=== PATIENT | female | born 1940 | race Caucasian/White ===

== ENCOUNTER 2024-01-16 15:54 | Inpatient (IN) | payer MEDICARE, SELFPAY ==
[2024-01-16] VITALS (38 sets, daily range): BP systolic 74–127; BP diastolic 27–105; BMI 25.1
--- NOTE | 2024-01-16 11:30 | ED.GENMED ---
Addendum entered and electronically signed by Jaime Hill DO 01/16/24 13:12:
Nursing tells me PICC line was placed yesterday at [facility] she was discharged from [facility] on the fourth of this month apparently old records have been requested
Original Note:
History of Present Illness
General
Chief Complaint: Swelling
Source: patient
Exam Limitations: none
Time Seen by Provider: 01/16/24 10:44
Nursing documentation reviewed up to this point in time: agreed with
Travel History
Have you had any contact with someone who has COVID-19?: No
Do you have any symptoms of coronavirus? Fever > 100 degrees, chills, cough, shortness of breath, sore throat, loss of taste or smell, muscle aches, or headache?: No
History of Present Illness
History of Present Illness:
group home patient presents with swelling and low blood pressure apparently has A-fib congestive heart failure and infiltrated PICC line on the right upper extremity wound on her right heel, and buttocks
Other history is limited patient is confused hypotensive
Prior visits to [facility]
Past History
Past History
ED Past Medical History: Arrthythmia, CHF, HTN, Renal failure and Psychiatric
Social History
Tobacco: Other
Alcohol: Other
Drug: Other
Personal: Other
Living: group home
Employment: Not employed
Family History
Family History: Unable to obtain
Review of Systems
Review of Systems
Other source history: transfer record
All Other Systems: Not applicable
Phy Exam
Physical Exam
Physical Exam:
Physical Exam
General: Ill-appearing for
Neck: Jaundice
Heart: Regular
Lungs: Bibasilar crackles
Abdomen: Mild diffuse tenderness
Neuro: Confused, follows simple commands
Skin: no rash
Psychiatric: Disheveled
Extremities: Swelling of the right upper extremity site of a PICC line lower extremity swelling is present Steri-Strip wound on the right posterior calf pressure ulcer in the right posterior heel
Scores
Heart Failure Risk
Heart Failure Risk Score: Not Applicable
Course
Orders/Labs/Results
Orders:
Orders
01/16/24 10:49
Electrocardiogram (*1) Urgent
Reason for Study: Chest Pain
Cardiac Monitoring- Treatment ONCE
EKG- Treatment ONCE
IV Insert/Care/Rem.- Treatment PRN
01/16/24 11:11
Straight cath- Treatment ONCE
CR Chest Portable - 1 View Urgent
Comment:
Reason For Exam: low bp
Reason Study Needs to be Portable: Patient Unstable
01/16/24 11:19
Foot, Right 2 View [CR Foot - Right 2 Views] Urgent
Comment:
Reason For Exam: swelling
Tib/Fib, Right 2 View [CR Leg Tibia/fibula Right 2 Vw] Urgent
Comment:
Reason For Exam: swelling
01/16/24 11:25
Add On- LAB Urgent
Tests Added?: esr/crp/procalcitonin
Rectal Temp- Treatment ONCE
01/16/24 11:31
C-Reactive Protein Urgent
Comment: ADD ON
Complete Blood Count/With Diff Urgent
Comprehensive Metabolic Panel Urgent
Erythrocyte Sed Rate Urgent
Comment: ADD ON
Lactic Acid Urgent
NT-proBNP Urgent
Procalcitonin Urgent
Comment: ADD ON
TSH Urgent
Troponin I Urgent
01/16/24 11:35
0.9% Sodium Chloride 1000 ml [Nss] 1,000 ml IV BOLUS
01/16/24 11:42
0.9% Sodium Chloride 500 ml [Nss] 500 ml IV BOLUS
01/16/24 11:45
Blood Culture Q30M
CAROL Source: Blood/Venous
Specimen Description:
01/16/24 12:03
Urinalysis Reflex To Culture Urgent
Date Specimen was Collected: 01/16/24
Time Specimen was Collected: 12:00
Urine Microscopic Reflex Cult Urgent
Urine Culture Urgent
CAROL Source: U
Specimen Description:
Obtained by: Random
Date Specimen was Collected: 01/16/24
Time Specimen was Collected: 12:00
01/16/24 12:06
CT Abd/pel Without Iv Or Oral Urgent
Comment:
Reason For Exam: arf sepsis
01/16/24 12:24
Blood Culture Q30M
CAROL Source: Blood/Venous
Specimen Description:
01/16/24 12:36
Aztreonam [Azactam] 1,000 mg IV NOW STA
01/16/24 12:40
0.9% Sodium Chloride 1000 ml [Nss] 1,000 ml IV BOLUS
01/16/24 12:48
Vancomycin [Vancocin] 1,500 mg 0.9% Sodium Chloride [Nss] 20 ml 0.9% Sodium Chloride 250 ml [Nss] 250 ml IV NOW
Abnormal Lab Results
01/16/24 01/16/24
11:31 12:03
WBC 19.2 H 10^3/uL
(4.8-10.8)
RBC 3.15 L 10^6/uL
(4.20-5.40)
Hgb 9.3 L g/dL
(12.0-16.0)
Hct 28.6 L %
(37.0-47.0)
MCHC 32.5 L g/dL
(33.0-37.0)
RDW 15.2 H %
(11.5-14.5)
Abs Immat Gran (auto) 0.8 H 10^3/uL
(0-0.05)
Absolute Neuts (auto) 16.0 H 10^3/uL
(1.4-6.5)
Absolute Monos (auto) 1.1 H 10^3/uL
(0.1-0.6)
Immature Gran % 4.1 H %
(0-0.5)
Neutrophils % 83.6 H %
(42.2-75.2)
Lymphocytes % 6.1 L %
(20.5-51.1)
ESR 45 H mm/hour
(0-20)
Sodium 122 L mmol/L
(135-145)
Chloride 90 L mmol/L
(98-107)
BUN 103 H* mg/dl
(7-17)
Creatinine 3.0 H mg/dL
(0.6-1.0)
Glucose 140 H mg/dl
(70-99)
Calcium 7.9 L mg/dl
(8.4-10.2)
AST 146 H U/L
(14-36)
ALT 59 H U/L
(0-35)
C-Reactive Protein 71.30 H mg/L
(0.0-10.00)
Total Protein 5.2 L g/dl
(6.3-8.2)
Albumin 2.4 L g/dl
(3.5-5.0)
Procalcitonin 1.05 H ng/ml
(0.0-0.25)
TSH 5.91 H uIU/ml
(0.47-4.68)
Ur Occult Blood Reflex 4+ A
(Negative)
Urine Bilirubin 1+ A
(Negative)
Leukocyte Esterase Rfl 2+ A
(Negative)
Urine RBC 3-6 A /HPF
(0-2)
Urine Bacteria (Reflex) Many A
(Negative)
Urine Albumin (Reflex) 1+ A
(Neg - Trace)
01/16/24 11:31
01/16/24 11:31
Vital Signs
Initial and Last Documented VS:
Initial Vital Signs
Resp
15
01/16/24 10:48
Last Documented Vital Signs
Temp Pulse Resp BP Pulse Ox
98 F 50 12 81/35 100
01/16/24 11:44 01/16/24 12:45 01/16/24 12:45 01/16/24 12:45 01/16/24 12:00
MDM/Problems Addressed
Differential Diagnosis Includes:
sepsis af osteo anemia cardiac event heart failure electrolyte abnormality
MDM/Problems Addressed:
low bp, edema, wound
Chronic conditions affecting care: HTN, Arrhythmia, Neurological disorder and Kidney disease
Acute Exacerbation and/or Progression of Chronic Illness: HTN, Arrhythmia, Neurological disorder and Kidney disease
*Radiology
Radiology exam reviewed: preliminary read by ED provider
*Pulse Oximetry
Patient hypoxic: no
*EKG
Interpreted by ED Provider?: Yes
Interpretation: abnormal
Comparison EKG: no comparison EKG present
Heart Rate: 78
Rate: normal
Rhythm: sinus
Ischemia: non-specific ST changes
*Critical Care Note
Total Time (30-74mins, 75-104mins- exclusive of procedures): 32
Patient Management
Social determinants of health affecting care: Living situation and Poor social support
Update Note
Update Note:
Update, fluctuating blood pressures white count up creatinine up unclear what her baseline has been treated with avoid resuscitation broad-spectrum antibiotics allergies noted chest x-ray noted urine noted will check CT of the abdomen to rule out
any obstruction or other intra-abdominal process,
ED Attending Note
-
Portions of this chart may have been created with voice recognition software.� Occasional wrong word or��sound alike� substitutions may have occurred due to the inherent limitations of voice recognition software.
Discharge Plan
Departure
Patient Disposition: Admit
Date of Disposition: 01/16/24
Time of Disposition: 13:07
Admit to: ICU
Presentation/result/management discussed w/ accepting MD/DO: Hospitalist
Patient with high blood pressure during this ER visit?: No
Condition: Serious
Discharge Problem:
Sepsis
Prescriptions:
No Action
sennosides [senna] 8.6 mg Tablet
8.6 mg PO [id number] PRN (Reason: constipation)
acetaminophen [Tylenol] 325 mg Tablet
650 mg PO Q4H PRN (Reason: mild pain)
miconazole nitrate [Micatin] 2 % Cream
1 applic TOPICAL BID
amiodarone 200 mg Tablet
200 mg PO DAILY
guaifenesin [Robitussin Mucus-Chest Congest] 100 mg/5 mL Liquid
200 mg PO Q6HPRN PRN (Reason: cough)
spironolactone 25 mg Tablet
12.5 mg PO QPM
meclizine 25 mg Tablet
25 mg PO Q4HPRN PRN (Reason: dizziness)
bisacodyl 10 mg Suppository
10 mg NV DAILY PRN (Reason: if no results for MOM)
furosemide 20 mg Tablet
20 mg PO DAILY
metoprolol succinate 25 mg Tablet Extended Release 24 Hr
25 mg PO DAILY
nystatin 100,000 unit/gram Powder
1 applic TOPICAL BID
oxycodone 5 mg Tablet
5 mg PO Q8H PRN (Reason: severe pain)
Dakin's Solution 0.25 % Solution
1 applic TOPICAL DAILY
cholecalciferol (vitamin D3) 1,250 mcg (50,000 unit) Capsule
1,250 mcg PO Q30D
Patient Comments:
01/16/2024, start date: 01/01/2024; end date: 02/26/2024.
cholecalciferol (vitamin D3) 125 mcg (5,000 unit) Tablet
125 mcg PO Q30D
Patient Comments:
01/16/2024, start date: 01/01/2024; end date: 02/26/2024.
Eliquis 2.5 mg Tablet
2.5 mg PO BID
Dextrose 5%/Electrolyte #48
1 dose IV .EVERY SHIFT
Rx Instructions:
01/16/2024, use 80ml/hr intravenously every shift for hydration; run at 80ml per hr [id number].
povidone-iodine [Betadine] 10 % Solution
1 applic TOPICAL Q48H
Zinc Oxide Paste
1 applic topical TID
Patient Comments:
01/16/2024, [facility] does not have a strength.
Referrals:
Tim Beaver MD [Family Provider] -
Interventions
Interventions:
*Risk Screen - Suicide Last Done: 01/16/24 10:50
*General Assessment Last Done: 01/16/24 10:50
*Neglect/Abuse Screening Last Done: 01/16/24 10:50
ED- Fall Risk Assessment Last Done: 01/16/24 10:50
*ED COVID-19 Vaccine History Last Done: 01/16/24 10:50
ZA-Xmknkw-Hwlnqykkfb Assessment Last Done: 01/16/24 11:44
ED- Cardiac Assessment Last Done: 01/16/24 11:44
ED-Female Genitourinary Assessment Last Done: 01/16/24 11:44
ED- Pulmonary Assessment Last Done: 01/16/24 11:44
ED-Skin Assessment Last Done: 01/16/24 11:44
Discharge Date and Time
Print Language: URUGUAYAN
[2024-01-16] MEDS: NSS 1000 IV ×5 (11:43→23:12)
[2024-01-16 11:46] LABS: % Basophils 0.3 % (0-2); % Eosinophils 0.4 % (0-6); % Immature Granulocytes 4.1 % (0-0.5); % Lymphocytes 6.1 % (20.5-51.1); % Monocytes 5.5 % (1.7-9.3); % Neutrophils 83.6 % (42.2-75.2); Absolute Basophils 0.1 10^3/uL (0-0.2); Absolute Eosinophils 0.1 10^3/uL (0-0.7); Absolute Immature Granulocytes 0.8 10^3/uL (0-0.05); Absolute Lymphocytes 1.2 10^3/uL (1.2-3.4); Absolute Monocytes 1.1 10^3/uL (0.1-0.6); Hematocrit 28.6 % (37.0-47.0); Hemoglobin 9.3 g/dL (12.0-16.0); Mean Corp Hgb Conc. 32.5 g/dL (33.0-37.0); Mean Corpuscular Hgb 29.5 pg (27.0-31.0); Mean Corpuscular Volume 90.8 fL (81.0-99.0); Mean Platelet Volume 9.7 fL (7.4-10.4); Nucleated Red Blood Cells % 0.4 %; Platelet Count 334 10^3/uL (130-400); Red Blood Cell Count 3.15 10^6/uL (4.20-5.40); Red Cell Dist. Width 15.2 % (11.5-14.5); White Blood Cell Count 19.2 10^3/uL (4.8-10.8)
--- NOTE | 2024-01-16 11:55 | VATNOTE ---
Called to attempt IV start on pt. RUE PICC line noted. Advised that a chest x-ray be ordered to confirm tip placement. Report from radiologist confirms tip placement in the distal SVC. PCN notified that PICC is OK to use at this time. Pt is grossly
edematous on her right arm and leg at initial assessment.
[2024-01-16 11:59] LABS: Lactic Acid 1.7 mmol/L (0.7-2.0)
[2024-01-16 12:03] LABS: ALT (SGPT) 59 U/L (0-35); AST (SGOT) 146 U/L (14-36); Albumin 2.4 g/dl (3.5-5.0); Alkaline Phosphatase 121 U/L (38-126); Blood Urea Nitrogen 103 mg/dl (7-17); Calcium 7.9 mg/dl (8.4-10.2); Carbon Dioxide 26 mmol/L (22-30); Chloride 90 mmol/L (98-107); Glucose 140 mg/dl (70-99); Potassium 4.4 mmol/L (3.5-5.1); Sodium 122 mmol/L (135-145); Total Bilirubin 1.1 mg/dl (0.2-1.3); Total Protein 5.2 g/dl (6.3-8.2); eGFR 14.86
[2024-01-16 12:11] LABS: NT-proBNP 2690 pg/ml
[2024-01-16 12:18] LABS: Urine Albumin 1+ (Neg - Trace); Urine Bilirubin 1+ (Negative); Urine Character Very Cloudy (Clear); Urine Color Yellow; Urine Glucose Negative (Negative); Urine Ketone Negative (Negative); Urine Leukocyte 2+ (Negative); Urine Nitrite Negative (Negative); Urine Occult Blood 4+ (Negative); Urine Specific Gravity 1.015 (<1.030); Urine Urobilinogen Negative (Neg - 1+)
[2024-01-16 12:30] LABS: Procalcitonin 1.05 ng/ml (0.0-0.25)
[2024-01-16 12:40] LABS: Erythrocyte Sed Rate 45 mm/hour (0-20)
--- NOTE | 2024-01-16 12:46 | EDRN ---
Pharmacy called to dose and send Vancomycin as per order.
--- NOTE | 2024-01-16 12:47 | EDRN ---
At 11:15 IV VAT RN Jolene was down to attempt IV access and unable to get IV access. Sara RN unable to find a vein as was I unable to find a vein. ED PCT Trae unable to get blood cultures so phlebotomy was called and 2 sets of blood cultures drawn
and sent at pako 12:30. Pt has a PICC line in R ac. Arm is very edematous. CXR portable done at 1120 and okayed. IV attempts stopped and blood drawn from PICC line though unable to draw blood cultures.
[2024-01-16 12:53] LABS: Urine Bacteria Many (Negative); Urine Squamous Cell 0-2 /LPF (Few)
--- NOTE | 2024-01-16 12:53 | EDRN ---
Phlebotomy only yessica 1 set of blood cultures. Will have to call phlebotomy back to draw set #2.
[2024-01-16 13:02] LABS: TSH 5.91 uIU/ml (0.47-4.68)
--- NOTE | 2024-01-16 13:10 | EDRN ---
Manjula Jones states pt was admitted to their facility from [facility] and that PICC line was placed yesterday at 16:00 at their facility. Unknown if it is a power port for CT scan.
[2024-01-16] MEDS: AZACTAM 1000 MG IV (13:45)
[2024-01-16] MEDS: STERILE WATER FOR INJECTION 10 ML IV ×2 (13:46→23:13)
[2024-01-16] MEDS: VANCOCIN 300 ML IV (13:52)
[2024-01-16] MEDS: VANCOCIN 300 MG IV (13:52)
--- NOTE | 2024-01-16 13:59 | EDRN ---
Dr. Forman in to see pt (resident working w/ Dr. Mckeon)
--- NOTE | 2024-01-16 14:23 | WOUNDNOTE ---
WOUND/SKIN CARE NOTE: PT identified by name and .
R heel
R lower posterior leg
R lower posterior leg
R lateral lower leg just distal to knee.
R anterior knee
L anterior knee
L lower leg anterior portion
L lower leg about ankle.
L buttocks.
coccyx and R buttocks
Bilateral buttocks w/ coccyx seen
Bilateral buttocks
R buttock
R lower posterior leg
L lower posterior leg.
L heel
L antecubital area
L lower arm bruising
L wrist palmar surface
L wrist deformity noted
R arm PICC line
R arm edema
--- NOTE | 2024-01-16 14:40 | EDRN ---
Report called to Martha CURRAN at this time.
--- NOTE | 2024-01-16 14:57 | EDRN ---
Dr. Avelar in room w/pt at this time.
--- NOTE | 2024-01-16 14:58 | WOUNDNOTE ---
WOUND/SKIN care note. Pt identified by name and .
R buttocks
Coccyx area
R heel
--- NOTE | 2024-01-16 15:32 | EDRN ---
IV VAT BINA Fernández is changing the PICC dressing at this time.
--- NOTE | 2024-01-16 15:34 | EDRN ---
This RN TT'd Dr. Christianson about adding on the urine tests.
--- NOTE | 2024-01-16 16:12 | EDRN ---
SBP at 16:00 74 w/ MAP 48. This RN texted both DR. Langford and Dr. Avelar at this time. IV bolus #3 completed at 15:50 pako,.
--- NOTE | 2024-01-16 16:35 | EDRN ---
This RN received the fax of information from [facility] at 16:35.
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
--- NOTE | 2024-01-16 17:06 | EDRN ---
This RN at 16:[address] Christianson and [address] Avelar about SBP 84. Pt was brought to floor prior to orders for response of increasing IVF NSS going at 100 mL per hour to 150 mL per hour. Order was discussed in TT but not written.
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
[2024-01-16 17:37] LABS: Magnesium 1.6 mg/dl (1.6-2.3)
[2024-01-16 17:45] LABS: Urine Sodium 33 mmol/L (30-90)
--- NOTE | 2024-01-16 17:48 | PTCARENOTE ---
17:30 Arrived from ED via stretcher. Patient confused and disoriented. BP via left upper arm 101/50 MAP 67; SB 55 RR 15; 99% 2L via nasal canula. patient poor historian, unable to provide answer on admission questions. Arrived with RT upper
extremities Single lumen PICC line. Per medical records PICC line was inserted in a care home for hydration.
patient disoriented of place and time; SB 54-55; Abdomen round; Unknow LBM. INcontinent of urine. Purwick placed. Chronic lymphedema. RT LE and RT upper arm +4 lymphedema. left LE +1 ; Pedal pulses checked by doppler. Skin pale. Sacrum wound; Heels
wound; RT left large hemotoma Wound care nurse consult. Son iWll called. he was made aware that pt in room 81927; Will stated that pt was at [facility] recently after she was discharge after H.
[2024-01-16 18:13] LABS: Osmolality Urine 414 mOsm/kg (300-900)
[2024-01-16] MEDS: ProAmatine 10 MG PO (18:51)
[2024-01-16 19:30] LABS: INR 2.57; INR 2.76; Lactic Acid 0.9 mmol/L (0.7-2.0); PT 27.5 Sec (11.4-14.6); PT 29.1 Sec (11.4-14.6)
[2024-01-16 19:31] LABS: APTT 43.6 Sec (23.4-35.0)
[2024-01-16 19:45] LABS: Body Fluid for Eosinophils No Eosinophils seen
[2024-01-16] MEDS: DESENEX/MITRAZOL/ZEASORB 1 APPLIC TOPICAL (19:54)
[2024-01-16] MEDS: COLACE 100 MG PO (19:55)
[2024-01-16] MEDS: DESITIN MAXIMUM STRENGTH PASTE 1 APPLIC TOPICAL ×2 (19:55→22:05)
--- NOTE | 2024-01-16 20:00 | PTCARENOTE ---
Received patient at 1900. Pt. currently in bed, son Will at bedside. Pt. oriented to self, confused to place and time. Denies pain/discomfort. Crdiac rhythm Sinus Kike. Blood pressure hypotensive in ED. Given 3L IVF, now on maintenance IVF
150ml/hr. Blood pressure has improved. Currently on 2L nasal cannula. Lungs sound clear. Currently NPO. Purewick drainage device in place, urine draining without issue. Skin as documented. Discussed plan of care with patient and her son. Vital signs
stable at this time.
--- NOTE | 2024-01-16 20:22 | PTCARENOTE ---
Wound on admission:
Sacrum: DTI in entire sacrum : purple to blue color. DTI wound bed 2x2x0.5 cm open area stage III; covered with foam dressing
Heels DTI no open areas
RT rush 1x1 bloody blister
--- NOTE | 2024-01-16 20:46 | PHA.VAN.IN ---
Assessment
- Assessment
Renal Function: Appears elevated from baseline (~1.7 per [facility] records)
Concomitant Antimicrobials: cefepime, metronidazole
Plan
- Plan
Initial / Loading Dose: vanc 1500mg administered in ER @ 1352
Maintenance Regimen: dosing by level
Monitoring: random level 01/16 0600
Pharmacokinetics Vancomycin I
- -
Patient Age: 83
Patient Sex: Female
Vancomycin Day #: 1
Indication: Skin And Soft Tissue
Requesting Provider: Dr. Evans
Pertinent Antimicrobial Allergies:
cefuroxime - swollen legs and itching
cephalexin - unknown
ciprofloxacin - unknown
nitrofurantoin - unknown
penicillins - unknown
sulfa - unknown
Admission at [facility] 12/16-12/23 pt received cefepime and vancomycin per [facility] records
Height / Weight:
Height 5 ft 2 in
Actual Weight 62.2 kg
- Vital Signs / Lab Results
Temp Pulse Resp BP Pulse Ox
97.9 F 53 17 96/47 98
01/16/24 20:00 01/16/24 20:00 01/16/24 20:00 01/16/24 20:00 01/16/24 20:00
Lab Results - Hematology
01/16/24
11:31
WBC 19.2 H
Lab Results - Chemistry
01/16/24
11:31
BUN 103 H*
Creatinine 3.0 H
Albumin 2.4 L
01/16/24 01/16/24
11:31 19:10
Lactic Acid 1.7 0.9
Lab Results - Urine
01/16/24
12:03
Urine Nitrite (Reflex) Negative
Leukocyte Esterase Rfl 2+ A
Urine WBC (Reflex) 6-10
Ur Squamous Epith Cells 0-2
Urine Bacteria (Reflex) Many A
[2024-01-16] MEDS: DULCOLAX 5 MG PO (20:49)
[2024-01-16] MEDS: SENOKOT-S 1 TABLET PO (20:49)
[2024-01-16] MEDS: FLEXBUMIN 100 IV ×2 (20:49→23:13)
[2024-01-16 20:51] LABS: Urine Protein 172 mg/dl (0-12)
[2024-01-16] MEDS: FLAGYL 500 MG 100 IV (20:51)
[2024-01-16] MEDS: ANTIFUNGAL CLEAR 1 APPLIC TOPICAL (21:19)
[2024-01-16] MEDS: DILAUDID 0.25 MG IV (21:20)
[2024-01-16] MEDS: MAXIPIME 1000 MG IV (23:13)
[2024-01-17] VITALS (35 sets, daily range): BP systolic 91–119; BP diastolic 37–98; O2SAT 86; BMI 25.8
--- NOTE | 2024-01-17 00:15 | PTCARENOTE ---
Pt. assessment unchanged. Blood pressure has remained stable. 2nd dose of IV Albumin infusing. Pt. appears comfortable. No signs of pain/discomfort. Vital signs stable at this time.
[2024-01-17] MEDS: FLAGYL 500 MG 100 IV ×3 (03:25→19:40)
[2024-01-17 03:57] LABS: % Basophils 0.1 % (0-2); % Eosinophils 0.1 % (0-6); % Immature Granulocytes 2.7 % (0-0.5); % Lymphocytes 4.5 % (20.5-51.1); % Monocytes 4.5 % (1.7-9.3); % Neutrophils 88.1 % (42.2-75.2); Absolute Immature Granulocytes 0.4 10^3/uL (0-0.05); Absolute Lymphocytes 0.6 10^3/uL (1.2-3.4); Absolute Monocytes 0.6 10^3/uL (0.1-0.6); Absolute Neutrophils 11.8 10^3/uL (1.4-6.5); Mean Corp Hgb Conc. 31.9 g/dL (33.0-37.0); Mean Corpuscular Hgb 30.3 pg (27.0-31.0); Mean Platelet Volume 9.7 fL (7.4-10.4); Nucleated Red Blood Cells % 0.2 %; Platelet Count 193 10^3/uL (130-400); Red Blood Cell Count 2.18 10^6/uL (4.20-5.40); Red Cell Dist. Width 15.3 % (11.5-14.5); White Blood Cell Count 13.4 10^3/uL (4.8-10.8)
[2024-01-17 04:02] LABS: INR 2.85; PT 29.9 Sec (11.4-14.6)
[2024-01-17 04:03] LABS: APTT 46.5 Sec (23.4-35.0)
[2024-01-17 04:08] LABS: ALT (SGPT) 41 U/L (0-35); AST (SGOT) 104 U/L (14-36); Albumin 2.6 g/dl (3.5-5.0); Alkaline Phosphatase 83 U/L (38-126); Blood Urea Nitrogen 79 mg/dl (7-17); Calcium 7.6 mg/dl (8.4-10.2); Carbon Dioxide 20 mmol/L (22-30); Chloride 105 mmol/L (98-107); Estimated Creatinine Clearance 17 ml/min; Glucose 98 mg/dl (70-99); Hematocrit 20.7 % (37.0-47.0); Hemoglobin 6.6 g/dL (12.0-16.0); Magnesium 1.5 mg/dl (1.6-2.3); Phosphorus 3.7 mg/dl (2.5-4.5); Potassium 3.8 mmol/L (3.5-5.1); Sodium 132 mmol/L (135-145); Total Bilirubin 1.3 mg/dl (0.2-1.3); Total Protein 4.8 g/dl (6.3-8.2); eGFR 24.18
[2024-01-17 04:24] LABS: Free T4 2.58 ng/dl (0.78-2.19)
--- NOTE | 2024-01-17 04:30 | PTCARENOTE ---
Pt. assessment remains unchanged. Blood pressure normotensive. AM labs drawn. Hemoglobin went from 9.3 to 6.6. Patient shows no signs or symptoms of bleeding. RAJ Quintana notified. Repeat H+H drawn and sent to lab. Vital signs stable at this
time.
[2024-01-17 04:46] LABS: Hematocrit 20.3 % (37.0-47.0); Hemoglobin 6.5 g/dL (12.0-16.0)
[2024-01-17] MEDS: MAGNESIUM SULFATE 50 IV (05:27)
--- NOTE | 2024-01-17 05:27 | W.PN.UPDATE ---
Update Note
Progress Note Update
US Periph Venous UPPER Ext RT results: Small nonocclusive thrombus formation in the basilic vein.�
INR currently 2.85= will start heparin if INR below 2.�
PICC line remains in, it is well positioned, flushing ok and has good blood return.�
--- NOTE | 2024-01-17 06:29 | CONS.URO ---
Consultation
-
Date/Time Consultation Performed: 01/16 610
Performing Provider: Binta
Medical History
History of Present Illness
Pt admitted to [facility]'s[facility] with evolving sepsis of uncertain etiology. Recently admitted to [facility] -- details unclear, patient cannot provide reliable information
Past Medical History
Past Medical History: Arrhythmia and Other (extensive comorbidities - see H&P)
Social History
Unable to obtain full social history at this time due to: Dementia (live in [place])
Family History
Family History: Unable to Obtain
Allergies/Home Medications
Allergies
Allergy/AdvReac Type Severity Reaction Status Date / Time
cefuroxime Allergy Swollen Verified 01/16/24 20:09
legs and
itching
cephalexin Allergy Unknown Verified 01/16/24 20:09
cetirizine Allergy Unknown Verified 01/16/24 11:07
ciprofloxacin [From Cipro] Allergy Unknown Verified 01/16/24 11:07
methenamine Allergy Unknown Verified 01/16/24 11:07
mirabegron Allergy Unknown Verified 01/16/24 11:07
nitrofurantoin Allergy Unknown Verified 01/16/24 11:07
Penicillins Allergy Unknown Verified 01/16/24 20:09
Sulfa (Sulfonamide Allergy Unknown Verified 01/16/24 11:07
Antibiotics)
Home Medications
�Medication �Instructions �Recorded �Confirmed �Type
Dextrose 5%/Electrolyte #48 1 dose IV .EVERY SHIFT 01/16/24 01/16/24 History
Zinc Oxide Paste 1 applic topical TID left buttock 01/16/24 01/16/24 History
acetaminophen 325 mg tablet 650 mg PO Q4H PRN mild pain 01/16/24 01/16/24 History
(Tylenol)
amiodarone 200 mg tablet 200 mg PO DAILY Arrhythmia 01/16/24 01/16/24 History
apixaban 2.5 mg tablet (Eliquis) 2.5 mg PO BID Blood Clot 01/16/24 01/16/24 History
Prevention/Tx
bisacodyl 10 mg rectal suppository 10 mg [place] DAILY PRN if no results 01/16/24 01/16/24 History
for MOM
cholecalciferol (vitamin D3) 1,250 1,250 mcg PO Q30D Supplement 01/16/24 01/16/24 History
mcg (50,000 unit) capsule
cholecalciferol (vitamin D3) 125 125 mcg PO Q30D Supplement 01/16/24 01/16/24 History
mcg (5,000 unit) tablet
furosemide 20 mg tablet 20 mg PO DAILY Fluid 01/16/24 01/16/24 History
Retention/Swelling
guaifenesin 100 mg/5 mL oral liquid 200 mg PO Q6HPRN PRN cough 01/16/24 01/16/24 History
meclizine 25 mg tablet 25 mg PO Q4HPRN PRN dizziness 01/16/24 01/16/24 History
metoprolol succinate 25 mg 25 mg PO DAILY Blood Pressure 01/16/24 01/16/24 History
tablet,extended release 24 hr
miconazole nitrate 2 % topical 1 applic topical BID B/L breast 01/16/24 01/16/24 History
cream (Micatin)
nystatin 100,000 unit/gram topical 1 applic topical BID abd fold 01/16/24 01/16/24 History
powder
oxycodone 5 mg tablet 5 mg PO Q8H PRN severe pain 01/16/24 01/16/24 History
povidone-iodine 10 % topical 1 applic topical Q48H left calf 01/16/24 01/16/24 History
solution (Betadine)
sennosides 8.6 mg tablet (senna) 8.6 mg PO [id number] PRN constipation 01/16/24 01/16/24 History
sodium hypochlorite 0.25 % 1 applic topical DAILY right heel 01/16/24 01/16/24 History
solution (Dakin's Solution)
spironolactone 25 mg tablet 12.5 mg PO QPM Blood Pressure 01/16/24 01/16/24 History
Physical Exam
Vital Signs
Vital Signs
Temp Pulse Resp BP Pulse Ox
97.9 F 57 13 99/41 100
01/17/24 04:00 01/17/24 06:00 01/17/24 06:00 01/17/24 06:00 01/17/24 06:00
Lab / Testing Results
Laboratory Results
01/17/24 04:25
01/17/24 03:21
Physical Exam
'don't touch me'
elderly female
awake
no oriented
conversant but confused
appears chronically ill -- edematous bruised extremities
Assessment / Plan
-
Sepsis of uncertain etiology
Left renal stone material -- not significantly obstructing
possible UTI: 'dirty UA', culture pending
As she has improved significantly overnight with current measures and no obstruction appears to be caused by left renal calculous material, would urologically observe at this point.
Data Reviewed
-
CT Scan: Image personally visualized and interpreted (left renal calculous debris within collecting system and renal pelvis -- no definitive hydro)
Ultrasound: Image personally visualized and interpreted (no hydro)
Lab Data: Labs Reviewed
Old Records: Requested
--- NOTE | 2024-01-17 08:01 | W.PN.INTV ---
Today's Communication / Plan
Recommendations
Abx
Trend Cr and sNa
Exchange PICC to opposit arm when able to
Trend INR
TRX 1 unit PRBC and 1 U FFP this AM
Aspiration precautions
GOC discussion
Assessment
-
Assessment: 83-year-old female with a past medical history of A-fib on Eliquis, history of CHF, macular degeneration, hypertension, hyperlipidemia, valvular heart disease, personal history of COVID-19, dementia, chronic lymphedema, and anemia who
presents from [facility] for bilateral lower extremity swelling as well as right upper extremity swelling. Patient has a RUE PICC line and there was concern for possible infiltration. Vitals initially in the ER showed she was afebrile to 98
�F, pulse rate: 61, respiratory rate: 20, and SpO2 100% on room air. Initial labs showed leukocytosis to 19.2, anemia 9.3, hyponatremia to 122, creatinine of 3, BUN of 103, CRP 71, procalcitonin 1.05, TSH of 5.91, and positive urinalysis suggestive
of UTI - urine cultures/blood cultures were collected. CXR showed low lung volumes with right hemidiaphragm elevation with mild bilateral subsegmental atelectasis/scarring. Patient also had a right tibia/fibula & foot x-ray showing marked diffuse
soft tissue swelling about the right foot and right ankle with diffuse osteopenia. CT abdomen/pelvis also obtained showing gallstones with enlarged gallbladder and sludge. Also left nonobstructing renal calculi as well as calculi at the left UPJ
with suggested mild obstructive uropathy. There also was large volume stool filling the rectum with sigmoid diverticulosis. Patient given antibiotics with aztreonam, vancomycin as well as IV fluids with total of 3L NS 0.9%. Considering patient
remains hypotensive with SBP in the 80s�90s range despite IV fluids, patient was admitted to the ICU for further care. Critical care services now consulted for additional management/recommendations.
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
osteoarthritis, CKD, history of CHF, hypertension, hyperlipidemia, valvular heart disease
Impression:
#Hypotension -likely due to sepsis with sources including UTI vs skin vs gallbladder vs bowel; also pt is hypoalbuminemic
#UTI - UCx growing GNR
#Sacral decubitus ulcer + right heel ulcer
#Hematoma seen on lateral RLE (?trauma)
#Hypochloremic, hyponatremia � likely due to reduced PO intake
#Severe STEFFANIE with uremia (BUN: 103)
#Left sided renal stones with suspected obstructive uropathy
#Transaminitis
#Acute anemia likely dilutional
#Coagulopathy with increased PT/INR & aPTT
#Constipation
#Increased TSH
#RUE PICC-line associated thrombus
Plan:
- Continue midodrine 5mg TID
- Low threshold to start vasopressors (levophed)
- Administer supplemental albumin 25g 25% to reach level >3g/dL
- No need for 3% NS as serum Na is >120
- Goal MAP>65
- Continue broad spectrum Abx (started 01/15) with cefepime, vanc and flagyl (she had received cefepime at [facility] in recent past and did not have any significant adverse reactions, as per pharmacy here)
- Follow up blood Cx, urine Cx and MRSA screen
- Wound care to sacral and R-heel ulcer
- Bowel regimen with senna/colace
- Hold amiodarone given she continues to be bradycardic
- Trend sNa levels - avoid overcorrection (<8-10mmol/L in 24 hrs, and <16-18mmol/L in 48 hrs)
- Nephrology consulted - recs appreciated
- Urology consulted given her severe STEFFANIE with suspected obstructive uropathy from stone in left UPJ --> no surgical intervention required at this time given no hydro seen on CT - urology recs appreciated
- Trend LFTs
- Maintain SpO2 >90-94%
- prn nebulized bronchodilators
- Replete electrolytes with K>4, Mg>2
- Maintain euglycemia with goal BG 140-180
- Given her RUE thrombus associated with PICC, she should remain anticoagulated with goal INR>2. I will however give FFP given her acute drop in Hb, but just will give 1 unit. Trend INR. When feasible, will change PICC line to opposite arm. No
need to remove PICC at this time given it still flushes and there is blood return.
- Incentive spirometer encouraged
- DVT ppx - SCDs only for now given coagulopathy; hold home Eliquis given her INR is >2; will Tx with FFP given her acute anemia with elevated INR
I discussed the above with the son, Will, in layman's terms to his satisfaction, and answered all of his questions. We discussed code status and goals of care and he believes that she would not want to be put on a ventilator if her breathing
worsened or undergo CPR if her heart were to stop. He needs to speak to the patient's POA which is the patient's sister before any official decision can be made. I asked him to please touch base with us after he has his conversations that I can
update her code status.
Critical care statement: A total of 43 minutes of critical care time was provided for this patient today. This includes management of unstable vital signs, evaluation of the patient at bedside, reviewing the patient's pertinent medical records
including radiographs, microbiology, laboratory evaluations, and discussion with primary team, consultants, pharmacy, nutrition, physical therapy, case management, charge nurse, critical care nursing, and respiratory therapy.
Data:
CT Abd/Pelvis without contrast 01-16-2024:
MARKEDLY LIMITED STUDY as a result of several factors.
Gallstones seen within a relative prominent size gallbladder also containing some high attenuation density which could represent sludge.
Markedly limited evaluation of the kidneys, as detailed above with some small nonobstructing left renal calculi as well as calculus and/or calculi at the left ureteropelvic junction with findings suggesting the possibility of accompanying mild
obstructive uropathy. Evaluation for renal space-occupying lesion markedly limited.
No intestinal obstruction. Large volume stool filling the rectum, markedly limited by beam hardening artifact from bilateral hip arthroplasties. Cannot exclude some accompanying perirectal stranding.
Sigmoid diverticulosis.
Right Tibia/Fibula XR/Foot XR 01-16-2024:
Marked diffuse soft tissue swelling about the right foot and right ankle.
Degenerative changes and diffuse osteopenia.
CXR 01-16-2024:
Pulmonary vascularity within the limits of normal.
Right PICC line with tip in distal SVC.
Markedly low lung volumes and elevation of right hemidiaphragm. Some mild bilateral subsegmental atelectasis and/or scarring.
Renal/Bladder US 01-16-2024:
Simple left renal cyst.
Nonobstructing left renal stone.
Incidental moderate gallbladder sludge.
Right Upper Extremity US 01-16-2024: Small nonocclusive thrombus formation in the basilic vein.
Subjective Dataa
Subjective Data
Date of Service:
Date of Service: January 17, 2024
Chief Complaint: Facilities Maintenance Engineer Follow Up
Subjective:
Patient seen this morning. Laying in bed in no acute distress. Son also came to bedside and I answered all of his questions. Anemic this morning per labs with Hb of 6.6 � 1 unit PRBC being transfused this morning. BP 103/42.
Review of Systems
General: Other (Unable to obtain due to patient's acute clinical status)
Objective Data
Data Reviewed
Vital Signs / I&O / Oxygen:
Vital Signs
Temp Pulse Resp BP Pulse Ox
97.4 F 53 22 103/52 97
01/17/24 07:51 01/17/24 08:59 01/17/24 07:51 01/17/24 08:59 01/17/24 06:30
Intake and Output
01/16/24 01/17/24 01/18/24
06:59 06:59 06:59
Intake Total 1400 / 1400 0 / 0
Output Total 600 / 600
Balance 800 / 800 0 / 0
SaO2 97
Nasal Cannula flow liters per 2
minute
Physical Exam
General: Comfortable
HEENT: Normocephalic and Anicteric
Cardiovascular: Irregular Rhythm, Peripheral Edema (RLE +2 edema, +1 LLE edema) and Other (Bradycardic)
Respiratory: Wheeze (Negative), Rhonchi (Negative), Non-Labored Respirations and Other (Coarse breath sounds heard bilaterally)
GI: Soft, Non Distended and Non Tender
Neurology: Awake and Alert
Skin: Warm, Dry and Other (Hemorrhagic bubble seen on lateral RLE; skin breakdown on right heel)
Labs/Micro/Reports
Lab Data
01/17/24 04:25
01/17/24 03:21
Laboratory Results
01/16/24 01/16/24 01/16/24
19:10 19:10 19:10
PT 29.1 H 27.5 H
INR 2.76 2.57
APTT 43.6 H
01/17/24
03:21
PT 29.9 H
INR 2.85
APTT 46.5 H
Microbiology
01/16/24 12:03 Urine Urine Culture - Preliminary
Gram negative bacilli
--- NOTE | 2024-01-17 08:35 | W.CON.NEPH ---
Consultation
-
Date/Time Consultation Requested: January 17, 2024 8:30 AM
Date/Time Consultation Performed: January 17, 2024 8:30 AM
Requesting Provider: Dr. Evans
Performing Provider: Dr. Marx
Reason for Consultation: Acute kidney injury
Medical History
-
Chief Complaint: Acute kidney injury
History of Present Illness:
This is a 83-year-old female who has never been to the [facility] system previously. She has typically received care at outside hospitals including [facility]. There is reports of chronic kidney disease though no obvious baseline, presumably close
to 1.7. She does have atrial fibrillation on chronic anticoagulation with Eliquis and rate control with amiodarone therapy. She appears to have significant anxiety at baseline. She was in the hospital in October and as well again on in November at
[facility]. Her hospitalization in November appeared to be for generalized weakness. At that time her creatinine had increased up to 2.1 but had improved after receiving IV fluids. She has noted to have significant lymphedema in the lower
extremities. She has previously been in palliative care through [facility]. After her last November admission she was sent to [facility]. She was therefore few weeks. She was then sent to the emergency room from [place] [facility] for right upper arm edema. On admission at [facility] she was noted to be significantly anemic with drop in hemoglobin now down to 6.5. Her blood pressures were marginal and her creatinine was elevated at 3 with significant azotemia with
BUN over 100. We are asked to assist with her renal issues. She is currently critically ill in the ICU.
Past Medical History
Atrial fibrillation, lymphedema, hypertension, hyperlipidemia, , bilateral hip replacement, right knee replacement, decubitus ulcer, subdural hematoma, right hemiparesis, left foot ankle surgery, macular degeneration
Social History
Tobacco: Non-Smoker
Alcohol: None
Family History
Family History: Unable to Obtain (Patient is a poor historian)
Allergies / Home Medications
Allergy/AdvReac Type Severity Reaction Status Date / Time
cefuroxime Allergy Swollen Verified 01/16/24 20:09
legs and
itching
cephalexin Allergy Unknown Verified 01/16/24 20:09
cetirizine Allergy Unknown Verified 01/16/24 11:07
ciprofloxacin [From Cipro] Allergy Unknown Verified 01/16/24 11:07
methenamine Allergy Unknown Verified 01/16/24 11:07
mirabegron Allergy Unknown Verified 01/16/24 11:07
nitrofurantoin Allergy Unknown Verified 01/16/24 11:07
Penicillins Allergy Unknown Verified 01/16/24 20:09
Sulfa (Sulfonamide Allergy Unknown Verified 01/16/24 11:07
Antibiotics)
�Medication �Instructions �Recorded �Confirmed �Type
Dextrose 5%/Electrolyte #48 1 dose IV .EVERY SHIFT 01/16/24 01/16/24 History
Zinc Oxide Paste 1 applic topical TID left buttock 01/16/24 01/16/24 History
acetaminophen 325 mg tablet 650 mg PO Q4H PRN mild pain 01/16/24 01/16/24 History
(Tylenol)
amiodarone 200 mg tablet 200 mg PO DAILY Arrhythmia 01/16/24 01/16/24 History
apixaban 2.5 mg tablet (Eliquis) 2.5 mg PO BID Blood Clot 01/16/24 01/16/24 History
Prevention/Tx
bisacodyl 10 mg rectal suppository 10 mg VT DAILY PRN if no results 01/16/24 01/16/24 History
for MOM
cholecalciferol (vitamin D3) 1,250 1,250 mcg PO Q30D Supplement 01/16/24 01/16/24 History
mcg (50,000 unit) capsule
cholecalciferol (vitamin D3) 125 125 mcg PO Q30D Supplement 01/16/24 01/16/24 History
mcg (5,000 unit) tablet
furosemide 20 mg tablet 20 mg PO DAILY Fluid 01/16/24 01/16/24 History
Retention/Swelling
guaifenesin 100 mg/5 mL oral liquid 200 mg PO Q6HPRN PRN cough 01/16/24 01/16/24 History
meclizine 25 mg tablet 25 mg PO Q4HPRN PRN dizziness 01/16/24 01/16/24 History
metoprolol succinate 25 mg 25 mg PO DAILY Blood Pressure 01/16/24 01/16/24 History
tablet,extended release 24 hr
miconazole nitrate 2 % topical 1 applic topical BID B/L breast 01/16/24 01/16/24 History
cream (Micatin)
nystatin 100,000 unit/gram topical 1 applic topical BID abd fold 01/16/24 01/16/24 History
powder
oxycodone 5 mg tablet 5 mg PO Q8H PRN severe pain 01/16/24 01/16/24 History
povidone-iodine 10 % topical 1 applic topical Q48H left calf 01/16/24 01/16/24 History
solution (Betadine)
sennosides 8.6 mg tablet (senna) 8.6 mg PO [id number] PRN constipation 01/16/24 01/16/24 History
sodium hypochlorite 0.25 % 1 applic topical DAILY right heel 01/16/24 01/16/24 History
solution (Dakin's Solution)
spironolactone 25 mg tablet 12.5 mg PO QPM Blood Pressure 01/16/24 01/16/24 History
Review of Systems
-
Significant pain in both legs right greater than left. She is unable to lift her legs. She denies chest pain or shortness of breath. No abdominal pain. No issues with bowel or bladder. No fever. The remainder of the complete review of systems
was negative
Physical Exam
Vital Signs
Vital Signs
Temp Pulse Resp BP Pulse Ox
97.7 F 54 22 93/60 97
01/17/24 07:39 01/17/24 07:39 01/17/24 07:39 01/17/24 07:39 01/17/24 06:30
Lab Results
WBC 13.4 10^3/uL (4.8-10.8) H 01/17/24 03:21
RBC 2.18 10^6/uL (4.20-5.40) L 01/17/24 03:21
Hgb 6.5 g/dL (12.0-16.0) L* 01/17/24 04:25
Hct 20.3 % (37.0-47.0) L* 01/17/24 04:25
Plt Count 193 10^3/uL (130-400) D 01/17/24 03:21
Sodium 132 mmol/L (135-145) L D 01/17/24 03:21
Potassium 3.8 mmol/L (3.5-5.1) 01/17/24 03:21
Chloride 105 mmol/L (98-107) 01/17/24 03:21
Carbon Dioxide 20 mmol/L (22-30) L 01/17/24 03:21
BUN 79 mg/dl (7-17) H 01/17/24 03:21
Creatinine 2.0 mg/dL (0.6-1.0) H 01/17/24 03:21
eGFR 24.18 01/17/24 03:21
Glucose 98 mg/dl (70-99) 01/17/24 03:21
Calcium 7.6 mg/dl (8.4-10.2) L 01/17/24 03:21
Phosphorus 3.7 mg/dl (2.5-4.5) 01/17/24 03:21
Geh-B-Sblzkryjgds Pept 2690 pg/ml 01/16/24 11:31
Albumin 2.6 g/dl (3.5-5.0) L 01/17/24 03:21
Physical Exam
Patient is awake alert poorly oriented and in no distress. Mood and affect were pleasant, insight and judgment were poor. Pupils are equal round and reactive to light, extraocular movements are intact, sclera were anicteric. Hearing was normal,
ears and nose are intact. Neck was supple with trachea midline and no thyromegaly. Oropharynx is clear. Heart was regular rate and rhythm without rubs. Lower extremities with 3+ bilateral edema. Right arm with 3+ edema. Lungs were coarse to
auscultation bilaterally and with normal excursion. Abdomen was soft, nontender, with normal active bowel sounds, and no hepatosplenomegaly. Skin was without rash and with decreased turgor. Scattered ecchymoses in the legs and arms.
Data Reviewed
-
Radiology: Image Personally Visualized and interpreted (Chest x-ray on January 16, 2024 shows elevated right hemidiaphragm decreased lung volumes)
CT Scan: Report Reviewed by me (CT of the abdomen pelvis without contrast on January 16, 2024 shows nonobstructive gallstones, left kidney stone nonobstructive, diverticulosis)
Ultrasound: Report Reviewed by me (Renal ultrasound on January 16, 2024 shows left 1.2 cm kidney stone nonobstructive, bilateral renal cysts, right kidney 8.4 cm, left kidney 8.9 cm; right upper extremity ultrasound on January 16, 2024 shows
nonocclusive thrombus basilic vein)
Labs: Labs Reviewed by me (Creatinine 2.0, BUN 79, potassium 3.8, bicarbonate 20, magnesium 1.5, calcium 7.6, hemoglobin 6.5, INR 2.85, AST 104, ALT 41, albumin 2.6, urinalysis 1+ albumin, 4+ blood, urine eosinophils negative, urine sodium 33, urine
creatinine 53)
Old Records: Reviewed (On December 18, 2023 creatinine 1.71, BUN 40, hemoglobin 9.5, potassium 4.9 albumin 3.8)
Assessment/Plan
-
Assessment:
Hypotension
Acute kidney injury
Hypomagnesemia
Metabolic acidosis
Azotemia
Hyponatremia
Acute anemia
Lymphedema
Elevated LFTs
nonobstructive left nephrolithiasis
Plan:
Transfusion packed red blood cells
Serial hemoglobin levels
Follow-up basic metabolic profile
Acute kidney injury likely mediated by anemia and hypotension
Replete magnesium
She had CT of the head as well as CT angiogram of the head at the end of November 2023 which showed no acute issues.
Update echocardiogram
No diuretics currently as she is not in overt failure. Is also unlikely that we will control her lymphedema with diuretics
PT OT, she is at high risk for worsening decubitus ulcers
Critical care time spent 40 minutes
[2024-01-17] MEDS: TYLENOL 650 MG PO (08:58)
[2024-01-17] MEDS: ProAmatine 5 MG PO ×3 (08:59→17:22)
[2024-01-17] MEDS: SENOKOT-S 1 TABLET PO ×2 (08:59→19:39)
[2024-01-17] MEDS: DAKIN'S SOLUTION 0.25% 1/2 STRENGTH 473 ML TOPICAL (09:00)
[2024-01-17] MEDS: DESITIN MAXIMUM STRENGTH PASTE 1 APPLIC TOPICAL ×3 (09:00→22:11)
[2024-01-17] MEDS: COLACE 100 MG PO ×2 (09:00→19:39)
[2024-01-17] MEDS: ANTIFUNGAL CLEAR 1 APPLIC TOPICAL ×2 (09:01→19:40)
[2024-01-17] MEDS: DESENEX/MITRAZOL/ZEASORB 1 APPLIC TOPICAL ×2 (09:01→16:49)
[2024-01-17 09:54] LABS: Iron 57 ug/dl (37-170)
[2024-01-17 09:56] LABS: Percent Saturation 43 % (20-50); Total Iron Binding Capacity 132 ug/dl (265-497)
[2024-01-17] MEDS: PROTONIX IV 40 MG IV ×2 (10:20→19:39)
[2024-01-17] MEDS: NSS (PRESERVATIVE FREE) 10 ML IV ×2 (10:20→19:39)
--- NOTE | 2024-01-17 10:37 | PHA.VAN.FU ---
Vancomycin Assessment / Plan
- Assessment
Renal Function: SCR Decreasing
In the past 24 hrs, patient has been: Afebrile
Concomitant Antimicrobials: Cefepime
- Assessment - Therapeutic Drug Monitoring
Random Level: R = 14 ~ 13.5hrs post Vanc 1500mg IV
- Dosing Plan
Continue: Dosing by level
Dosing by Level: Re-dose today (Vanc 750mg IV)
- Monitoring Plan
Random Level: 01/17 AM
- Follow Up
Pharmacy will continue to follow.
Vancomycin Follow UP
- -
Patient Age: 83
Patient Sex: Female
Vancomycin Day #: 2
Indication: Skin And Soft Tissue
Requesting Provider: Dr. Evans
Pertinent Antimicrobial Allergies:
cefuroxime - swollen legs and itching
cephalexin - unknown
ciprofloxacin - unknown
nitrofurantoin - unknown
penicillins - unknown
sulfa - unknown
Admission at [facility] 12/16-12/23 pt received cefepime and vancomycin per [facility] records
Height / Weight:
Height 5 ft 2 in
Actual Weight 63.9 kg
- Vital Signs / Lab Results
Temp Pulse Resp BP Pulse Ox
97.7 F 52 20 114/89 98
01/17/24 10:15 01/17/24 10:15 01/17/24 10:15 01/17/24 10:15 01/17/24 10:15
Lab Results - Hematology
01/16/24 01/17/24
11:31 03:21
WBC 19.2 H 13.4 H
Lab Results - Chemistry
01/16/24 01/17/24
11:31 03:21
BUN 103 H* 79 H
Creatinine 3.0 H 2.0 H
Estimated Creat Clear 17
Albumin 2.4 L 2.6 L
01/16/24 01/16/24
11:31 19:10
Lactic Acid 1.7 0.9
Lab Results - Urine
01/16/24
12:03
Urine Nitrite (Reflex) Negative
Leukocyte Esterase Rfl 2+ A
Ur Squamous Epith Cells 0-2
Microbiology Results
01/16/24 12:03 Urine Culture - Preliminary
Urine Gram negative bacilli
Therapeutic Drug Monitoring
Random Vancomycin 14.0 ug/ml 01/17/24 03:21
[2024-01-17] MEDS: STERILE WATER FOR INJECTION 10 ML IV ×2 (11:10→23:42)
[2024-01-17] MEDS: MAXIPIME 1000 MG IV ×2 (11:11→23:42)
--- NOTE | 2024-01-17 12:05 | PTCARENOTE ---
Hospitalist at bedside with patient. Updated plan of cares. Son and yarn hauler at bedside discussing goals of care. Family to update with POA. Continue follow up assessment, labs, blood product replacement, antibiotics as ordered and schedule plan
with pharmacy/levels. Continue skin cares and turning protocols. Supportive cares ongoing with emotional support. Social service in and out at bedside.
--- NOTE | 2024-01-17 12:19 | W.PN.HOSP.TC ---
Today's Communication/Plan
-
Reviewed monitor vital signs see plan
Continue with antibiotics
Follow cultures
Transfuse blood and monitor
Repeat hemoglobin later today
Monitor sodium
Monitor renal function
Replete magnesium
Assessment / Plan
Assessment / Plan
General: Appears Chronically Ill
HEENT: NormoCephalic
Respiratory: Clear
Cardiac: S1/S2 and Regular Rhythm
GI: Soft, Non Tender and Distended
Musculoskeletal: Edema, Right Upper Extremity, Edema, Left Lower Extremity, Edema, Right Lower Extremity and Other (ulcer on right posterior heel, ulcer on sacrum)
Skin: Dry and IV/Catheter Site (PICC line right upper extremity)
Neuro: Awake, Alert and Oriented
Psych: Calm
Severe Sepsis
suspect skin or urine source
urine cx with gram neg
on vanc, cefepime and Flagyl
Follow-up blood culture
midodrine
pressors if needed
-US right upper extremity ordered due to swelling where PICC line location; Small nonocclusive thrombus formation in the basilic vein
-Lactic acid normal
-CT Abd/pelvis showed Large volume stool filling the rectum, Sigmoid diverticulosis.
laxatives
elevated procal
speech eval
CT with left renal calculus debris within the collecting system and renal pelvis, no definite hydro. No intervention from urology other than monitoring
Request records from [facility]
STEFFANIE suspect 2/2 hypotension and anemia
monitor with blood transfusion
Monitor urine output
Acute anemia
Check iron panel, B12, folate
Add PPI
Does not appear to be bleeding
Transfuse and monitor
hold elqiuis
#STEFFANIE/?UTI
-Creatinine: 3, BUN 103
-U/A showed leukocyte esterase and many urine bacteria, urine cultures sent
-Urine studies ordered (urine urea, creatinine, osmolality, sodium, protein/creatinine, eosinophils)
-Renal ultrasound, bladder ultrasound (with straight cath >400) ordered
-Initiated IV fluids at 150 mls/hr
systolic murmur; not sure if new
echo
#Hyponatremia
-Sodium now 132
monitor
#Bilateral LL edema/Ulcer on right posterior heel
-Podiatry consulted
-Tibia/fibula xray showed Marked diffuse soft tissue swelling about the right foot and right ankle, Degenerative changes and diffuse osteopenia.
Transaminitis
Likely secondary to sepsis
Monitor
stage 3 sacral dequb
monitor
wound care
Bilateral lower extremity lymphedema
monitor
#CHF
unknown EF; does not appear to be in exacerbation
-Hold current hypertensive medications (spironolactone, furosemide)
-proBNP is 2690
-Monitor I&Os, monitor daily weights
-Monitor telemetry
#Paroxysmal atrial fibrillation
-Continue amiodarone
-Hold metoprolol succinate and Eliquis
-Monitor telemetry
Elevated TSH and free t4
check levels again after infection is resolved
Full code
DVT: SCD's; hold chemical 2/2 anemia
Code: Full
I spent a total of 56 minutes with the patient or on the floor. More than 50% of this time involved counseling and coordination of care.
Anticipated Discharge: > 48 hours
Subjective/Interval History
-
Date of Service: January 17, 2024
pain at times
Objective Data
-
Labs:
Laboratory Results
01/17/24 01/17/24
03:21 04:25
WBC 13.4 H
Hgb 6.6 L* D 6.5 L*
Hct 20.7 L* 20.3 L*
Plt Count 193 D
PT 29.9 H
INR 2.85
APTT 46.5 H
Sodium 132 L D
Potassium 3.8
Chloride 105
Carbon Dioxide 20 L
BUN 79 H
Creatinine 2.0 H
Glucose 98
Calcium 7.6 L
Total Bilirubin 1.3
AST 104 H
ALT 41 H
Alkaline Phosphatase 83
Vital Signs:
Vital Signs
Temp Pulse Resp BP Pulse Ox
98.2 F 43 17 107/43 98
01/17/24 12:00 01/17/24 12:00 01/17/24 12:00 01/17/24 12:00 01/17/24 12:00
I&O
01/16/24 01/17/24 01/18/24
06:59 06:59 06:59
Intake Total 1400 / 1500 1045 / 1045
Output Total 600 / 600
Balance 800 / 900 1045 / 1045
[2024-01-17] MEDS: VANCOCIN 150 IV (12:25)
[2024-01-17 13:18] LABS: Folate 8.1 ng/ml (2.76-20); Vitamin B12 489 pg/ml (239-931)
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
[2024-01-17 14:36] LABS: Hematocrit 25.7 % (37.0-47.0)
[2024-01-17 14:52] LABS: PT 28.6 Sec (11.4-14.6)
[2024-01-17 14:56] LABS: Hemoglobin 8.5 g/dL (12.0-16.0)
--- NOTE | 2024-01-17 16:06 | PTCARENOTE ---
Update assessment with Plant Quality Manager. Lab review, holding second FFP at this time. Following history, updates with son at length at bedside. Continue supportive cares, teaching and emotional support. Will continue with wound cares, skin cares as per
protocol.
[2024-01-17] MEDS: DILAUDID 0.5 MG IV ×2 (16:49→22:39)
--- NOTE | 2024-01-17 17:06 | PTCARENOTE ---
Wound cares and skin cares as per orders. Follow up with MD at bedside, pillows wedges and pads as per pressure relief. Continue turning protocol. Offer oral care and denture care patient refused. Skin cares cg bath wipes completed with linen
change. Pain medications with follow up via Emar, alternate pain relief measures diversional measures in use. Call ponce instruct and demo in reach at this assessment. Ongoing hourly rounds and patient safety checks.
--- NOTE | 2024-01-17 18:20 | W.CS.POD ---
Consult Summary - Podiatry
-
This patient is an 83 year old female, with H/O Afib on Eliquis, CHF, CKD and chronic lymphedema, admitted yesterday from the ER for Sepsis after being sent from [facility] with concern of severe RUE edema and bilateral LE edema. A chronic
wound of the posterior right heel was noted and podiatry was consulted to determine if this could be a source of infection. She has apparently been back and forth between [facility], [facility], [facility] and back to the [place], over
the last few weeks.
The patient reports both LE's have been very painful for a long while. She denies any fever, chills or sweats, nor any calf pain.
Patient is awake and alert, poorly oriented, in NAD.
DP pulses 2+ bilaterally, PT pulsed non palpable due to edema.
Moderate non-pitting edema of both lower extremities.
Decreased skin temperature, increased turgor, and chronic bruising of the LE's from knees to the feet.
There is a laceration 3-4cm along the lateral lower right leg from a recent injury, with steri strips-stable.
The plantar right heel is calluses with subepidermal ecchymosis. The posterior heel exhibits a similar appearance with the addition of a 1cm round superficial ulceration noted. This has a dry, granular base. No necrosis, malodor, discharge,
bleeding. No erythema, edema or cellulitis. No local signs of infection noted.
The left LE has no pressure or open lesions.
No interdigital maceration, break in skin.
Moderate hypersensitivity to the legs and feet, however how much of this is due to her dementia is unclear.
No overt deformities noted.
-Assessment:
Chronic lymphedema of both LE's with a stable and minor, dry, chronic posterior right heel ulceration.
Atrial fibrillation on Eliquis
HTN/CHF
CKD
Hyperlipidemia
Dimentia
-Plan:
The patient's posterior right heel wound is highly unlikely to be a source of systemic infection or her LE pain.
Wound care will determine dressings moving forward.
Recommended suspending the right heel off the bed surface with a pillow under the leg.
Please reconsult as necessary.
--- NOTE | 2024-01-17 19:45 | PTCARENOTE ---
Received patient at 1900. Pt. currently in bed. Awake and alert, but confused to place and situation. Denies any pain/discomfort currently. Heart rhythm Sinus Kike. Blood pressure normotensive. Currently on 2L nasal cannula. Lungs sound diminished.
Abdomen round, benign. Patient receiving bowel regimen. Purewick external catheter in place, draining without issue. Skin as documented. Discussed plan of care. Vital signs stable at this time.
--- NOTE | 2024-01-17 23:55 | PTCARENOTE ---
Pt. assessment unchanged. Pt. turned and given bath. C/o leg pain. Pt. given PRN diluadid for leg pain, see MAR. Heart rhythm remains Sinus Kike. BP normotensive. Vital signs stable at this time.
[2024-01-18] VITALS (27 sets, daily range): BP systolic 83–119; BP diastolic 39–105; BMI 25.8
[2024-01-18] MEDS: FLAGYL 500 MG 100 IV ×3 (03:23→19:51)
[2024-01-18] MEDS: DILAUDID 0.5 MG IV ×3 (05:28→17:44)
--- NOTE | 2024-01-18 05:30 | PTCARENOTE ---
Pt. urine via [employer] has prakash red appearance in cannister. LEATHER STAKER notified. AM labs drawn. Awaiting results. Pt. given PRN pain medication, see MAR. Vital signs stable at this time.
[2024-01-18 06:08] LABS: % Basophils 0.3 % (0-2); % Eosinophils 0.2 % (0-6); % Immature Granulocytes 2.9 % (0-0.5); % Lymphocytes 4.5 % (20.5-51.1); % Monocytes 3.3 % (1.7-9.3); % Neutrophils 88.8 % (42.2-75.2); Absolute Basophils 0.1 10^3/uL (0-0.2); Absolute Immature Granulocytes 0.5 10^3/uL (0-0.05); Absolute Lymphocytes 0.8 10^3/uL (1.2-3.4); Absolute Monocytes 0.6 10^3/uL (0.1-0.6); Absolute Neutrophils 16.5 10^3/uL (1.4-6.5); Hematocrit 26.1 % (37.0-47.0); Hemoglobin 8.7 g/dL (12.0-16.0); Mean Corp Hgb Conc. 33.3 g/dL (33.0-37.0); Mean Platelet Volume 9.5 fL (7.4-10.4); Nucleated Red Blood Cells % 0 %; Platelet Count 208 10^3/uL (130-400); Red Cell Dist. Width 16.9 % (11.5-14.5); White Blood Cell Count 18.5 10^3/uL (4.8-10.8)
[2024-01-18 06:20] LABS: INR 2.45; PT 26.5 Sec (11.4-14.6)
[2024-01-18 06:29] LABS: ALT (SGPT) 56 U/L (0-35); AST (SGOT) 109 U/L (14-36); Albumin 2.4 g/dl (3.5-5.0); Alkaline Phosphatase 104 U/L (38-126); Blood Urea Nitrogen 66 mg/dl (7-17); Calcium 7.9 mg/dl (8.4-10.2); Carbon Dioxide 22 mmol/L (22-30); Chloride 109 mmol/L (98-107); Estimated Creatinine Clearance 21 ml/min; Glucose 77 mg/dl (70-99); Potassium 3.7 mmol/L (3.5-5.1); Sodium 136 mmol/L (135-145); Total Bilirubin 1.8 mg/dl (0.2-1.3); Total Protein 4.7 g/dl (6.3-8.2); eGFR 31.61
[2024-01-18 06:34] LABS: Vancomycin Random 16.1 ug/ml
--- NOTE | 2024-01-18 07:20 | W.PN.URO.CBU ---
Today's Communication / Plan
-
will remain available should family/POA decide to pursue surgical intervention
Assessment / Plan
-
Overall clinically improved
with E. coli in urine and presumably chronically infected material in left kidney's collecting system, possible causing partial obstruction, ureteroscopy to clear debris and to place stent to alleviate obstruction MIGHT be beneficial; her staunch
opposition to intervention currently precludes consideration
Diagnosis
-
Date of Service: January 18, 2024
-
Patient Diagnosis:
Sepsis
E coli UTI
Left renal pelvis and collecting system: calcareous material
Subjective
-
'don't touch me, don't do anything to me:
Objective
-
Vital Signs
Temp Pulse Resp BP Pulse Ox
97.6 F 50 17 117/54 100
01/17/24 23:04 01/18/24 06:00 01/18/24 06:00 01/18/24 06:00 01/18/24 06:00
Intake and Output
01/17/24 01/18/24 01/19/24
06:59 06:59 06:59
Intake Total 1400 / 1500 1756 / 1756
Output Total 600 / 600 275 / 275
Balance 800 / 900 1481 / 1481
Intake:
Oral fluids 260 / 260
IV fluids (Total) 1100 / 1100
Nss 1,000 ml @ 100 mls/hr IV . 1100 / 1100
Q10H SARAVANAN Rx#:[id number]
IV piggybacks 300 / 400 550 / 550
Blood Products 475 / 475
Fresh frozen plasma 225 / 225
Packed red blood cells 250 / 250
Blood Product Amount Infused ( 471 / 471
mL)
Ffp24 Divided Unit Part 1 Unit 221 / 221
[id number]
Packed Rbc Leukoreduced Unit 250 / 250
[id number]
Output:
Urine, Voided 600 / 600 275 / 275
Other:
Transfused during hemodialysis?
Ffp24 Divided Unit Part 1 Unit Yes
[id number]
Number of approximated LARGE 1
amounts of urine
How many times incontinent 1
SMALL amount urine
How many times incontinent 1
MODERATE amount urine
How many times incontinent 1
SATURATED amount urine
Laboratory Results
01/18/24 05:27
01/18/24 05:27
urine cx: E. coli
Physical Exam
-
General - well developed, well nourished, no acute distress
Chest - clear bilaterally
Abdomen - soft, non-tender, positive bowel sounds, no CVAT, no incisional pain or distention
Genitalia - normal
Rectal - normal
Skin - warm & dry with no rash
Neuro - AOx3, no motor deficits
Extremities - no clubbing, no cyanosis, no edema
Incision - clean, dry
Dressing - clean, dry, intact
--- NOTE | 2024-01-18 08:03 | W.PN.INTV ---
Today's Communication / Plan
Recommendations
Abx
Trend Cr and sNa
Exchange PICC to opposite arm when able to
Trend INR
Aspiration precautions
Check RUQ US to rule out cholecystitis vs choledocholithiasis
GOC discussion held between myself and EMILIE, her sister Linda Xie. Decision made to make her DNR/DNI but continue full medical treatment.
Assessment
-
Assessment: 83-year-old female with a past medical history of A-fib on Eliquis, history of CHF, macular degeneration, hypertension, hyperlipidemia, valvular heart disease, personal history of COVID-19, dementia, chronic lymphedema, and anemia who
presents from [facility] for bilateral lower extremity swelling as well as right upper extremity swelling. Patient has a RUE PICC line and there was concern for possible infiltration. Vitals initially in the ER showed she was afebrile to 98
�F, pulse rate: 61, respiratory rate: 20, and SpO2 100% on room air. Initial labs showed leukocytosis to 19.2, anemia 9.3, hyponatremia to 122, creatinine of 3, BUN of 103, CRP 71, procalcitonin 1.05, TSH of 5.91, and positive urinalysis suggestive
of UTI - urine cultures/blood cultures were collected. CXR showed low lung volumes with right hemidiaphragm elevation with mild bilateral subsegmental atelectasis/scarring. Patient also had a right tibia/fibula & foot x-ray showing marked diffuse
soft tissue swelling about the right foot and right ankle with diffuse osteopenia. CT abdomen/pelvis also obtained showing gallstones with enlarged gallbladder and sludge. Also left nonobstructing renal calculi as well as calculi at the left UPJ
with suggested mild obstructive uropathy. There also was large volume stool filling the rectum with sigmoid diverticulosis. Patient given antibiotics with aztreonam, vancomycin as well as IV fluids with total of 3L NS 0.9%. Considering patient
remains hypotensive with SBP in the 80s�90s range despite IV fluids, patient was admitted to the ICU for further care. Critical care services now consulted for additional management/recommendations.
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
osteoarthritis, CKD, history of CHF, hypertension, hyperlipidemia, valvular heart disease
Impression:
#Hypotension - due to sepsis from UTI; other possible sources are skin vs gallbladder vs bowel; also pt is hypoalbuminemic
#UTI - growing E. coli and Proteus
#Sacral decubitus ulcer + right heel ulcer
#Hematoma seen on lateral RLE (?trauma)
#Hypochloremic, hyponatremia (resolved) � likely due to reduced PO intake
#Severe STEFFANIE with uremia (BUN: 103 on admission)
#Left sided renal stones with suspected obstructive uropathy
#Transaminitis
#Acute anemia likely dilutional - s/p 1 U PRBC on 01-17-2024
#Coagulopathy with increased PT/INR & aPTT s/p FFP x1 unit on 01-17-2024
#Constipation
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
#RUE PICC-line associated thrombus
Plan:
- Continue midodrine 5mg TID
- Low threshold to start vasopressors (levophed)
- Administer supplemental albumin 25g 25% to reach level >3g/dL
- No need for 3% NS as serum Na is now WNL
- Goal MAP>65
- Continue broad spectrum Abx (started 01/15) with cefepime + flagyl --> considering most likely source is her UTI, and given negative MRSA swab, I will DC IV vanc
- Check RUQ US to evaluate gallbladder and biliary tree
- Check surveillance blood cultures today; follow-up species of blood culture from 01/16/2024
- Continue wound care to sacral and R-heel ulcer
- Bowel regimen with senna/colace
- Hold amiodarone given she continues to be bradycardic
- Trend sNa levels - avoid overcorrection (<8-10mmol/L in 24 hrs, and <16-18mmol/L in 48 hrs)
- Nephrology consulted - recs appreciated
- Urology consulted given her severe STEFFANIE with suspected obstructive uropathy from stone in left UPJ --> initially there was no surgical intervention required at this time given no hydro seen on CT - however now that pt is bacteremic with (+) urine
Cx, pt may benefit from urological procedure with ureteroscopy to clear debris and place stent to alleviate obstruction - urology recs appreciated
- Trend LFTs
- Maintain SpO2 >90-94%
- prn nebulized bronchodilators
- Replete electrolytes with K>4, Mg>2
- Maintain euglycemia with goal BG 140-180
- Given her RUE thrombus associated with PICC, she should remain anticoagulated with goal INR>2. I gave FFP x 1 unit on 01/17/2024 given her acute drop in Hb - trend INR. When feasible, will change PICC line to opposite arm. No need to remove PICC
at this time given it still flushes and there is good blood return.
- Incentive spirometer encouraged
- DVT ppx - SCDs only for now given coagulopathy with INR>2; hold home Eliquis given her INR is >2; will Tx with FFP given her acute anemia with elevated INR
On 01/15 + 01/16, Dr. Evans discussed the above with the son, Will, in layman's terms to his satisfaction, and answered all of his questions. We discussed code status and goals of care and he believes that she would not want to be put on a
ventilator if her breathing worsened or undergo CPR if her heart were to stop. He needs to speak to the patient's POA which is the patient's sister before any official decision can be made. I asked him to please touch base with us after he has his
conversations that I can update her code status.
Considering patient continues to be bradycardic, is now bacteremic with risk for further clinical deterioration and need for vasopressors, would keep in ICU at least another day, especially depending if she is pending a urological procedure. I
called patient's sister, Linda Xie, and discussed with her the patient's current clinical scenario now with bacteremia, sepsis and her already deconditioned status. We agreed to make the patient DNR/DNI but continue full medical treatment
otherwise including antibiotics, vasopressors if needed, and other cardiac medications. I answered all the patient's sister's questions to her satisfaction.
Critical care statement: A total of 37 minutes of critical care time was provided for this patient today. This includes management of unstable vital signs, evaluation of the patient at bedside, reviewing the patient's pertinent medical records
including radiographs, microbiology, laboratory evaluations, and discussion with primary team, consultants, pharmacy, nutrition, physical therapy, case management, charge nurse, critical care nursing, and respiratory therapy.
Data:
CT Abd/Pelvis without contrast 01-16-2024:
MARKEDLY LIMITED STUDY as a result of several factors.
Gallstones seen within a relative prominent size gallbladder also containing some high attenuation density which could represent sludge.
Markedly limited evaluation of the kidneys, as detailed above with some small nonobstructing left renal calculi as well as calculus and/or calculi at the left ureteropelvic junction with findings suggesting the possibility of accompanying mild
obstructive uropathy. Evaluation for renal space-occupying lesion markedly limited.
No intestinal obstruction. Large volume stool filling the rectum, markedly limited by beam hardening artifact from bilateral hip arthroplasties. Cannot exclude some accompanying perirectal stranding.
Sigmoid diverticulosis.
Right Tibia/Fibula XR/Foot XR 01-16-2024:
Marked diffuse soft tissue swelling about the right foot and right ankle.
Degenerative changes and diffuse osteopenia.
CXR 01-16-2024:
Pulmonary vascularity within the limits of normal.
Right PICC line with tip in distal SVC.
Markedly low lung volumes and elevation of right hemidiaphragm. Some mild bilateral subsegmental atelectasis and/or scarring.
Renal/Bladder US 01-16-2024:
Simple left renal cyst.
Nonobstructing left renal stone.
Incidental moderate gallbladder sludge.
Right Upper Extremity US 01-16-2024: Small nonocclusive thrombus formation in the basilic vein.
Subjective Dataa
Subjective Data
Date of Service:
Date of Service: January 18, 2024
Chief Complaint: Burn Crew Member Follow Up
Subjective:
Patient seen this morning. She remains easily arousable, answering questions appropriately. More alert today. She is on 2 L/min nasal cannula saturating 100%. Heart rate 52 and BP 106/48. Creatinine continuing to improve, blood culture is now
positive with GNR, and E. coli and Proteus is growing in the urine.
Review of Systems
General: Other (Negative unless mentioned above)
Objective Data
Data Reviewed
Vital Signs / I&O / Oxygen:
Vital Signs
Temp Pulse Resp BP Pulse Ox
98 F 51 13 101/45 100
01/18/24 11:01 01/18/24 12:54 01/18/24 12:00 01/18/24 12:54 01/18/24 12:30
Intake and Output
01/17/24 01/18/24 01/19/24
06:59 06:59 06:59
Intake Total 1400 / 1500 1756 / 1856 260 / 260
Output Total 600 / 600 275 / 275 250 / 250
Balance 800 / 900 1481 / 1581 10 / 10
SaO2 100
Nasal Cannula flow liters per 2
minute
Physical Exam
General: Respiratory Distress (negative) and Comfortable
HEENT: Normocephalic and Anicteric
Cardiovascular: Irregular Rhythm, Peripheral Edema (RLE +1 edema, trace LLE edema) and Other (Bradycardic)
Respiratory: Wheeze (Negative), Rhonchi (Negative), Non-Labored Respirations and Other (Coarse breath sounds heard bilaterally)
GI: Soft, Non Distended and Non Tender
Neurology: Awake and Alert
Skin: Warm, Dry and Other (Hemorrhagic bubble seen on lateral RLE; skin breakdown on right heel)
Labs/Micro/Reports
Lab Data
01/18/24 05:27
01/18/24 05:27
Laboratory Results
01/18/24
05:27
PT 26.5 H
INR 2.45
Microbiology
01/16/24 12:24 Blood/Venous Blood Culture - Preliminary
No Growth in 48 hours- Final report to follow
01/16/24 13:38 Blood/Venous Blood Culture - Preliminary
Positive culture in progress
01/16/24 13:38 Blood/Venous Gram Stain - Preliminary
01/16/24 12:03 Urine Urine Culture - Final
Escherichia coli
Proteus mirabilis
01/16/24 19:01 Nose MRSA Screen - Final
No Methicillin Resistant Staphylococcus aureus isolated.
[2024-01-18] MEDS: DAKIN'S SOLUTION 0.25% 1/2 STRENGTH 473 ML TOPICAL (08:04)
[2024-01-18] MEDS: COLACE 100 MG PO (08:04)
[2024-01-18] MEDS: ANTIFUNGAL CLEAR 1 APPLIC TOPICAL ×2 (08:04→19:50)
[2024-01-18] MEDS: PROTONIX IV 40 MG IV ×2 (08:05→19:51)
[2024-01-18] MEDS: TYLENOL 650 MG PO (08:05)
[2024-01-18] MEDS: NSS (PRESERVATIVE FREE) 10 ML IV ×2 (08:05→19:51)
[2024-01-18] MEDS: DESITIN MAXIMUM STRENGTH PASTE 1 APPLIC TOPICAL ×3 (08:05→22:01)
[2024-01-18] MEDS: DESENEX/MITRAZOL/ZEASORB 1 APPLIC TOPICAL ×2 (08:05→17:43)
[2024-01-18] MEDS: ProAmatine 5 MG PO ×3 (08:06→17:44)
[2024-01-18] MEDS: SENOKOT-S 1 TABLET PO (08:06)
--- NOTE | 2024-01-18 08:15 | PHA.VAN.FU ---
Vancomycin Assessment / Plan
- Assessment
Renal Function: SCR Decreasing
WBC's are: Trending Up
In the past 24 hrs, patient has been: Afebrile
Concomitant Antimicrobials: Cefepime, Metronidazole
- Assessment - Therapeutic Drug Monitoring
Random Level: R = 16.1 ~ 17hrs post Vanc 750mg
- Dosing Plan
Continue: Dose by level
Dosing by Level: Hold off on dosing today
- Monitoring Plan
Random Level: 01/18 AM
- Follow Up
Pharmacy will continue to follow.
Vancomycin Follow UP
- -
Patient Age: 83
Patient Sex: Female
Vancomycin Day #: 3
Indication: Skin And Soft Tissue
Requesting Provider: Dr. Evans
Pertinent Antimicrobial Allergies:
cefuroxime - swollen legs and itching
cephalexin - unknown
ciprofloxacin - unknown
nitrofurantoin - unknown
penicillins - unknown
sulfa - unknown
Admission at [facility] 12/16-12/23 pt received cefepime and vancomycin per [facility] records
Height / Weight:
Height 5 ft 2 in
Actual Weight 64 kg
- Vital Signs / Lab Results
Temp Pulse Resp BP Pulse Ox
97.8 F 45 12 100/44 100
01/18/24 07:42 01/18/24 08:06 01/18/24 08:00 01/18/24 08:06 01/18/24 08:00
Lab Results - Hematology
01/16/24 01/17/24 01/18/24
11:31 03:21 05:27
WBC 19.2 H 13.4 H 18.5 H
Lab Results - Chemistry
01/16/24 01/17/24 01/18/24
11:31 03:21 05:27
BUN 103 H* 79 H 66 H
Creatinine 3.0 H 2.0 H 1.6 H
Estimated Creat Clear 17 21
Albumin 2.4 L 2.6 L 2.4 L
01/16/24 01/16/24
11:31 19:10
Lactic Acid 1.7 0.9
Microbiology Results
01/16/24 13:38 Blood Culture - Preliminary
Blood/Venous Positive culture in progress
Gram Stain - Preliminary
01/16/24 12:03 Urine Culture - Preliminary
Urine Gram negative bacilli
01/16/24 12:24 Blood Culture - Preliminary
Blood/Venous No Growth in 24 hours- Final report to follow
Therapeutic Drug Monitoring
Random Vancomycin 16.1 ug/ml 01/18/24 05:27
--- NOTE | 2024-01-18 08:56 | PTCARENOTE ---
Dr Reich update in [facility] this morning. Will follow up plan of cares with hospitalist,, Director Of Reservations and son when he arrives. Will follow up goals of cares with family and continue supportive cares. Assessment updated, vital sign trends ongoing and
as documented. Continue hourly rounds, safety checks, skin care, wound cares and turning protocols. Supportive cares and emotional support ongoing. Patient very resistant of any cares. Yelling at staff to be left alone, Doesn't want to be touched,
legs, sacrum or any further cares. Reorient and redirection provided. Patient remembers some staff and hospital at times, commands throughout then just agitated with staff attempts at cares. Patient stating, 'she doesn't want to live like this.'
Then yelling again to be left alone. Continue supportive cares..
--- NOTE | 2024-01-18 09:21 | W.PN.NEPH.PH ---
Today's Communication / Plan
-
follow BMP
Assessment/Plan
-
Assessment:
Hypotension
Acute kidney injury
Hypomagnesemia
Metabolic acidosis
Azotemia
Hyponatremia
Acute anemia
Lymphedema
Elevated LFTs
nonobstructive left nephrolithiasis
Plan:
Transfusion packed red blood cells prn
Follow basic metabolic profile
follow magnesium
Update echocardiogram
No diuretics currently as she is not in overt failure
currently off IVF, follow po intake
Critical care time spent 31 minutes
-
-
Date of Service: January 18, 2024
CC / HPI / ROS
-
Chief Complaint:
STEFFANIE
History of Present Illness:
critically ill in ICU
STEFFANIE/Cr down to 1.6
Hgb up to 8.7
remain hypotense, with midodrine
abx for GNR bcx/sepsis
bradycardic
Review of Systems:
pain in legs
no CP
Labs
-
Labs:
WBC 18.5 10^3/uL (4.8-10.8) H 01/18/24 05:27
RBC 2.90 10^6/uL (4.20-5.40) L 01/18/24 05:27
Hgb 8.7 g/dL (12.0-16.0) L 01/18/24 05:27
Hct 26.1 % (37.0-47.0) L 01/18/24 05:27
Plt Count 208 10^3/uL (130-400) 01/18/24 05:27
Sodium 136 mmol/L (135-145) 01/18/24 05:27
Potassium 3.7 mmol/L (3.5-5.1) 01/18/24 05:27
Chloride 109 mmol/L (98-107) H 01/18/24 05:27
Carbon Dioxide 22 mmol/L (22-30) 01/18/24 05:27
BUN 66 mg/dl (7-17) H 01/18/24 05:27
Creatinine 1.6 mg/dL (0.6-1.0) H 01/18/24 05:27
eGFR 31.61 01/18/24 05:27
Glucose 77 mg/dl (70-99) 01/18/24 05:27
Calcium 7.9 mg/dl (8.4-10.2) L 01/18/24 05:27
Phosphorus 3.7 mg/dl (2.5-4.5) 01/17/24 03:21
Dev-W-Mrhpatvdzwt Pept 2690 pg/ml 01/16/24 11:31
Albumin 2.4 g/dl (3.5-5.0) L 01/18/24 05:27
Physical Exam
-
Vital Signs:
Vital Signs
Temp Pulse Resp BP Pulse Ox
97.8 F 44 12 94/39 100
01/18/24 07:42 01/18/24 09:00 01/18/24 09:00 01/18/24 09:00 01/18/24 09:00
Cardiovascular:: Regular rate and rhythm (clay)
Respiratory:: Bilateral: Coarse
Lung Excursion:: Normal
Abdomen:: Nontender and Soft
Bowel Sounds:: Normal
Extremity Edema:: +3: Bilateral:
--- NOTE | 2024-01-18 09:22 | PTCARENOTE ---
Dr Marx updated events, previous admissions to other facilities (await records), review vital sign trends and update follow up orders.
--- NOTE | 2024-01-18 09:50 | PTCARENOTE ---
Update with patient son at bedside. Telling son tired of being 'poked and prodded.' Discuss plan of cares, await hospitalist team and Candle Wrapping Machine Operator. Son feels it is time to update patient sister and POA so they can update plan of cares, goals of
cares. Speech at bedside with patient. Awake alert oriented to self some events and plan of cares. Will follow am rounds.
--- NOTE | 2024-01-18 10:46 | PTCARENOTE ---
Hospitalist at bedside with patient and son. Continue follow up plan of cares. VS trends and assessment unchanged and ongoing. Continue follow up cultures and abx as ordered. Teaching and supportive cares ongoing.
[2024-01-18] MEDS: STERILE WATER FOR INJECTION 10 ML IV ×2 (11:33→23:26)
[2024-01-18] MEDS: MAXIPIME 1000 MG IV ×2 (11:33→23:25)
--- NOTE | 2024-01-18 12:18 | PTOTSP ---
Speech Therapy
Swallowing Function: Patient was observed with several bites of ice chips and puree and sips of thin liquids and nectar thick liquids. Patient appeared to tolerate nectar thick liquids and puree as she did not exhibit any overt clinical s/sx of
aspiration. Patient did, of note, demonstrate immediate wet coughing with thin liquids (despite small, single sips trialed). Patient refused additional PO trials at this time.
Given the above, trial of puree solids and nectar thick liquids at this time with consideration of VSE.
Recommendations:
1) Trial of IDDSI Level 4 (puree solids) and mildly (nectar) thick liquids
2) Aspiration precautions
3) Assistance and supervision with PO
4) Medications as tolerated
5) VSE
Plan: INTELLECTUAL PROPERTY LEGAL ASSISTANT will continue to follow; pending hospitalization.
--- NOTE | 2024-01-18 12:29 | W.PN.HOSP.TC ---
Addendum entered and electronically signed by Boris Mckeon MD 01/18/24 13:44:
Called sister (EMILIE); left voicemail
Original Note:
Today's Communication/Plan
-
Monitor vitals closely plan
Continue with antibiotic
Follow cultures
Check new sets of blood culture
Monitor hemoglobin
pureed diet with nectar thick
monitor LFT's
monitor renal function
Assessment / Plan
Assessment / Plan
General: Appears Chronically Ill
HEENT: NormoCephalic
Respiratory: Clear
Cardiac: S1/S2 and Regular Rhythm
GI: Soft, Non Tender and Distended
Musculoskeletal: Edema, Right Upper Extremity, Edema, Left Lower Extremity, Edema, Right Lower Extremity and Other (ulcer on right posterior heel, ulcer on sacrum)
Skin: Dry and IV/Catheter Site (PICC line right upper extremity)
Neuro: Awake, Alert and Oriented
Psych: Calm
Severe Sepsis likley multifactorial from cellulitis and UTI
E. coli in urine
Blood culture 01/15 positive with gram-negative bacilli. Repeat blood culture today
cw abx
midodrine
pressors if needed
-US right upper extremity ordered due to swelling where PICC line location; Small nonocclusive thrombus formation in the basilic vein. would need to switch PICC line to alternate arm when able. Currently no need for anticoagulation as INR is
therapeutic and patient had low hemoglobin
-Lactic acid normal
-CT Abd/pelvis showed Large volume stool filling the rectum, Sigmoid diverticulosis.
laxatives
elevated procal
speech eval with pureed with NTL
CT with left renal calculus debris within the collecting system and renal pelvis, no definite hydro. urology will see if can do stent with debri removal if family is interested.
Request records from [facility]
STEFFANIE suspect 2/2 hypotension and anemia
monitor with blood transfusion
Monitor urine output
Cr now 1.6
Acute anemia
Add PPI
Does not appear to be bleeding
Transfuse and monitor; now hgb 8.7.. If continues to be stable then Eliquis can be added
hold elqiuis
systolic murmur; not sure if new
echo
#Hyponatremia
resolved
Mild TME on admission
Improving
#Bilateral LL edema/Ulcer on right posterior heel
Seen by podiatry and they do not think right heel wound is a source of infection.
-Tibia/fibula xray showed Marked diffuse soft tissue swelling about the right foot and right ankle, Degenerative changes and diffuse osteopenia.
Transaminitis
Likely secondary to sepsis
Monitor
stage 3 sacral dequb
monitor
wound care
Bilateral lower extremity lymphedema
monitor
#CHF
unknown EF; does not appear to be in exacerbation
-Hold current hypertensive medications (spironolactone, furosemide)
-proBNP is 2690
-Monitor I&Os, monitor daily weights
-Monitor telemetry
#Paroxysmal atrial fibrillation
-hold amiodarone; with clay at times
-Hold metoprolol succinate and Eliquis
-Monitor telemetry
Elevated TSH and free t4
check levels again after infection is resolved
Full code
DVT: SCD's; hold chemical 2/2 anemia
Code: Full
I spent a total of 53 minutes with the patient or on the floor. More than 50% of this time involved counseling and coordination of care.
Anticipated Discharge: > 48 hours
Subjective/Interval History
-
Date of Service: January 18, 2024
denies nausea
Objective Data
-
Labs:
Laboratory Results
01/18/24
05:27
WBC 18.5 H
Hgb 8.7 L
Hct 26.1 L
Plt Count 208
PT 26.5 H
INR 2.45
Sodium 136
Potassium 3.7
Chloride 109 H
Carbon Dioxide 22
BUN 66 H
Creatinine 1.6 H
Glucose 77
Calcium 7.9 L
Total Bilirubin 1.8 H
AST 109 H
ALT 56 H
Alkaline Phosphatase 104
Vital Signs:
Vital Signs
Temp Pulse Resp BP Pulse Ox
98 F 52 18 114/78 100
01/18/24 11:01 01/18/24 10:30 01/18/24 10:30 01/18/24 10:00 01/18/24 10:30
I&O
01/17/24 01/18/24 01/19/24
06:59 06:59 06:59
Intake Total 1400 / 1500 1756 / 1856 100 / 100
Output Total 600 / 600 275 / 275 250 / 250
Balance 800 / 900 1481 / 1581 -150 / -150
[2024-01-18] MEDS: COLACE PO (19:51)
[2024-01-18] MEDS: SENOKOT-S PO (19:51)
--- NOTE | 2024-01-18 20:00 | PTCARENOTE ---
Rec'd pt resting in bed, disoriented to place/ time, oriented to self, pt yells when turned, very weak, forgetful, SR/ SB, bp stable, doppler distal pulses, + edema, denies CP, O2 2 liters nc, lungs dec, sat 99, hypo bowel sounds, abd obese, soft,
no n/v, purewick in place, was inc lg amt foul smelling sunny urine/ bld tinged; DtrReyes romano called & updated on pt status, pt then spoke to her dtr
--- NOTE | 2024-01-18 23:31 | PTCARENOTE ---
sys reviewed, pt refuses to be turning, yelling ' i don't want to be turned', explained to pt the need to turn due to bed sores but pt still refused
[2024-01-19] VITALS (25 sets, daily range): BP systolic 85–119; BP diastolic 39–97; BMI 25.6
[2024-01-19] MEDS: FLAGYL 500 MG 100 IV ×3 (03:15→19:48)
[2024-01-19 03:26] LABS: % Basophils 0.2 % (0-2); % Immature Granulocytes 3.1 % (0-0.5); % Lymphocytes 4.6 % (20.5-51.1); % Monocytes 3.8 % (1.7-9.3); % Neutrophils 88.3 % (42.2-75.2); Absolute Immature Granulocytes 0.5 10^3/uL (0-0.05); Absolute Lymphocytes 0.8 10^3/uL (1.2-3.4); Absolute Monocytes 0.6 10^3/uL (0.1-0.6); Absolute Neutrophils 15.1 10^3/uL (1.4-6.5); Hematocrit 26.7 % (37.0-47.0); Hemoglobin 8.6 g/dL (12.0-16.0); Mean Corp Hgb Conc. 32.2 g/dL (33.0-37.0); Mean Corpuscular Hgb 29.3 pg (27.0-31.0); Mean Corpuscular Volume 90.8 fL (81.0-99.0); Mean Platelet Volume 9.3 fL (7.4-10.4); Nucleated Red Blood Cells % 0 %; Platelet Count 192 10^3/uL (130-400); Red Blood Cell Count 2.94 10^6/uL (4.20-5.40); White Blood Cell Count 17.1 10^3/uL (4.8-10.8)
[2024-01-19] MEDS: DILAUDID 0.5 MG IV ×3 (03:33→12:03)
--- NOTE | 2024-01-19 03:35 | PTCARENOTE ---
sys reviewed, Dilaudid 0.5 mg iv given before care, CHG bath done, linens changed, Screaming 'I want to , I can't take the pain', urine bloody- Sergo Lewis, ASIA aware
[2024-01-19 03:36] LABS: INR 2.08; PT 23.2 Sec (11.4-14.6)
[2024-01-19 03:43] LABS: ALT (SGPT) 58 U/L (0-35); AST (SGOT) 124 U/L (14-36); Albumin 2.3 g/dl (3.5-5.0); Alkaline Phosphatase 115 U/L (38-126); Blood Urea Nitrogen 60 mg/dl (7-17); Calcium 8.2 mg/dl (8.4-10.2); Carbon Dioxide 21 mmol/L (22-30); Chloride 113 mmol/L (98-107); Estimated Creatinine Clearance 24 ml/min; Glucose 78 mg/dl (70-99); Magnesium 1.8 mg/dl (1.6-2.3); Phosphorus 3.2 mg/dl (2.5-4.5); Potassium 3.6 mmol/L (3.5-5.1); Sodium 140 mmol/L (135-145); Total Bilirubin 1.7 mg/dl (0.2-1.3); Total Protein 4.7 g/dl (6.3-8.2)
--- NOTE | 2024-01-19 07:37 | W.PN.URO.CBU ---
Today's Communication / Plan
-
will sign off but remain available
Assessment / Plan
-
Overall clinically improved
with E. coli in urine and presumably chronically infected material in left kidney's collecting system, possible causing partial obstruction, ureteroscopy to clear debris and to place stent to alleviate obstruction MIGHT be beneficial; her staunch
opposition to intervention currently precludes consideration; DNI status obviates intubation requisite for surgical intervention.
Diagnosis
-
Date of Service: January 19, 2024
-
Patient Diagnosis:
Sepsis
E coli UTI
Left renal pelvis and collecting system: calcareous material
DNR/DNI
Subjective
-
'don't touch me . . . I don't want you to do anything to me'
Objective
-
Vital Signs
Temp Pulse Resp BP Pulse Ox
98.8 F 60 19 104/56 100
01/19/24 07:05 01/19/24 06:01 01/19/24 06:01 01/19/24 06:01 01/19/24 06:01
Intake and Output
01/18/24 01/19/24 01/20/24
06:59 06:59 06:59
Intake Total 1756 / 1856 520 / 520
Output Total 275 / 275 450 / 450
Balance 1481 / 1581 70 / 70
Intake:
Oral fluids 260 / 260 120 / 120
IV piggybacks 550 / 650 400 / 400
Blood Products 475 / 475
Fresh frozen plasma 225 / 225
Packed red blood cells 250 / 250
Blood Product Amount Infused ( 471 / 471
mL)
Ffp24 Divided Unit Part 1 Unit 221 / 221
[id number]
Packed Rbc Leukoreduced Unit 250 / 250
[id number]
Output:
Urine, Moraes 200 / 200
Urine, Voided 275 / 275 250 / 250
Other:
Transfused during hemodialysis?
Ffp24 Divided Unit Part 1 Unit Yes
[id number]
Number of approximated LARGE 1
amounts of urine
How many times incontinent 1
SMALL amount urine
How many times incontinent 1
MODERATE amount urine
How many times incontinent 1 1
SATURATED amount urine
Laboratory Results
01/19/24 03:14
01/19/24 03:14
Physical Exam
-
General - elderly female who appears chronically ill and confused
[2024-01-19] MEDS: PROTONIX IV 40 MG IV ×2 (08:07→19:51)
[2024-01-19] MEDS: NSS (PRESERVATIVE FREE) 10 ML IV ×2 (08:07→19:51)
[2024-01-19] MEDS: ProAmatine 5 MG PO ×3 (08:07→17:50)
[2024-01-19] MEDS: ANTIFUNGAL CLEAR 1 APPLIC TOPICAL ×2 (08:09→19:51)
[2024-01-19] MEDS: DESENEX/MITRAZOL/ZEASORB 1 APPLIC TOPICAL ×2 (08:10→19:51)
[2024-01-19] MEDS: DESITIN MAXIMUM STRENGTH PASTE 1 APPLIC TOPICAL ×3 (08:10→19:52)
--- NOTE | 2024-01-19 09:30 | PTCARENOTE ---
received in bed. On 2L via nasal canula. pt disoriented. Non-verbal pain level 03/31 general. Lymphedema chronic to RT UE and RT LE. pt repeated multiple times that ' I had enough, I want to ' PICC line flushed left AC flushed. Dilaudid given for
pain
--- NOTE | 2024-01-19 10:37 | W.PN.NEPH.PH ---
Today's Communication / Plan
-
observe, labs in am
Assessment/Plan
-
Assessment:
Hypotension
Acute kidney injury
Hypomagnesemia
Metabolic acidosis
Azotemia
Hyponatremia
Acute anemia
Lymphedema
Elevated LFTs
nonobstructive left nephrolithiasis
Plan:
STEFFANIE-cr improving and barely non oliguric
chr lymphedema
no diuretics at this time
encourage po intake
Update echocardiogram
hb stable
LFTs high, US GB sludge
follow labs
d/w nursing and pt
-
-
Date of Service: January 19, 2024
CC / HPI / ROS
-
Chief Complaint:
STEFFANIE
History of Present Illness:
critically ill in ICU
STEFFANIE/Cr down to 1.4
Hgb stable at 8.6
bp soft on midodrine
abx for GNR bcx/sepsis
bradycardic
Review of Systems:
pain in legs
no CP
no n/v
intermittent confusion
Labs
-
Labs:
WBC 17.1 10^3/uL (4.8-10.8) H 01/19/24 03:14
RBC 2.94 10^6/uL (4.20-5.40) L 01/19/24 03:14
Hgb 8.6 g/dL (12.0-16.0) L 01/19/24 03:14
Hct 26.7 % (37.0-47.0) L 01/19/24 03:14
Plt Count 192 10^3/uL (130-400) 01/19/24 03:14
Sodium 140 mmol/L (135-145) 01/19/24 03:14
Potassium 3.6 mmol/L (3.5-5.1) 01/19/24 03:14
Chloride 113 mmol/L (98-107) H 01/19/24 03:14
Carbon Dioxide 21 mmol/L (22-30) L 01/19/24 03:14
BUN 60 mg/dl (7-17) H 01/19/24 03:14
Creatinine 1.4 mg/dL (0.6-1.0) H 01/19/24 03:14
eGFR 37.10 01/19/24 03:14
Glucose 78 mg/dl (70-99) 01/19/24 03:14
Calcium 8.2 mg/dl (8.4-10.2) L 01/19/24 03:14
Phosphorus 3.2 mg/dl (2.5-4.5) 01/19/24 03:14
Zrx-A-Gwqapkbkofh Pept 2690 pg/ml 01/16/24 11:31
Albumin 2.3 g/dl (3.5-5.0) L 01/19/24 03:14
Physical Exam
-
Vital Signs:
Vital Signs
Temp Pulse Resp BP Pulse Ox
98.8 F 60 18 103/44 88
01/19/24 07:05 01/19/24 09:00 01/19/24 09:00 01/19/24 09:00 01/19/24 09:00
Cardiovascular:: Regular rate and rhythm
Respiratory:: Bilateral: CTA (decreased)
Lung Excursion:: Normal
Abdomen:: Nontender and Soft
Extremity Edema:: +2: Bilateral:
Moraes Catheter: No
--- NOTE | 2024-01-19 11:30 | W.PN.INTV ---
Today's Communication / Plan
Recommendations
Continue current antibiotic therapy
Follow final cultures
Follow renal function
Discussed with primary service, Dr. Rivera, he will discuss with Dr. Reich regarding possible procedures the patient has possible clot in the bladder.
Continue to hold anticoagulation
Follow H&H
Assessment
-
Assessment: 83-year-old female with a past medical history of A-fib on Eliquis, history of CHF, macular degeneration, hypertension, hyperlipidemia, valvular heart disease, personal history of COVID-19, dementia, chronic lymphedema, and anemia who
presents from [facility] for bilateral lower extremity swelling as well as right upper extremity swelling. Patient has a RUE PICC line and there was concern for possible infiltration. Vitals initially in the ER showed she was afebrile to 98
�F, pulse rate: 61, respiratory rate: 20, and SpO2 100% on room air. Initial labs showed leukocytosis to 19.2, anemia 9.3, hyponatremia to 122, creatinine of 3, BUN of 103, CRP 71, procalcitonin 1.05, TSH of 5.91, and positive urinalysis suggestive
of UTI - urine cultures/blood cultures were collected. CXR showed low lung volumes with right hemidiaphragm elevation with mild bilateral subsegmental atelectasis/scarring. Patient also had a right tibia/fibula & foot x-ray showing marked diffuse
soft tissue swelling about the right foot and right ankle with diffuse osteopenia. CT abdomen/pelvis also obtained showing gallstones with enlarged gallbladder and sludge. Also left nonobstructing renal calculi as well as calculi at the left UPJ
with suggested mild obstructive uropathy. There also was large volume stool filling the rectum with sigmoid diverticulosis. Patient given antibiotics with aztreonam, vancomycin as well as IV fluids with total of 3L NS 0.9%. Considering patient
remains hypotensive with SBP in the 80s�90s range despite IV fluids, patient was admitted to the ICU for further care. Critical care services now consulted for additional management/recommendations.
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
osteoarthritis, CKD, history of CHF, hypertension, hyperlipidemia, valvular heart disease
Impression:
#Hypotension - due to sepsis from UTI; other possible sources are skin vs gallbladder vs bowel; also pt is hypoalbuminemic
#UTI - growing E. coli and Proteus
#Sacral decubitus ulcer + right heel ulcer
#Hematoma seen on lateral RLE (?trauma)
#Hypochloremic, hyponatremia (resolved) � likely due to reduced PO intake
#Severe STEFFANIE with uremia (BUN: 103 on admission)
#Left sided renal stones with suspected obstructive uropathy
#Transaminitis
#Acute anemia likely dilutional - s/p 1 U PRBC on 01-17-2024
#Coagulopathy with increased PT/INR & aPTT s/p FFP x1 unit on 01-17-2024
#Constipation
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
#RUE PICC-line associated thrombus
Plan:
Has not required vasopressors.
Hemodynamically stable this morning.
Feels better compared to admission.
Continue midodrine 5mg TID
-
Gram-negative UTI with bacteremia: E. coli/Proteus urine culture.
Gram-negative Anaerobic jim blood culture 01/16/2024.?
Repeat Blood cultures negative.
Continue cefepime/Flagyl for now. Wait for identification.
Vancomycin has been discontinued
Right upper quadrant ultrasound without acute abnormality
Kidney ultrasound without significant hydronephrosis.
-
Wound care consulted for pressure ulcers.
- Continue wound care to sacral and R-heel ulcer
- Bowel regimen with senna/colace
-
Continue to hold amiodarone given she continues to be bradycardic.
Not hypotensive.
Anticoagulation on hold due to hematuria and anemia.
Status post 1 unit of packed red blood cells. Hemoglobin 8.6 01/19/2024.
-
Acute kidney injury: Improving.
Patient does have chronic lymphedema.
Sodium normal.
Echocardiogram to be updated
Follow renal function electrolytes
Nephrology following patient.
-
Hematuria noted: Urology following.
Continue to hold anticoagulation
Urology consulted given her severe STEFFANIE with suspected obstructive uropathy from stone in left UPJ --> pt may benefit from urological procedure with ureteroscopy to clear debris and place stent to alleviate obstruction - urology recs appreciated, Pt
not interested in AM.
Bladder scanned 700cc, with clots. May need to rediscuss procedure.
-
- Maintain SpO2 >90-94%
- prn nebulized bronchodilators
- Replete electrolytes with K>4, Mg>2
- Maintain euglycemia with goal BG 140-180
- Given her RUE thrombus associated with PICC, she should remain anticoagulated upon dc.
s/p FFP x 1 unit on 01/17/2024 given her acute drop in Hb - trend INR.
When feasible, will change PICC line to opposite arm. No need to remove PICC at this time given it still flushes and there is good blood return.
-
Incentive spirometer encouraged
DVT ppx - SCDs only for now given coagulopathy eventually restart Eliquis.
-
On 01/15 + 01/16, Dr. Evans discussed the above with the son, Will, in layman's terms to his satisfaction, and answered all of his questions. We discussed code status and goals of care and he believes that she would not want to be put on a
ventilator if her breathing worsened or undergo CPR if her heart were to stop. He needs to speak to the patient's POA which is the patient's sister before any official decision can be made. I asked him to please touch base with us after he has his
conversations that I can update her code status.
-
patient DNR/DNI but continue full medical treatment otherwise including antibiotics, vasopressors if needed, and other cardiac medications. I answered all the patient's sister's questions to her satisfaction by Dr. Evans.
-
Maintain ICU level until final decision regarding procedure.

Data:
CT Abd/Pelvis without contrast 01-16-2024:
MARKEDLY LIMITED STUDY as a result of several factors.
Gallstones seen within a relative prominent size gallbladder also containing some high attenuation density which could represent sludge.
Markedly limited evaluation of the kidneys, as detailed above with some small nonobstructing left renal calculi as well as calculus and/or calculi at the left ureteropelvic junction with findings suggesting the possibility of accompanying mild
obstructive uropathy. Evaluation for renal space-occupying lesion markedly limited.
No intestinal obstruction. Large volume stool filling the rectum, markedly limited by beam hardening artifact from bilateral hip arthroplasties. Cannot exclude some accompanying perirectal stranding.
Sigmoid diverticulosis.
Right Tibia/Fibula XR/Foot XR 01-16-2024:
Marked diffuse soft tissue swelling about the right foot and right ankle.
Degenerative changes and diffuse osteopenia.
CXR 01-16-2024:
Pulmonary vascularity within the limits of normal.
Right PICC line with tip in distal SVC.
Markedly low lung volumes and elevation of right hemidiaphragm. Some mild bilateral subsegmental atelectasis and/or scarring.
Renal/Bladder US 01-16-2024:
Simple left renal cyst.
Nonobstructing left renal stone.
Incidental moderate gallbladder sludge.
Right Upper Extremity US 01-16-2024: Small nonocclusive thrombus formation in the basilic vein.
Subjective Dataa
Subjective Data
Date of Service:
Date of Service: January 19, 2024
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
Subjective:
Off vasopressors this morning
Denies abdominal pain nausea or vomiting.
Afebrile
Review of Systems
Cardiopulmonary: Dyspnea (n)
GI: Abdominal Pain (n) and Nausea (n)
Neuro: Headache (n)
Objective Data
Data Reviewed
Vital Signs / I&O / Oxygen:
Vital Signs
Temp Pulse Resp BP Pulse Ox
97.8 F 60 18 103/44 88
01/19/24 11:27 01/19/24 09:00 01/19/24 09:00 01/19/24 09:00 01/19/24 09:00
Intake and Output
01/18/24 01/19/24 01/20/24
06:59 06:59 06:59
Intake Total 1756 / 1856 520 / 520
Output Total 275 / 275 450 / 450 300 / 300
Balance 1481 / 1581 70 / 70 -300 / -300
SaO2 88
Nasal Cannula flow liters per 2
minute
Physical Exam
General: Respiratory Distress (negative) and Comfortable
HEENT: Normocephalic and Anicteric
Cardiovascular: Irregular Rhythm, Peripheral Edema (RLE +1 edema, trace LLE edema) and Other (Bradycardic)
Respiratory: Wheeze (Negative), Rhonchi (Negative), Non-Labored Respirations and Other (Coarse breath sounds heard bilaterally)
GI: Soft, Non Distended and Non Tender
Neurology: Awake and Alert
Skin: Warm, Dry and Other (Hemorrhagic bubble seen on lateral RLE; skin breakdown on right heel)
Labs/Micro/Reports
Lab Data
01/19/24 03:14
01/19/24 03:14
Laboratory Results
01/19/24
03:14
PT 23.2 H
INR 2.08
Microbiology
01/18/24 09:45 Blood/Venous Blood Culture - Preliminary
No Growth in 24 hours- Final report to follow
01/16/24 13:38 Blood/Venous Blood Culture - Preliminary
Anaerobic gram neg bacilli
01/16/24 13:38 Blood/Venous Gram Stain - Preliminary
01/18/24 09:13 Blood/Venous Blood Culture - Preliminary
No Growth in 24 hours- Final report to follow
01/16/24 12:24 Blood/Venous Blood Culture - Preliminary
No Growth in 48 hours- Final report to follow
01/16/24 12:03 Urine Urine Culture - Final
Escherichia coli
Proteus mirabilis
01/16/24 19:01 Nose MRSA Screen - Final
No Methicillin Resistant Staphylococcus aureus isolated.
--- NOTE | 2024-01-19 12:24 | WOUNDNOTE ---
R CALF (UPPER MEDIAL)
--- NOTE | 2024-01-19 12:26 | WOUNDNOTE ---
SACRUM (with photo flash)
[2024-01-19] MEDS: STERILE WATER FOR INJECTION 10 ML IV ×2 (12:28→23:38)
[2024-01-19] MEDS: MAXIPIME 1000 MG IV ×2 (12:28→23:37)
--- NOTE | 2024-01-19 12:28 | WOUNDNOTE ---
R CALF (POSTERIOR LOWER)
[2024-01-19] MEDS: DAKIN'S SOLUTION 0.25% 1/2 STRENGTH 473 ML TOPICAL (12:29)
--- NOTE | 2024-01-19 12:45 | WOUNDNOTE ---
WO RN note: Patient seen about 12:30pm. Patient admitted with sepsis, STEFFANIE, a fib, severe RLE and back pain. Patient admitted from [facility].
See H&P for complete history.
PMH: at [facility] earlier this month, a fib (Eliquis), CHF, sacral ulcer, CKD.
Wound Location and type/assessment: Patient admitted with: necrotic stage 4 sacral pressure injury. L posterior calf full thickness to subcutaneous layer, pink wound suspect r/t trauma and lymphedema. L lower posterior calf linear skin tear with
steri strips covering. R upper medial calf full thickness skin tear to subcutaneous layer. R posterior heel suspect stage 3 pressure injury with yellow fibrin cover. R plantar heel dry black ecchymotic ulcer. R lateral upper calf hematoma (see photo
from 01/16/24 wound note from ED RN) +LE edema (R>L). Pedal pulses heard via portable Doppler.
Appetite: on IDDIS4-pureed diet.
Pressure redistribution devices in place: [employer] air bed. Patient assists some with turning. Patient appears very anxious with any intervention.
Plan: BINA Thomas inserted a Moraes catheter. Assisted with positioning patient. Dr. Rivera was early in visit who approved local wound care and LE venous Doppler to r/t DVT and if negative, knee high Warren or Tubigrip may be initiated. Sacral
dressing, R upper medial calf and L posterior calf dressings changed. Heels off bed with air chair cushions. Patient turned to R semi side lying position with help from BINA Thomas. [place] texted Dr. Rivera sacral ulcer photo; defer to hospitalist if
general surgery consult indicated for debridement and if sacral X-ray indicated to r/o OM.
Care plan to be updated and will follow as needed.
Note to case management of equipment requested for discharge: Air mattress at SNF.
Recommend follow up at wound care center upon discharge.
--- NOTE | 2024-01-19 12:58 | PTCARENOTE ---
1200 Earlier today pt voided, urine drained via purwick catheter bloody urine, no blood clots noted. At 12:00 pt had no urinal output, bladder scanned for >600. Per Dr Rivera Indwelling catheter inserted due to bladder obstruction, urinal output
post insertion 600 cc of bloody urine. All wound care done by wound care nurse. pt clearly stating that she does not want her daughterGinger to be her POA. pt requesting her sister and son to be decision maker in her care. pt reposition and prep via
pillows , B/L feet elevated via air cushions . RT PICC line SL flushed dressing intact . Maxipine and KVO infusing. Left Arm large bruise noted. left aC # 22 pink color around, flushed capped HOB elevated call ponce with reach. Encouraged PO intact.
5 % lunch consumption
--- NOTE | 2024-01-19 13:35 | W.PN.HOSP.TC ---
Addendum entered and electronically signed by Héctor Rivera MD 01/19/24 16:00:
Patient seen and examined
Discussed with resident
Discussed with visual inspector urology, nursing, patient's daughter over the phone
Impression/plan:
Sepsis with hypotension/hypotensive shock responding to IV fluid bolus and transfusion transition to midodrine.
Complicated UTI with left ureteral obstruction possibly secondary to nephrolithiasis versus debris, left hydronephrosis. Gross hematuria with acute urinary retention requiring Moraes catheter placement on 01/18.
Discussed with urology. Will continue Moraes catheter monitoring for worsening of hematuria and clot retention. Plan is for cystoscopy tentatively on 01/20
Urine culture with E. coli and Proteus. Continue with cefepime. Blood culture with anaerobic gram-negative bacilli pending edification. Possibly contaminant. Flagyl added.
Sacral wound stage III-IV? Osteomyelitis. Noted necrotic eschar. Will consult general surgery for debridement.
Acute kidney injury secondary to hypotension and likely with retention component.. Creatinine proved from 3.0-1.4. Avoid further hypotension. Continue midodrine. Continue Moraes catheter.
Hyponatremia improved with volume repletion.
CHF unknown EF.
Echocardiogram is pending
Paroxysmal atrial fibrillation.
Continue continue holding metoprolol due to hypotension.
Amiodarone had been on hold due to mild bradycardia. Currently improved. Resume amiodarone and monitor closely.
Bilateral lower extremity edema, chronic with lymphedema. Check ultrasound rule out DVT
Acute on chronic anemia likely combination of dilution, iron deficiency, acute hematuria. Appropriate response to red blood cell transfusion with hemoglobin improved from 6-8. Continue monitoring. Hold Eliquis for now monitor hematuria as well as
possibly required surgical intervention including cystoscopy and sacral wound debridement.
Transaminitis likely secondary to hypotension. Monitor. Clinically and radiologically with no evidence of acute cholecystitis.
Right upper extremity picc with line associated thrombus. Monitor closely.
Original Note:
Today's Communication/Plan
-
Gen surgery consult for sacral ulcer wound debridement
Moraes inserted
Bilateral U/S of lower extremities
Urology consult for cystoscopy/stent placement
Assessment / Plan
Assessment / Plan
IMPRESSION: This is a 83-year-old female patient with PMH of atrial fibrillation on Eliquis, CHF, HTN, anemia, hyperlipidemia, and CKD presenting to the ED with PICC line in right upper extremity for hypotension and bilateral lower extremity edema.
PLAN:
#Severe Sepsis (likely multifactorial from cellulitis and UTI)
-E. coli in urine
-Blood culture 01/15 positive with gram-negative bacilli. Repeat blood culture pending
-Continue midodrine
-pressors (levophed) if needed
-US right upper extremity ordered due to swelling where PICC line location; Small nonocclusive thrombus formation in the basilic vein.
-Lactic acid normal
-CT Abd/pelvis showed Large volume stool filling the rectum, Sigmoid diverticulosis.
-Continue bowel regimen
-elevated procal
-speech eval:
-CT with left renal calculus debris within the collecting system and renal pelvis, no definite hydronephrosis
-Urology consulted for cystoscopy and stent placement
-follow cbc, bmp in AM
#STEFFANIE
-Monitor urine output
-Cr now 1.4
-Moraes inserted today
-monitor bmp in AM
#Acute anemia
-continue PPI
-Transfused on 01/16
-HB today is 8.6
-monitor cbc
-hold eliquis for cystoscopy/stent placement by urology
#?New systolic murmur
-echo pending
#Mild TME on admission
-Improving
-patient is oriented today
#Bilateral LL edema/Ulcer on right posterior heel
-Seen by podiatry and they do not think right heel wound is a source of infection.
-Tibia/fibula xray showed Marked diffuse soft tissue swelling about the right foot and right ankle, Degenerative changes and diffuse osteopenia.
#Transaminitis
-Likely secondary to sepsis
-Monitor cmp in AM
#stage 3 sacral decubitus ulcer
-monitor
-wound care
-gen surgery consulted for wound debridement
#Bilateral lower extremity lymphedema
-ordered U/S for B/L lower extremities
-monitor
#CHF
-unknown EF; does not appear to be in exacerbation
-Hold current hypertensive medications (spironolactone, furosemide)
-proBNP is 2690
-Monitor I&Os, monitor daily weights
-Monitor telemetry
-echo pending
#Paroxysmal atrial fibrillation
-hold amiodarone; with clay at times
-Hold metoprolol succinate and Eliquis
-Monitor telemetry
#Elevated TSH and free t4
-check levels again after infection is resolved
DVT: SCD's
Code: DNR
Anticipated Discharge: > 48 hours
Subjective/Interval History
-
Date of Service: January 19, 2024
Objective Data
-
Labs:
Laboratory Results
01/19/24
03:14
WBC 17.1 H
Hgb 8.6 L
Hct 26.7 L
Plt Count 192
PT 23.2 H
INR 2.08
Sodium 140
Potassium 3.6
Chloride 113 H
Carbon Dioxide 21 L
BUN 60 H
Creatinine 1.4 H
Glucose 78
Calcium 8.2 L
Total Bilirubin 1.7 H
AST 124 H
ALT 58 H
Alkaline Phosphatase 115
Vital Signs:
Vital Signs
Temp Pulse Resp BP Pulse Ox
97.8 F 75 28 110/97 98
01/19/24 11:27 01/19/24 12:00 01/19/24 12:00 01/19/24 11:00 01/19/24 12:00
I&O
01/18/24 01/19/24 01/20/24
06:59 06:59 06:59
Intake Total 1756 / 1856 520 / 520
Output Total 275 / 275 450 / 450 300 / 300
Balance 1481 / 1581 70 / 70 -300 / -300
Review of Systems
-
History Source: Patient
All other systems: Reviewed and negative
Physical Exam
-
General: No Apparent Distress and Appears Chronically Ill
HEENT: Normocephalic
Respiratory: Clear to Auscultation
Cardiac: Regular Rhythm, S1/S2 and Murmur (systolic murmur)
GI: Soft, Nontender and Distended (distend lower abdomen; distended bladder)
Musculoskeletal: Edema, Right Lower Extrem and Edema, Left Lower Extrem
Skin: Decubitus Ulcers (sacral)
Neuro: Awake, Alert and Oriented
Psych: Calm
--- NOTE | 2024-01-19 14:43 | CON.GS ---
Addendum entered and electronically signed by Trevin Rosales MD 01/19/24 17:31:
I saw and examined the patient independently.
The Yard Associate's note was reviewed and I agree with the note, assessment and plan except where noted below.
Comment: This is a 83-year-old female with a history of dementia, A-fib, subdural hematoma, right hemiparesis, chronic lymphedema and known sacral decubitus ulcer seen today in the ICU for sepsis. She was noted to have a unstageable sacral
decubitus ulcer. I did review her CT scan which demonstrates tracking to the level of the bone concerning for underlying osteomyelitis. The patient is very pleasant, her dementia is clearly evident and requires redirection often. Ultimately it
sounds like she does not want any further surgical procedures but would like to discuss with her family who are coming in tomorrow before making final decision which I think is reasonable. She did not allow us to examine her today but I did review
her images in the wound care notes.
No acute general surgery intervention warranted.
Okay for IV antibiotics for now.
Please establish goals of care with family tomorrow, surgery would likely involve multiple debridements as well as prolonged course of antibiotics and a chronic wound that given her comorbidities would take significant time to heal.
All questions answered, will rediscuss options with patient and family tomorrow.
General surgery will follow for now.
I spent roughly 60 minutes in total for the care of this patient today including direct patient care and counseling, reviewing labs, imaging, coordination of care, as well as documentation.
Original Note:
Consultation
-
Date/Time Consultation Requested: 01/19/24 1257
Requesting Provider: Talia Gillespie
Reason for Consultation: wound
Medical History
-
Chief Complaint: sacral pain
History of Present Illness:
Ms Kan is an 83 yo female with a history of dementia, afib (Eliquis held on admission), subdural hematoma with right hemiparesis, chronic lymphedema, HTN and known sacral decub seen today in the ICU where she is being treated for sepsis and on
antibiotics for UTI. She also has a noted an unstageable sacral decub the majority of which is covered with eschar tissue. She notes pain from this wound. She is unclear how long it has been present but notes that the staff at [facility] noted it
during her recent admission there and she has undergone multiple treatments with creams etc. She is unsure if she has ever had a debridement. She is also being followed by podiatry for a right heel wound as well. She declined exam during my visit,
fortunately, wound care has taken photos of the wound which I was able to review.
Past Medical History
Past Medical History: Arrhythmias (afib on Eliquis), CHF, CVA (Subdural hematoma with right hemiparesis), HTN, Hypercholesterolemia and Other (Dementia, chronic lymphedema, sacral ulcer)
Past Surgical History: and Orthopedic (BL THR, R TKR, Left ankle )
Social History
Tobacco: Non-Smoker
Alcohol: None
Family History
Family History: Reviewed & Not Pertinent
Allergies / Home Medications
Allergy/AdvReac Type Severity Reaction Status Date / Time
cefuroxime Allergy Swollen Verified 01/16/24 20:09
legs and
itching
cephalexin Allergy Unknown Verified 01/16/24 20:09
cetirizine Allergy Unknown Verified 01/16/24 11:07
ciprofloxacin [From Cipro] Allergy Unknown Verified 01/16/24 11:07
methenamine Allergy Unknown Verified 01/16/24 11:07
mirabegron Allergy Unknown Verified 01/16/24 11:07
nitrofurantoin Allergy Unknown Verified 01/16/24 11:07
Penicillins Allergy Unknown Verified 01/16/24 20:09
Sulfa (Sulfonamide Allergy Unknown Verified 01/16/24 11:07
Antibiotics)
�Medication �Instructions �Recorded �Confirmed �Type
Dextrose 5%/Electrolyte #48 1 dose IV .EVERY SHIFT 01/16/24 01/16/24 History
Zinc Oxide Paste 1 applic topical TID left buttock 01/16/24 01/16/24 History
acetaminophen 325 mg tablet 650 mg PO Q4H PRN mild pain 01/16/24 01/16/24 History
(Tylenol)
amiodarone 200 mg tablet 200 mg PO DAILY Arrhythmia 01/16/24 01/16/24 History
apixaban 2.5 mg tablet (Eliquis) 2.5 mg PO BID Blood Clot 01/16/24 01/16/24 History
Prevention/Tx
bisacodyl 10 mg rectal suppository 10 mg AR DAILY PRN if no results 01/16/24 01/16/24 History
for MOM
cholecalciferol (vitamin D3) 1,250 1,250 mcg PO Q30D Supplement 01/16/24 01/16/24 History
mcg (50,000 unit) capsule
cholecalciferol (vitamin D3) 125 125 mcg PO Q30D Supplement 01/16/24 01/16/24 History
mcg (5,000 unit) tablet
furosemide 20 mg tablet 20 mg PO DAILY Fluid 01/16/24 01/16/24 History
Retention/Swelling
guaifenesin 100 mg/5 mL oral liquid 200 mg PO Q6HPRN PRN cough 01/16/24 01/16/24 History
meclizine 25 mg tablet 25 mg PO Q4HPRN PRN dizziness 01/16/24 01/16/24 History
metoprolol succinate 25 mg 25 mg PO DAILY Blood Pressure 01/16/24 01/16/24 History
tablet,extended release 24 hr
miconazole nitrate 2 % topical 1 applic topical BID B/L breast 01/16/24 01/16/24 History
cream (Micatin)
nystatin 100,000 unit/gram topical 1 applic topical BID abd fold 01/16/24 01/16/24 History
powder
oxycodone 5 mg tablet 5 mg PO Q8H PRN severe pain 01/16/24 01/16/24 History
povidone-iodine 10 % topical 1 applic topical Q48H left calf 01/16/24 01/16/24 History
solution (Betadine)
sennosides 8.6 mg tablet (senna) 8.6 mg PO [id number] PRN constipation 01/16/24 01/16/24 History
sodium hypochlorite 0.25 % 1 applic topical DAILY right heel 01/16/24 01/16/24 History
solution (Dakin's Solution)
spironolactone 25 mg tablet 12.5 mg PO QPM Blood Pressure 01/16/24 01/16/24 History
Review of Systems
-
Unable to obtain full review of systems at this time due to: Dementia
History Source: Patient
All other systems: Negative unless noted
A 10 point review of systems was completed, and was negative except as per HPI.
Physical Exam
Vital Signs
Temp Pulse Resp BP Pulse Ox
97.8 F 67 13 96/47 100
01/19/24 11:27 01/19/24 14:00 01/19/24 14:00 01/19/24 14:00 01/19/24 14:00
01/18/24 01/19/24 01/20/24
06:59 06:59 06:59
Actual Weight 64 kg 63.503 kg
Body Mass Index (BMI) 25.6
Lab Results
01/19/24 03:14
WBC 17.1 10^3/uL (4.8-10.8) H 01/19/24 03:14
Hgb 8.6 g/dL (12.0-16.0) L 01/19/24 03:14
Hct 26.7 % (37.0-47.0) L 01/19/24 03:14
Plt Count 192 10^3/uL (130-400) 01/19/24 03:14
Abs Immat Gran (auto) 0.5 10^3/uL (0-0.05) H 01/19/24 03:14
Neutrophils % 88.3 % (42.2-75.2) H 01/19/24 03:14
Physical Exam
General: Other (dyspneic with conversation)
HEENT: Negative Moist Mucous Membranes
Respiratory: Accessory Resp Muscle Use
GI: Soft, Non Tender, Non Distended and Other (bates with tea colored urine/sediment)
Skin: Warm and Other (Patient declined sacral exam)
Neuro: Awake and Alert
Psych: Other (anxious)
Data Reviewed
-
CT Scan: Image Personally Visualized and interpreted, Report Reviewed by me, Discussed with Physician, Discussed with Nurse and Discussed with Patient
Labs: Labs Reviewed by me, Discussed with Physician, Discussed with Nurse and Discussed with Patient
Assessment / Plan
-
83 yo female with a history of dementia, afib (Eliquis held on admission), subdural hematoma with right hemiparesis, chronic lymphedema, HTN and known sacral decub seen today in the ICU where she is being treated for sepsis and on antibiotics for
UTI. She also has a noted an unstageable sacral decub the majority of which is covered with eschar tissue. Declining exam at this time. SOB with conversation, O2 has been unable to be weaned.
Would likely benefit from debridement. CT imaging reviewed of pelvis with possible osteomyelitis noted. During my initial conversation with her, she stated adamantly that she wanted no procedures and was tired and just wanted to ; however, during
our conversation, she began asking what surgical interventions are being considered and wants to discuss more with her daughter and other care providers prior to making any decisions.
--Continue to hold Eliquis
--Local wound care, wound nurses following
--Will follow for possible debridement if patient and family would like to proceed
--CXR ordered given respiratory symptoms, would optimize prior to anesthesia if patient agreeable to surgery
--- NOTE | 2024-01-19 14:51 | CM ---
CM following re: discharge planning.
Discussed in rounds, reviewed pt's chart, met with pt and left a message to pt's daughter Linda and son Will.
Pt is a group home care resident at [facility]. Per [facility] liaison, pt has been a group home care resident there since 2006, on Medicaid bed hold.
A referral to [facility] noted and [facility] denied a referral. Per [facility] liaison, [facility] team is working with pt's family to address their concerns.
D/C plan: return back to [facility] when medically stable.
CM will follow with discharge plan updates as hospitalization progresses
[2024-01-19] MEDS: D5/0.45%NSS with KCL 20 MEQ 1000 IV (14:54)
[2024-01-19 15:08] LABS: Hematocrit 28.1 % (37.0-47.0); Hemoglobin 8.9 g/dL (12.0-16.0)
[2024-01-19 15:13] LABS: Glucose - Point of Care 139 mg/dl (70-99)
--- NOTE | 2024-01-19 17:18 | PTCARENOTE ---
patient awake, alert, oriented to herself only. Disoriented to time, place and situation. This morning during breakfast, I was feeding patient. While eating patient was talking frequently, frequent coughing noted. Possible aspiration was explanation
to patient: ' Please try to east first . When you eat and talk you are coughing and you can aspirate ' 1200 I assistant customer service manager wound care nurse to change wounds dressing on pt's sacrum and B/L LE. Indwelling Moraes was inserted during that time for
obstruction. Dilaudid administered for pain prior to wound treatment. Patient was assisted with repositioning. Through the day, patient tells to multiple doctors and other staff members that ' some nurse was here this morning, she yelled on me and
told me not to talk. She shovel food in my mouth and told me to swallow without talking' ' then another two nurses came in and they push me around while I was in bed because of this nurses I have a pain in my back' At this time patient in bed. Plan
of care, either it's treatment, medications, or routine Q 2 hrs reposition explain to patient prior administration of care. At this time patient in bed. HOB elevated. PO intake encouraged. Indwelling Moraes draining bloody urine call ponce within
reach
--- NOTE | 2024-01-19 18:34 | PTCARENOTE ---
AAO x3. No wheezing no SOB, no cough noted. pt on 2L POX 91-90%. pt ambulated around unit while on RA able to maintain POX on 88-90%/RA. Denied SOB during ambulation
[2024-01-19 19:11] LABS: Transferrin 77 mg/dL (200-360)
[2024-01-19] MEDS: XANAX 0.25 MG PO (19:50)
[2024-01-19] MEDS: COLACE LIQUID 100 MG PO (19:50)
[2024-01-19] MEDS: COLACE PO (19:59)
--- NOTE | 2024-01-19 21:50 | PTCARENOTE ---
ax1 confused anxious agitated with care- pain with all care- Xanax and pain meds per orders- see mar- sinus afebrile- bates no longer bloody- draining yellow
[2024-01-20] VITALS (21 sets, daily range): BP systolic 91–114; BP diastolic 39–71; BMI 25.3
[2024-01-20] MEDS: DILAUDID 0.5 MG IV ×4 (02:37→20:05)
--- NOTE | 2024-01-20 02:56 | PTCARENOTE ---
wound care done- pt pre medicated with pain meds-- she is in pain while turning. she is asking that she be allowed to stop the pain and pursue comfort. she prays to god to take her- she said her kids will be in today and she will discuss with them
[2024-01-20] MEDS: D5/0.45%NSS with KCL 20 MEQ 1000 IV ×2 (02:58→19:30)
[2024-01-20] MEDS: FLAGYL 500 MG 100 IV ×3 (03:00→21:07)
[2024-01-20 03:48] LABS: % Basophils 0.3 % (0-2); % Eosinophils 0.1 % (0-6); % Immature Granulocytes 3.7 % (0-0.5); % Lymphocytes 6.7 % (20.5-51.1); % Monocytes 4.1 % (1.7-9.3); % Neutrophils 85.1 % (42.2-75.2); Absolute Basophils 0.1 10^3/uL (0-0.2); Absolute Immature Granulocytes 0.7 10^3/uL (0-0.05); Absolute Lymphocytes 1.2 10^3/uL (1.2-3.4); Absolute Monocytes 0.7 10^3/uL (0.1-0.6); Hematocrit 25.9 % (37.0-47.0); Hemoglobin 8.2 g/dL (12.0-16.0); Mean Corp Hgb Conc. 31.7 g/dL (33.0-37.0); Mean Corpuscular Hgb 29.7 pg (27.0-31.0); Mean Corpuscular Volume 93.8 fL (81.0-99.0); Mean Platelet Volume 9.4 fL (7.4-10.4); Nucleated Red Blood Cells % 0.1 %; Platelet Count 200 10^3/uL (130-400); Red Blood Cell Count 2.76 10^6/uL (4.20-5.40); Red Cell Dist. Width 17.2 % (11.5-14.5); White Blood Cell Count 17.7 10^3/uL (4.8-10.8)
[2024-01-20 04:12] LABS: ALT (SGPT) 57 U/L (0-35); AST (SGOT) 100 U/L (14-36); Albumin 2.1 g/dl (3.5-5.0); Alkaline Phosphatase 153 U/L (38-126); Blood Urea Nitrogen 44 mg/dl (7-17); Carbon Dioxide 23 mmol/L (22-30); Chloride 116 mmol/L (98-107); Estimated Creatinine Clearance 30 ml/min; Glucose 145 mg/dl (70-99); Potassium 3.7 mmol/L (3.5-5.1); Sodium 140 mmol/L (135-145); Total Bilirubin 1.2 mg/dl (0.2-1.3); Total Protein 4.5 g/dl (6.3-8.2); eGFR 49.55
[2024-01-20] MEDS: PROTONIX IV 40 MG IV ×2 (07:40→21:08)
[2024-01-20] MEDS: NSS (PRESERVATIVE FREE) 10 ML IV ×2 (07:40→21:08)
[2024-01-20] MEDS: COLACE LIQUID PO (07:40)
[2024-01-20] MEDS: DAKIN'S SOLUTION 0.25% 1/2 STRENGTH 473 ML TOPICAL (07:41)
[2024-01-20] MEDS: ANTIFUNGAL CLEAR 1 APPLIC TOPICAL ×2 (07:41→21:12)
[2024-01-20] MEDS: DESITIN MAXIMUM STRENGTH PASTE 1 APPLIC TOPICAL (07:41)
[2024-01-20] MEDS: DESENEX/MITRAZOL/ZEASORB 1 APPLIC TOPICAL ×2 (07:41→21:12)
[2024-01-20] MEDS: ProAmatine PO (07:41)
--- NOTE | 2024-01-20 07:49 | PTCARENOTE ---
In for morning cares for patient. Patient states, 'today i want to be left alone, today is the day i , today i don't want anyone to touch my butt, today i just want to be happy and left alone, i'm comfortable and don't need your help.' Offer am
medications, offer am nutrition, am cares completed anterior while talking to patient during cares patient states 'okay that's enough, when my son gets here i'm going home.' Continue supportive cares, emotional support, on other nursing measures
when patient allows. Continue to reinforce teaching, try to explain all procedures and protocols prior to implementation while patient excepting of cares. Continue to reinforce, redirect and provide supportive cares. Assessment update and vital sign
trends ongoing.
--- NOTE | 2024-01-20 08:04 | W.PN.URO.CBU ---
Today's Communication / Plan
-
per Dr Rivera, the patient is now amenable to such surgical intervention -- I have posted her for surgery tomorrow, 01/21/2024
Assessment / Plan
-
Overall clinically improved
with E. coli in urine and presumably chronically infected material in left kidney's collecting system, possible causing partial obstruction, cystoscopy to evacuate infected blood and left ureteroscopy to clear debris and to place stent to alleviate
obstruction MIGHT be beneficial
Diagnosis
-
Date of Service: January 20, 2024
-
Patient Diagnosis:
Sepsis
E coli UTI
Left renal pelvis and collecting system: calcareous material
gross hematuria
DNR/DNI
Objective
-
Vital Signs
Temp Pulse Resp BP Pulse Ox
97.8 F 50 18 110/47 99
01/20/24 07:53 01/20/24 07:58 01/20/24 07:58 01/20/24 07:58 01/20/24 08:01
Intake and Output
01/19/24 01/20/24 01/21/24
06:59 06:59 06:59
Intake Total 520 / 520 1905 / 1905 80 / 80
Output Total 450 / 450 2225 / 2225 50 / 50
Balance 70 / 70 -320 / -320 30
Intake:
Oral fluids 120 / 120 420 / 420
IV fluids (Total) 1285 / 1285 80 / 80
D5/0.45%NSS with KCL 20 MEQ 20 80 / 80
meq In 1,000 ml @ 80 mls/hr IV
.[id number] SARAVANAN Rx#:[id number]
IVF 1285 / 1285
IV piggybacks 400 / 400 200 / 200
Output:
Urine, Moraes 200 / 200 1925 / 1925 50 / 50
Urine, Voided 250 / 250 300 / 300
Other:
How many times incontinent 1
SATURATED amount urine
Laboratory Results
01/20/24 03:24
01/20/24 03:24
Physical Exam
-
General - well developed, well nourished, no acute distress
Chest - clear bilaterally
Abdomen - soft, non-tender, positive bowel sounds, no CVAT, no incisional pain or distention
Genitalia - normal
Rectal - normal
Skin - warm & dry with no rash
Neuro - AOx3, no motor deficits
Extremities - no clubbing, no cyanosis, no edema
Incision - clean, dry
Dressing - clean, dry, intact
Care Review
Data Reviewed
Discussed with: Hospitalist
--- NOTE | 2024-01-20 08:12 | PTCARENOTE ---
at bedside for self update. Will follow up with hairspring assembler and family. Vehicle Window Tinter with Follow up in ICU. Will await update in am rounds with critical care team.
--- NOTE | 2024-01-20 08:14 | W.PN.INTV ---
Today's Communication / Plan
Recommendations
Ureteroscopy with stenting tentatively tomorrow 01/21/2024
Will most likely also perform sacral ulcer debridement tomorrow
Wean down IVF to 40 cc/h
Encourage PO intake
Assessment
-
Assessment: 83-year-old female with a past medical history of A-fib on Eliquis, history of CHF, macular degeneration, hypertension, hyperlipidemia, valvular heart disease, personal history of COVID-19, dementia, chronic lymphedema, and anemia who
presents from [facility] for bilateral lower extremity swelling as well as right upper extremity swelling. Patient has a RUE PICC line and there was concern for possible infiltration. Vitals initially in the ER showed she was afebrile to 98
�F, pulse rate: 61, respiratory rate: 20, and SpO2 100% on room air. Initial labs showed leukocytosis to 19.2, anemia 9.3, hyponatremia to 122, creatinine of 3, BUN of 103, CRP 71, procalcitonin 1.05, TSH of 5.91, and positive urinalysis suggestive
of UTI - urine cultures/blood cultures were collected. CXR showed low lung volumes with right hemidiaphragm elevation with mild bilateral subsegmental atelectasis/scarring. Patient also had a right tibia/fibula & foot x-ray showing marked diffuse
soft tissue swelling about the right foot and right ankle with diffuse osteopenia. CT abdomen/pelvis also obtained showing gallstones with enlarged gallbladder and sludge. Also left nonobstructing renal calculi as well as calculi at the left UPJ
with suggested mild obstructive uropathy. There also was large volume stool filling the rectum with sigmoid diverticulosis. Patient given antibiotics with aztreonam, vancomycin as well as IV fluids with total of 3L NS 0.9%. Considering patient
remains hypotensive with SBP in the 80s�90s range despite IV fluids, patient was admitted to the ICU for further care. Critical care services now consulted for additional management/recommendations.
Chronic conditions ETHOLOGIST: Dementia, history of A-fib on Eliquis, chronic lymphedema, personal history of COVID, sacral decubitus ulcer, right lower extremity cellulitis, visual impairment, macular degeneration, anemia, iron deficiency, anxiety,
osteoarthritis, CKD, history of CHF, hypertension, hyperlipidemia, valvular heart disease
Impression:
#Hypotension
Due to sepsis from UTI; other possible sources are skin vs gallbladder vs bowel; also pt is hypoalbuminemic
UTI - growing E. coli and Proteus
#Sacral decubitus ulcer + right heel ulcer
Patient resistant to wound care
#Hematoma seen on lateral RLE (?trauma)
#Hypochloremic, hyponatremia
Resolved� likely due to reduced PO intake
#Severe STEFFANIE with uremia (BUN: 103 on admission)
Improving, BUN 44 and creatinine 1.1 today
#Left sided renal stones with suspected obstructive uropathy
Per daughter, patient now amenable to surgical intervention.
#Transaminitis
Stable
#Acute anemia likely dilutional - s/p 1 U PRBC on 01-17-2024
#Coagulopathy with increased PT/INR & aPTT s/p FFP x1 unit on 01-17-2024
#Constipation
#Increased TSH with elevated free T4
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
#RUE PICC-line associated thrombus
Plan:
Hypotension:
- Blood pressure improving with midodrine, patient remains hemodynamically stable.
- Patient has not required vasopressors.
- Gentle IVF, reduce to 40 cc/h per nephrology
- Continue midodrine 5mg TID
- Continue to hold amiodarone given she continues to be bradycardic.
Gram-negative UTI with bacteremia:
- Urine culture with E. coli/Proteus.
- Gram-negative Anaerobic jim blood culture 01/16/2024.?
- Repeat Blood cultures negative.
- Right upper quadrant ultrasound without acute abnormality
- Kidney ultrasound without significant hydronephrosis.
- Discontinue cefepime/Flagyl
- Start IV ceftriaxone 1000 mg daily, await final results.
- Vancomycin has been discontinued
- Urology following, recs appreciated.
Sacral decubitus ulcer + right heel ulcer:
- Would need debridement and assessment for possible osteomyelitis.
- Patient amenable to surgical intervention.
- Wound care consulted and following for pressure ulcers.
- Continue wound care to sacral and R-heel ulcer-patient is refusing wound care.
- Bowel regimen with senna/colace.
Hematuria and anemia:
- Anticoagulation on hold due to above.
- S/P FFP x 1 unit on 01/17/2024 given her acute drop in Hb to 6.5, Hemoglobin 8.6 01/19/2024, and 8.2 01/20/2024.
- Trend INR.
- Urology consulted given her severe STEFFANIE with suspected obstructive uropathy from stone in left UPJ --> pt may benefit from urological procedure with ureteroscopy to clear debris and place stent to alleviate obstruction.
- Patient previously refusing procedure however per daughter and hospitalist, patient amenable to such surgical interventions.
- Ureteroscopy with stenting tentatively tomorrow 01/21/2024
- Urology following, recs appreciated.
- Continue to monitor H&H, replete as needed.
Acute kidney injury:
- Improving.
- Patient does have chronic lymphedema.
- Sodium normal.
- Echocardiogram to be updated
- Follow renal function electrolytes
- Nephrology following patient.
- Maintain SpO2 >90-94%
- prn nebulized bronchodilators
- Incentive spirometer encouraged
- Replete electrolytes with K>4, Mg>2
- Maintain euglycemia with goal BG 140-180
- Given her RUE thrombus associated with PICC, she should remain anticoagulated upon dc.
- When feasible, will change PICC line to opposite arm. No need to remove PICC at this time given it still flushes and there is good blood return.
- DVT ppx - SCDs only for now given coagulopathy eventually restart Eliquis.
On 01/15 + 01/16, Dr. Evans discussed the above with the son, Will, in layman's terms to his satisfaction, and answered all of his questions. We discussed code status and goals of care and he believes that she would not want to be put on a
ventilator if her breathing worsened or undergo CPR if her heart were to stop. He needs to speak to the patient's POA which is the patient's sister before any official decision can be made. I asked him to please touch base with us after he has his
conversations that I can update her code status.
patient DNR/DNI but continue full medical treatment otherwise including antibiotics, vasopressors if needed, and other cardiac medications. I answered all the patient's sister's questions to her satisfaction by Dr. Evans.
Maintain ICU level until final decision regarding procedure.

Data:
B/L LE peripheral venous ultrasound 01/20/2024:
No evidence of deep venous thrombosis of the thighs and popliteal regions bilaterally.
Calf veins bilaterally not visualized.
CXR 01/19/2024:
No radiographically demonstrable acute cardiopulmonary process.
Abdominal ultrasound 01/19/2024:
Sludge-filled distended gallbladder. No gallbladder wall thickening, pericholecystic fluid, or bile duct dilatation by ultrasound. Reportedly negative sonographic Nguyen's sign.
Echo 01/19/2024:
Left ventricle is small in size. Moderate to severe left ventricular hypertrophy. Hyperdynamic left ventricular systolic function.
No regional wall motion abnormalities are seen. LV ejection fraction is 70-75% by visual assessment.
Diastolic function indeterminate due to mitral annular calcification.
Thickened mitral valve leaflets. Mitral annular calcification. Mitral sclerosis. Calcified cords. Moderate mitral stenosis. Severe anterior eccentric mitral regurgitation.
Moderately dilated left atrium.
Trileaflet aortic valve. Thickened aortic valve with restricted leaflet motion. Calcified aortic valve. Moderate aortic stenosis. Mild aortic regurgitation.
Tricuspid valve opens normally. Moderate eccentric tricuspid regurgitation.
Estimated pulmonary artery pressure of 54 mmHg assuming a right atrial pressure of 8 mmHg.
Normal right atrial size.
Enlarged right ventricular size. Normal right ventricular systolic function.
CT Abd/Pelvis without contrast 01-16-2024:
MARKEDLY LIMITED STUDY as a result of several factors.
Gallstones seen within a relative prominent size gallbladder also containing some high attenuation density which could represent sludge.
Markedly limited evaluation of the kidneys, as detailed above with some small nonobstructing left renal calculi as well as calculus and/or calculi at the left ureteropelvic junction with findings suggesting the possibility of accompanying mild
obstructive uropathy. Evaluation for renal space-occupying lesion markedly limited.
No intestinal obstruction. Large volume stool filling the rectum, markedly limited by beam hardening artifact from bilateral hip arthroplasties. Cannot exclude some accompanying perirectal stranding.
Sigmoid diverticulosis.
Right Tibia/Fibula XR/Foot XR 01-16-2024:
Marked diffuse soft tissue swelling about the right foot and right ankle.
Degenerative changes and diffuse osteopenia.
CXR 01-16-2024:
Pulmonary vascularity within the limits of normal.
Right PICC line with tip in distal SVC.
Markedly low lung volumes and elevation of right hemidiaphragm. Some mild bilateral subsegmental atelectasis and/or scarring.
Renal/Bladder US 01-16-2024:
Simple left renal cyst.
Nonobstructing left renal stone.
Incidental moderate gallbladder sludge.
Right Upper Extremity US 01-16-2024: Small nonocclusive thrombus formation in the basilic vein.
Subjective Dataa
Subjective Data
Date of Service:
Date of Service: January 20, 2024
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
Subjective:
Overnight, patient seen to be confused, and agitated and sometimes refusing care. However, he was more receptive with redirection and emotional support. Blood pressure improved and remained stable throughout the night.
Review of Systems
General: Fever (Negative), Chills (Negative) and Pain (From sacral ulcers)
HEENT: Thrush (Negative)
Cardiopulmonary: Dyspnea (Negative), Wheezing (Negative) and Chest Pain (Negative)
GI: Abdominal Pain (Negative) and Nausea (Negative)
Neuro: Headache (Negative) and Confused
Genitourinary: Moraes
Objective Data
Data Reviewed
Vital Signs / I&O / Oxygen:
Vital Signs
Temp Pulse Resp BP Pulse Ox
97.8 F 50 18 110/47 99
01/20/24 07:53 01/20/24 07:58 01/20/24 07:58 01/20/24 07:58 01/20/24 08:01
Intake and Output
01/19/24 01/20/24 01/21/24
06:59 06:59 06:59
Intake Total 520 / 520 1905 / 1905 80 / 80
Output Total 450 / 450 2225 / 2225 50 / 50
Balance 70 / 70 -320 / -320 30 / 30
SaO2 99
Nasal Cannula flow liters per 2
minute
Physical Exam
General: Respiratory Distress (negative) and Comfortable
HEENT: Normocephalic and Anicteric
Cardiovascular: Irregular Rhythm, Peripheral Edema (RLE +1 edema, trace LLE edema) and Other (Bradycardic)
Respiratory: Wheeze (Negative), Rhonchi (Negative), Non-Labored Respirations and Other (Coarse breath sounds heard bilaterally)
GI: Soft, Non Distended, Non Tender and Normal Bowel Sounds
Neurology: Awake and Alert
Skin: Warm, Dry and Other (Hemorrhagic bubble seen on lateral RLE; skin breakdown on right heel)
Labs/Micro/Reports
Lab Data
01/20/24 03:24
01/20/24 03:24
Microbiology
01/16/24 12:24 Blood/Venous Blood Culture - Preliminary
No Growth in 72 hours- Final report to follow
01/18/24 09:45 Blood/Venous Blood Culture - Preliminary
No Growth in 24 hours- Final report to follow
01/16/24 13:38 Blood/Venous Blood Culture - Preliminary
Anaerobic gram neg bacilli
01/16/24 13:38 Blood/Venous Gram Stain - Preliminary
01/18/24 09:13 Blood/Venous Blood Culture - Preliminary
No Growth in 24 hours- Final report to follow
01/16/24 12:03 Urine Urine Culture - Final
Escherichia coli
Proteus mirabilis
01/16/24 19:01 Nose MRSA Screen - Final
No Methicillin Resistant Staphylococcus aureus isolated.
--- NOTE | 2024-01-20 08:40 | W.PN.HOSP.TC ---
Today's Communication/Plan
-
Cystoscopy planned for tomorrow per urology
Continue IV ceftriaxone/Flagyl
Ongoing goals of care discussions with family
Assessment / Plan
Assessment / Plan
IMPRESSION: This is a 83-year-old female patient with PMH of atrial fibrillation on Eliquis, CHF, HTN, anemia, hyperlipidemia, and CKD presenting to the ED with PICC line in right upper extremity for hypotension and bilateral lower extremity edema.
PLAN:
#Severe Sepsis (multifactorial, likely from complicated UTI)
-E. coli in urine
-Blood culture 01/15 positive with gram-negative bacilli.
-Continue midodrine
-pressors (levophed) if needed
-US right upper extremity; Small nonocclusive thrombus formation in the basilic vein.
-Lactic acid normal
-CT Abd/pelvis showed Large volume stool filling the rectum, Sigmoid diverticulosis.
-Continue bowel regimen
-CT with left renal calculus debris within the collecting system and renal pelvis, no definite hydronephrosis
-monitor bates for hematuria
-Cystoscopy Scheduled for 01/20 per urology
-Antibiotics changed to Rocephin from cefepime; continue metronidazole
-Ongoing goals of care discussion with family
-follow cbc, bmp in AM
#STEFFANIE
-improved with IV hydration
-Cr decreased to 1.1
-monitor bmp in AM
#Acute anemia
-continue PPI
-Transfused on 01/16
-HB today is 8.2
-monitor cbc
-hold eliquis for cystoscopy/stent placement by urology
#Transaminitis
-Likely secondary to sepsis
-Monitor cmp in AM
#stage 3-4 sacral decubitus ulcer
-necrotic eschar noted; possible chronic underlying osteomyelitics
-gen surgery consulted for wound debridement; patient declined at this time
- continue wound care
#Bilateral lower extremity lymphedema/Ulcer on right posterior heel
-Seen by podiatry and they do not think right heel wound is a source of infection.
-Tibia/fibula xray showed Marked diffuse soft tissue swelling about the right foot and right ankle, Degenerative changes and diffuse osteopenia.
-U/S for B/L lower extremities: no DVT
#CHFpEF/?New systolic murmur
-Echo showed EF 70-75% and LVH; does not appear to be in exacerbation
-Hold current hypertensive medications (spironolactone, furosemide)
-proBNP is 2690 on 01/15
-Monitor Is/Os, daily weights
-Monitor telemetry
#Paroxysmal atrial fibrillation
-hold amiodarone; bradycardia
-Hold metoprolol succinate and Eliquis
-Monitor telemetry
#Elevated TSH and free t4
-check levels again after infection is resolved
DVT: SCD's
Code: DNR
Anticipated Discharge: > 48 hours
Subjective/Interval History
-
Date of Service: January 20, 2024
Objective Data
-
Labs:
Laboratory Results
01/20/24
03:24
WBC 17.7 H
Hgb 8.2 L
Hct 25.9 L
Plt Count 200
Sodium 140
Potassium 3.7
Chloride 116 H
Carbon Dioxide 23
BUN 44 H
Creatinine 1.1 H
Glucose 145 H
Calcium 8.0 L
Total Bilirubin 1.2
AST 100 H
ALT 57 H
Alkaline Phosphatase 153 H
Vital Signs:
Vital Signs
Temp Pulse Resp BP Pulse Ox
97.8 F 50 18 110/47 99
01/20/24 07:53 01/20/24 07:58 01/20/24 07:58 01/20/24 07:58 01/20/24 08:15
I&O
04/01/20/24 01/21/24
06:59 06:59 06:59
Intake Total 520 / 520 1905 / 1905 80 / 80
Output Total 450 / 450 2225 / 2225 50 / 50
Balance 70 / 70 -320 / -320
Review of Systems
-
History Source: Patient
All other systems: Reviewed and negative
Physical Exam
-
General: No Apparent Distress and Appears Chronically Ill
HEENT: Normocephalic
Respiratory: Clear to Auscultation
Cardiac: Regular Rhythm, S1/S2 and Murmur (systolic murmur)
GI: Soft and Nontender
Genito-urinary: Bates
Musculoskeletal: Edema, Right Lower Extrem and Edema, Left Lower Extrem
Skin: Decubitus Ulcers (sacral)
Neuro: Awake, Alert and Oriented
Psych: Calm
--- NOTE | 2024-01-20 09:30 | PTCARENOTE ---
Patients daughter at bedside with patient. Daughter states she wants everything done cystoscopy, debridement, whatever she needs to help her improve. Wishes to talk to docs' this morning. States drove in from out of town to clarify things with son,
patients sister and medical staff.
--- NOTE | 2024-01-20 09:58 | PTCARENOTE ---
Family (daughter, son-in-law) at bedside await son and then plan conference call with patients sister to update goals of cares, poa status, and medical treatment from here. Patient stating doesn't want to talk without son. That she wants to but
knows that she needs surgery and that would help her live. Again ongoing supportive cares and emotional support. Update with social service will follow up with hospitalist on rounds and with family when they are all available. Teaching reinforced.
--- NOTE | 2024-01-20 10:48 | PTCARENOTE ---
Psychiatry team at bedside. Patient sleeping at this time. Updated on events of am with hospitalist and cardiology, Continue supportive cares follow up assessment and vital sign trends
[2024-01-20] MEDS: DILAUDID 1 MG IV (10:52)
--- NOTE | 2024-01-20 11:50 | W.PN.NEPH.PH ---
Today's Communication / Plan
-
wean down IVF
Assessment/Plan
-
Assessment:
Hypotension
Acute kidney injury
Hypomagnesemia
Metabolic acidosis
Azotemia
Hyponatremia
Acute anemia
Lymphedema
Elevated LFTs
nonobstructive left nephrolithiasis
Echo 01/18:
EF 70-75%, mod to severe LVH, DD intermediate
mod MS, severe MR, mod , mod TR
Plan:
STEFFANIE-cr improving and non oliguric
bates placed for retention
chr lymphedema
no diuretics at this time
encourage po intake
she seem third spacing with low alb and valvular heart disease, wt stable
ok for gentle IVF but decrease rate to 40cc/hr till po intake is adequate
BP are soft, check cortisol off pressors >24hrs, remians on midodrine
noted echo results
hb stable
follow LFTs
d/w nursing and pt, family
pt seem agreed to intervention per daughter
-
-
Date of Service: January 20, 2024
CC / HPI / ROS
-
Chief Complaint:
STEFFANIE
History of Present Illness:
critically ill in ICU
STEFFANIE/Cr down to 1. bates placed for retention of 600cc
Hgb down to 8.2
bp soft on midodrine
abx for GNR bcx/sepsis
echo valvular Heart disease, LVH
Review of Systems:
pain in legs-chronic
no CP
no n/v but po intake is poor
Labs
-
Labs:
WBC 17.7 10^3/uL (4.8-10.8) H 01/20/24 03:24
RBC 2.76 10^6/uL (4.20-5.40) L 04/30/24 03:24
Hgb 8.2 g/dL (12.0-16.0) L 01/20/24 03:24
Hct 25.9 % (37.0-47.0) L 01/20/24 03:24
Plt Count 200 10^3/uL (130-400) 01/20/24 03:24
Sodium 140 mmol/L (135-145) 01/20/24 03:24
Potassium 3.7 mmol/L (3.5-5.1) 01/20/24 03:24
Chloride 116 mmol/L (98-107) H 01/20/24 03:24
Carbon Dioxide 23 mmol/L (22-30) 01/20/24 03:24
BUN 44 mg/dl (7-17) H 01/20/24 03:24
Creatinine 1.1 mg/dL (0.6-1.0) H 01/20/24 03:24
eGFR 49.55 01/20/24 03:24
Glucose 145 mg/dl (70-99) H 01/20/24 03:24
Calcium 8.0 mg/dl (8.4-10.2) L 01/20/24 03:24
Phosphorus 3.2 mg/dl (2.5-4.5) 01/19/24 03:14
Nrn-G-Sekodborvmz Pept 2690 pg/ml 01/16/24 11:31
Albumin 2.1 g/dl (3.5-5.0) L 01/20/24 03:24
Physical Exam
-
Vital Signs:
Vital Signs
Temp Pulse Resp BP Pulse Ox
97.8 F 54 14 99/57 100
01/20/24 07:53 01/20/24 10:00 01/20/24 10:00 01/20/24 10:00 01/20/24 10:00
Cardiovascular:: Regular rate and rhythm
Respiratory:: Bilateral: CTA (decreased)
Lung Excursion:: Normal
Abdomen:: Nontender and Soft
Extremity Edema:: +2: Bilateral:
Bates Catheter: Yes
[2024-01-20] MEDS: ROCEPHIN 1000 MG IV (12:09)
[2024-01-20] MEDS: ProAmatine 5 MG PO ×2 (12:09→18:25)
[2024-01-20] MEDS: STERILE WATER FOR INJECTION 10 ML IV (12:09)
--- NOTE | 2024-01-20 12:52 | PTCARENOTE ---
Hospitalist at bedside. Updated transfer orders, ultrasound complete. Follow up plan for surgery/cysto, await family meeting to discuss goals of care, and plan treatment directions. Await son. Follow up rounds safety checks. Patient still refusing
to turn or be touch for cares. Discuss at length with family risk and damage from not turning, eating and working in cares. Family knows feels best to rest and prep for possible surgery. Patient sleeping when undisturbed. Daughter was very helpful
to get patient thru ultrasound.
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
--- NOTE | 2024-01-20 14:12 | W.PN.UPDATE ---
Update Note
Progress Note Update
Patient seen and examined
Discussed with resident, pot lining supervisor, nephrology, nursing
Plan of care has been discussed with patient's daughter at the bedside.
Impression:
Sepsis with septic shock/hypotension
Complicated UTI with left ureteral obstruction secondary to nephrolithiasis versus debris.
Acute urinary retention with hematuria requiring Moraes catheter placement.
Sacral wound stage III�4 with concern for osteomyelitis and necrotic eschar.
Acute on chronic anemia
Abnormal transaminases
Right upper extremity PICC with line associated thrombosis
Acute kidney injury
Acute hyponatremia.
Chronic CHF preserved EF.
Valvular dysfunction with moderate MS, severe MR, moderate
Pulmonary hypertension
Paroxysmal atrial fibrillation
Bradycardia
Chronic bilateral lower extremity edema/lymphedema
Plan:
Sepsis with septic shock and hypotension
Most likely source is complicated UTI with left ureteral obstruction as well as acute renal obstruction and hematuria.
Blood culture likely contaminant with gram-negative anaerobe.
Urine culture with E. coli and Proteus
Antibiotics narrowed from cefepime/prednisone to ceftriaxone
Scheduled for cystoscopy on 01/20
Continue Moraes catheter monitor for recurrent hematuria
Sacral decub stage III-IV.
Suspect chronic osteomyelitis
Necrotic eschar noted
Surgical evaluation noted.
At this point patient declined any surgical intervention on the wound. Continue wound care.
Septic shock with hypotension likely multifactorial secondary to infection as well as severe anemia
Improved with IV fluids, blood transfusion, had not required pressors. Initiated midodrine.
Patient with chronic CHF preserved left ventricular function and multiple valvular abnormalities as above. Pulmonary hypertension. Monitor volume status closely. Continue midodrine with caution.
Acute kidney injury improved with IV hydration and blood transfusions
Monitor creatinine
Acute anemia secondary to dilution as well as blood loss with hematuria
Hemoglobin improved with transfusion. Monitor closely.
Paroxysmal atrial fibrillation
Bradycardic.
Hold amiodarone.
Disposition: Overall patient with advanced dementia, bedbound with multiple comorbidities not limited to sepsis, UTI with risk of recurrence, sacral wound. Ongoing goals of care discussion.
CODE STATUS DNR
[2024-01-20 14:31] LABS: Cortisol, Random 25.1 ug/dl
--- NOTE | 2024-01-20 16:12 | PTCARENOTE ---
Brought family over to [facility] during transfer. Still screaming in discomfort, screaming about being forced to move. Reinforce positive progress in hospital. Positive progress in labs. Family discussing cysto/debrd vs comfort measures. Supposed to
have conference call with patient's sister to discuss goals of cares. Also reinforced how well patient did with cares and turns despite not wanting too. Continued reinforcement in progress, continued reinforcement in pain management (medications,
turning, diversional activities) Continue supportive cares thru transfer.
[2024-01-20] MEDS: DESITIN MAXIMUM STRENGTH PASTE TOPICAL ×2 (16:55→21:59)
[2024-01-20] MEDS: COLACE LIQUID 100 MG PO (21:06)
[2024-01-21] VITALS (10 sets, daily range): BP systolic 98–137; BP diastolic 47–89; BMI 27.7
[2024-01-21] MEDS: FLAGYL 500 MG 100 IV (04:34)
[2024-01-21] MEDS: DILAUDID 0.5 MG IV ×3 (05:17→16:12)
[2024-01-21 05:19] LABS: % Basophils 0.2 % (0-2); % Eosinophils 0.1 % (0-6); % Immature Granulocytes 3.3 % (0-0.5); % Lymphocytes 7.3 % (20.5-51.1); % Monocytes 4.6 % (1.7-9.3); % Neutrophils 84.5 % (42.2-75.2); Absolute Immature Granulocytes 0.5 10^3/uL (0-0.05); Absolute Lymphocytes 1.2 10^3/uL (1.2-3.4); Absolute Monocytes 0.8 10^3/uL (0.1-0.6); Absolute Neutrophils 13.8 10^3/uL (1.4-6.5); Hematocrit 24.6 % (37.0-47.0); Hemoglobin 7.7 g/dL (12.0-16.0); Mean Corp Hgb Conc. 31.3 g/dL (33.0-37.0); Mean Corpuscular Hgb 29.8 pg (27.0-31.0); Mean Corpuscular Volume 95.3 fL (81.0-99.0); Mean Platelet Volume 9.5 fL (7.4-10.4); Nucleated Red Blood Cells % 0 %; Platelet Count 169 10^3/uL (130-400); Red Blood Cell Count 2.58 10^6/uL (4.20-5.40); Red Cell Dist. Width 17.2 % (11.5-14.5); White Blood Cell Count 16.4 10^3/uL (4.8-10.8)
[2024-01-21 05:50] LABS: ALT (SGPT) 42 U/L (0-35); AST (SGOT) 65 U/L (14-36); Albumin 1.9 g/dl (3.5-5.0); Alkaline Phosphatase 160 U/L (38-126); Blood Urea Nitrogen 34 mg/dl (7-17); Calcium 8.1 mg/dl (8.4-10.2); Carbon Dioxide 22 mmol/L (22-30); Chloride 117 mmol/L (98-107); Estimated Creatinine Clearance 33 ml/min; Glucose 111 mg/dl (70-99); Potassium 3.9 mmol/L (3.5-5.1); Sodium 142 mmol/L (135-145); Total Bilirubin 0.9 mg/dl (0.2-1.3); Total Protein 4.3 g/dl (6.3-8.2); eGFR 55.55
[2024-01-21] MEDS: ANTIFUNGAL CLEAR TOPICAL (08:00)
[2024-01-21] MEDS: DESITIN MAXIMUM STRENGTH PASTE TOPICAL ×2 (08:00→16:00)
[2024-01-21] MEDS: DESENEX/MITRAZOL/ZEASORB TOPICAL (08:00)
[2024-01-21] MEDS: COLACE LIQUID PO (08:00)
--- NOTE | 2024-01-21 08:21 | W.PN.HOSP.TC ---
Addendum entered and electronically signed by Héctor Rivera MD 01/21/24 13:33:
Patient seen and examined
Discussed with resident
Discussed with multiple family members at the bedside.
Impression:
Sepsis with septic shock/hypotension
Complicated UTI with left ureteral obstruction secondary to nephrolithiasis versus debris.
Acute urinary retention with hematuria requiring Bates catheter placement.
Sacral wound stage III�4 with concern for osteomyelitis and necrotic eschar.
Acute on chronic anemia
Abnormal transaminases
Right upper extremity PICC with line associated thrombosis
Acute kidney injury
Acute hyponatremia.
Chronic CHF preserved EF.
Valvular dysfunction with moderate MS, severe MR, moderate
Pulmonary hypertension
Paroxysmal atrial fibrillation
Bradycardia
Chronic bilateral lower extremity edema/lymphedema
Plan:
Sepsis with septic shock and hypotension
Most likely source is complicated UTI with left ureteral obstruction as well as acute renal obstruction and hematuria.
Blood culture likely contaminant with gram-negative anaerobe.
Urine culture with E. coli and Proteus
Antibiotics narrowed from cefepime/prednisone to ceftriaxone
Scheduled for cystoscopy on 01/20
Continue Bates catheter monitor for recurrent hematuria
Sacral decub stage III-IV.
Suspect chronic osteomyelitis
Necrotic eschar noted
Surgical evaluation noted.
Agree with surgery assessment, at this point there is no clear clinical benefit for surgical debridement.
Continue wound care and offloading.
Septic shock with hypotension likely multifactorial secondary to infection as well as severe anemia
Improved with IV fluids, blood transfusion, had not required pressors. Initiated midodrine.
Patient with chronic CHF preserved left ventricular function and multiple valvular abnormalities as above. Pulmonary hypertension. Monitor volume status closely. Continue midodrine with caution.
Acute kidney injury improved with IV hydration and blood transfusions
Monitor creatinine
Acute anemia secondary to dilution as well as blood loss with hematuria
Hemoglobin improved with transfusion. Monitor closely.
Paroxysmal atrial fibrillation
Bradycardic.
Hold amiodarone.
Disposition: Overall patient with advanced dementia, bedbound with multiple comorbidities not limited to sepsis, UTI with risk of recurrence, sacral wound. Ongoing goals of care discussion.
CODE STATUS DNR
Original Note:
Today's Communication/Plan
-
Continue IV antibiotics Rocephin and metronidazole
Patient is scheduled for cystoscopy for today
Assessment / Plan
Assessment / Plan
IMPRESSION: This is a 83-year-old female patient with PMH of atrial fibrillation on Eliquis, CHF, HTN, anemia, hyperlipidemia, and CKD presenting to the ED with PICC line in right upper extremity for hypotension and bilateral lower extremity edema.
PLAN:
#Severe Sepsis (multifactorial, likely from complicated UTI)
-E. coli in urine
-Blood culture 01/15 positive with gram-negative bacilli.
-Continue midodrine
-pressors (levophed) if needed
-US right upper extremity; Small nonocclusive thrombus formation in the basilic vein.
-Lactic acid normal
-CT Abd/pelvis showed Large volume stool filling the rectum, Sigmoid diverticulosis.
-Continue bowel regimen
-CT with left renal calculus debris within the collecting system and renal pelvis, no definite hydronephrosis
-monitor bates for hematuria
-Cystoscopy Scheduled for today per urology
-Continue IV Rocephin and metronidazole
-Ongoing goals of care discussion with family
-follow cbc, bmp in AM
#stage 3-4 sacral decubitus ulcer
-necrotic eschar noted; possible chronic underlying osteomyelitics
-gen surgery consulted for wound debridement; patient's family and patient interested in pursing (explained to family that cysto should be done first and will reassess afterward for debridement)
- continue wound care
#STEFFANIE
-improved with IV hydration
-Cr stable
-monitor bmp in AM
#Acute anemia
-continue PPI
-Transfused on 01/16
-HB today is 7.7
-monitor cbc
-hold eliquis for cystoscopy/stent placement by urology
#Transaminitis
-Likely secondary to sepsis
-LFTs trending down
-Monitor cmp in AM
#Bilateral lower extremity lymphedema/Ulcer on right posterior heel
-Seen by podiatry and they do not think right heel wound is a source of infection.
-Tibia/fibula xray showed Marked diffuse soft tissue swelling about the right foot and right ankle, Degenerative changes and diffuse osteopenia.
-U/S for B/L lower extremities: no DVT
#CHFpEF/?New systolic murmur
-Echo showed EF 70-75% and LVH; does not appear to be in exacerbation
-Hold current hypertensive medications (spironolactone, furosemide)
-proBNP is 2690 on 01/15
-Monitor Is/Os, daily weights
-Monitor telemetry
#Paroxysmal atrial fibrillation
-hold amiodarone; bradycardia
-Hold Eliquis
-Monitor telemetry
#Elevated TSH and free t4
-check levels again after infection is resolved
DVT: SCD's
Code: DNR
Anticipated Discharge: > 48 hours
Subjective/Interval History
-
Date of Service: January 21, 2024
Objective Data
-
Labs:
Laboratory Results
01/21/24
05:09
WBC 16.4 H
Hgb 7.7 L
Hct 24.6 L
Plt Count 169
Sodium 142
Potassium 3.9
Chloride 117 H
Carbon Dioxide 22
BUN 34 H
Creatinine 1.0
Glucose 111 H
Calcium 8.1 L
Total Bilirubin 0.9
AST 65 H
ALT 42 H
Alkaline Phosphatase 160 H
Vital Signs:
Vital Signs
Temp Pulse Resp BP Pulse Ox
97.6 F 65 18 98/50 96
01/21/24 07:45 01/21/24 07:45 01/21/24 07:45 01/21/24 07:45 01/21/24 07:45
I&O
01/20/24 01/21/24 01/22/24
06:59 06:59 06:59
Intake Total 1905 / 1905 1340 / 1340
Output Total 2225 / 2225 980 / 980
Balance -320 / -320 360 / 360
Review of Systems
-
History Source: Patient
All other systems: Reviewed and negative
Physical Exam
-
General: No Apparent Distress and Appears Chronically Ill
HEENT: Normocephalic
Respiratory: Clear to Auscultation
Cardiac: Regular Rhythm, S1/S2 and Murmur (systolic murmur)
GI: Soft and Nontender
Genito-urinary: Bates
Musculoskeletal: Edema, Right Lower Extrem and Edema, Left Lower Extrem
Skin: Decubitus Ulcers (sacral)
Neuro: Awake, Alert and Oriented
Psych: Calm
--- NOTE | 2024-01-21 09:23 | W.PN.NEPH.PH ---
Today's Communication / Plan
-
Observe
Follow-up BMP
Assessment/Plan
-
Assessment:
Hypotension
Acute kidney injury
Hypomagnesemia
Metabolic acidosis
Azotemia
Hyponatremia
Acute anemia
Lymphedema
Elevated LFTs
nonobstructive left nephrolithiasis
Echo 01/18:
EF 70-75%, mod to severe LVH, DD intermediate
mod MS, severe MR, mod , mod TR
Plan:
STEFFANIE-cr improving and non oliguric now down to 1.0 and remains grossly non oliguric via bates
bates placed for retention
chronic lymphedema
no diuretics at this time
encourage po intake
she seem third spacing with low alb and valvular heart disease, wt stable
ok for gentle IVF but decrease rate to 40cc/hr till po intake is adequate
BP are soft, check cortisol off pressors >24hrs, remians on midodrine
For surgery today for stone extraction
-
-
Date of Service: January 21, 2024
CC / HPI / ROS
-
Chief Complaint:
STEFFANIE
History of Present Illness:
STEFFANIE/Cr down to 1. bates placed for retention of 600cc
Hgb down to 7.7
bp soft on midodrine
abx for GNR bcx/sepsis
echo valvular Heart disease, LVH
Review of Systems:
pain in legs-chronic
no CP
no n/v but po intake is poor
Labs
-
Labs:
WBC 16.4 10^3/uL (4.8-10.8) H 01/21/24 05:09
RBC 2.58 10^6/uL (4.20-5.40) L 01/21/24 05:09
Hgb 7.7 g/dL (12.0-16.0) L 01/21/24 05:09
Hct 24.6 % (37.0-47.0) L 01/21/24 05:09
Plt Count 169 10^3/uL (130-400) 01/21/24 05:09
Sodium 142 mmol/L (135-145) 01/21/24 05:09
Potassium 3.9 mmol/L (3.5-5.1) 01/21/24 05:09
Chloride 117 mmol/L (98-107) H 01/21/24 05:09
Carbon Dioxide 22 mmol/L (22-30) 01/21/24 05:09
BUN 34 mg/dl (7-17) H 01/21/24 05:09
Creatinine 1.0 mg/dL (0.6-1.0) 01/21/24 05:09
eGFR 55.55 01/21/24 05:09
Glucose 111 mg/dl (70-99) H 01/21/24 05:09
Calcium 8.1 mg/dl (8.4-10.2) L 01/21/24 05:09
Phosphorus 3.2 mg/dl (2.5-4.5) 01/19/24 03:14
Qtp-Y-Ioolylcxmco Pept 2690 pg/ml 01/16/24 11:31
Albumin 1.9 g/dl (3.5-5.0) L 01/21/24 05:09
Physical Exam
-
Vital Signs:
Vital Signs
Temp Pulse Resp BP Pulse Ox
97.6 F 65 18 98/50 96
01/21/24 07:45 01/21/24 07:45 01/21/24 07:45 01/21/24 07:45 01/21/24 07:45
Cardiovascular:: Regular rate and rhythm
Respiratory:: Bilateral: Coarse
Lung Excursion:: Normal
Abdomen:: Nontender and Soft
Bowel Sounds:: Decreased
Extremity Edema:: +2: Bilateral:
Bates Catheter: Yes
[2024-01-21] MEDS: PROTONIX IV 40 MG IV ×2 (10:07→20:02)
[2024-01-21] MEDS: NSS (PRESERVATIVE FREE) 10 ML IV ×2 (10:07→20:23)
--- NOTE | 2024-01-21 10:28 | W.SUR.PREOP ---
Pre-Operative Surgical Note
-
I have met with this patient and her three adult family members prior to the performance of the scheduled procedure.
The urologic pathology and proposed surgical intervention was discussed in detail. Risks of surgery and not pursuing surgery were detailed.
Anticipated urologic course explained.
Family and patient request that surgical debridement of wounds be done during the same anesthestic period --> I have reached out to Dr Hoawrd to ascertain whether this would be a viable option.
25 minutes spent.
Current OR consents not available in [facility], so will have consent signed in pre-op holding.
[2024-01-21] MEDS: ProAmatine 5 MG PO ×2 (10:50→19:33)
--- NOTE | 2024-01-21 11:45 | PTCARENOTE ---
Pt and Pt's daughter/sons were instructed on what to expect pre and post operatively. Both Pt and family verbalized understanding of instructions. Pt refused CHG wipes, and denture removal. Preop Nursing team notified. Antibiotics sent via tube
system to OR suite.
--- NOTE | 2024-01-21 12:55 | W.PN.GS2 ---
Today's Communication / Plan
-
Local wound care with santyl, saline wet to dry, off-loading, nutritional support
Assessment / Plan
-
83F with sacral pressure wound, likely osteomyelitis
I had a long discussion with the patient and her daughter and 2 sons. The pt's capacity waxes and wanes, unclear what her true wishes are though she is clear that her CC is pain. Options presented to the family included local wound care and
enzymatic debridement, with offloading and nutritional support vs surgical debridement. The benefit of debridement would be removal of necrotic tissue to reduce the risk of soft tissue infection. I suspect there is underlying osteomyelitis here,
thus there will always be risk of soft tissue infection even with debridement. Adding a concurrent procedure to the Urology procedure would prolong anesthesia time which would carry risks such as prolonged vent course and a more challenging
recovery. I also do not believe surgical debridement will help with her pain, it may in fact make the pain worse. I doubt given her age and comorbidities that she will ever heal this wound and considering her pain, I advised that I would not want to
prolong her suffering and made a strong recommendation for considering hospice care after the Urology procedure is complete. The family and patient were in agreement that we will defer surgical mgmt of the pressure wound for now, as the risks
presently outweigh the benefits. Should her condition improve, we could consider surgical debridement at that time.
GS will s/o pls call with ?s
Subjective Data
-
Date of Service: January 21, 2024
Asked to see pt again regarding potential surgical intervention for her sacral pressure wound concurrent with her planned Urology procedure. Her capacity waxes and wanes. One minute she seems to want intervention, the next she seems to want comfort
measures. She does c/o severe pain with little relief, mostly the pain is around her pressure wound.
Objective Data
-
Intake and Output
01/20/24 01/21/24 01/22/24
06:59 06:59 06:59
Intake Total 1905 / 1905 1340 / 1340
Output Total 2224 980 / 980
Balance -320 / -320 360 / 360
Intake:
Oral fluids 420 / 420 300 / 300
IV fluids (Total) 1285 / 1285 840 / 840
D5/0.45%NSS with KCL 20 MEQ 20 440 / 440
meq In 1,000 ml @ 40 mls/hr IV
.Q24H SARAVANAN Rx#:[id number]
IVF 1285 / 1285
IV piggybacks 200 / 200 200 / 200
Output:
Urine, Moraes 192 / 192 980 / 980
Urine, Voided 300 / 300
Vital Signs
Temp Pulse Resp BP Pulse Ox
97.6 F 65 18 98/50 96
01/21/24 07:45 01/21/24 07:45 01/21/24 07:45 01/21/24 07:45 01/21/24 07:45
Lab Results
01/21/24 05:09
01/21/24 05:09
Calcium 8.1 mg/dl (8.4-10.2) L 01/21/24 05:09
Phosphorus 3.2 mg/dl (2.5-4.5) 01/19/24 03:14
Magnesium 1.8 mg/dl (1.6-2.3) 01/19/24 03:14
Total Bilirubin 0.9 mg/dl (0.2-1.3) 01/21/24 05:09
AST 65 U/L (14-36) H 01/21/24 05:09
ALT 42 U/L (0-35) H 01/21/24 05:09
Alkaline Phosphatase 160 U/L (38-126) H 01/21/24 05:09
Total Protein 4.3 g/dl (6.3-8.2) L 01/21/24 05:09
Albumin 1.9 g/dl (3.5-5.0) L 01/21/24 05:09
Physical Exam
-
Stage IV pressure wound with granulation tissue in the base, exposed sacral bone, very thin rim of necrotic eschar and a small patch of dusky skin; no foul odor, no purulence, no fluctuance; very difficult exam 2/2 pain
[2024-01-21] MEDS: ProAmatine PO (13:00)
--- NOTE | 2024-01-21 13:29 | W.IMMPOSTOP ---
Surgical Immed Post Op Note
-
Primary Surgeon: Damir
Pre-op Diagnosis: Left Renal stone; Urosepsis
Post-op Diagnosis: same
Procedure Performed: Left Ureteroscopy, Laser Lithotripsy, Stenting
Anesthesia Type: gen
Specimen / Cultures: none
Estimated Blood Loss: negligible
Complications: none
Operative Findings: Large, triangle-shaped left renal pelvic stone with copious amount of aggregated infectious debris within collecting system
Tubes:
1. 6 Fr 22 cm left ureteral stent
2. Moraes
Family was NOT in waiting area immediately post-op.
--- NOTE | 2024-01-21 14:18 | PTOTSP ---
Patient s/p general anesthesia for surgery. New orders required to continue dysphagia therapy. Please place consult as able/appropriate if aligned with patient/family goals of care.
--- NOTE | 2024-01-21 14:34 | CM ---
OR today for Left Ureteroscopy, Laser Lithotripsy, Stenting. Await Therapy recommendation for discharge recommendation. Was at [facility] [employer] [employer]. Daughter wants LTACH, questionable of patient meets LTACH level of care. Await Therapy assessement.
[2024-01-21] MEDS: ROCEPHIN IV (16:09)
[2024-01-21] MEDS: STERILE WATER FOR INJECTION IV (16:10)
[2024-01-21] MEDS: FLAGYL 500 MG IV (16:13)
[2024-01-21] MEDS: ANTIFUNGAL CLEAR 1 APPLIC TOPICAL (20:02)
[2024-01-21] MEDS: COLACE LIQUID 100 MG PO (20:02)
[2024-01-21] MEDS: DAKIN'S SOLUTION 0.25% 1/2 STRENGTH 1 ML TOPICAL (20:02)
[2024-01-21] MEDS: DESITIN MAXIMUM STRENGTH PASTE 1 APPLIC TOPICAL (20:03)
[2024-01-21] MEDS: DESENEX/MITRAZOL/ZEASORB 1 APPLIC TOPICAL (20:24)
[2024-01-22] MEDS: DILAUDID 0.5 MG IV ×5 (02:28→23:28)
[2024-01-22 03:05] VITALS: BP 120/60
--- NOTE | 2024-01-22 05:34 | PTCARENOTE ---
MD given SBAR regarding order to pull bates, pt had a cystoscopy, left utereoscopy, stone fragmentation and removal, left ureteral stent placement. Pt has gross hematuria ,positive e-coli in urine, sepsis, a stage 4 sacral wound and at baseline is
incontinent of B and B. DrsGeronimo order to maintain bates in place.
[2024-01-22 06:00] VITALS: BMI 25.7
[2024-01-22 06:26] LABS: % Basophils 0.2 % (0-2); % Immature Granulocytes 5.1 % (0-0.5); % Lymphocytes 4.1 % (20.5-51.1); % Monocytes 3.2 % (1.7-9.3); % Neutrophils 87.4 % (42.2-75.2); Absolute Immature Granulocytes 0.9 10^3/uL (0-0.05); Absolute Lymphocytes 0.7 10^3/uL (1.2-3.4); Absolute Monocytes 0.6 10^3/uL (0.1-0.6); Absolute Neutrophils 15.3 10^3/uL (1.4-6.5); Hematocrit 24.7 % (37.0-47.0); Hemoglobin 7.7 g/dL (12.0-16.0); Mean Corp Hgb Conc. 31.2 g/dL (33.0-37.0); Mean Corpuscular Hgb 29.6 pg (27.0-31.0); Mean Platelet Volume 9.8 fL (7.4-10.4); Nucleated Red Blood Cells % 0 %; Platelet Count 189 10^3/uL (130-400); Red Cell Dist. Width 17.5 % (11.5-14.5); White Blood Cell Count 17.5 10^3/uL (4.8-10.8)
[2024-01-22 06:51] LABS: Blood Urea Nitrogen 32 mg/dl (7-17); Carbon Dioxide 22 mmol/L (22-30); Chloride 114 mmol/L (98-107); Estimated Creatinine Clearance 37 ml/min; Glucose 126 mg/dl (70-99); Potassium 4.3 mmol/L (3.5-5.1); Sodium 141 mmol/L (135-145); eGFR > 60.00
[2024-01-22 07:20] VITALS: BP 122/70
--- NOTE | 2024-01-22 08:14 | W.PN.HOSP.TC ---
Addendum entered and electronically signed by Héctor Rivera MD 01/22/24 17:09:
Patient seen and examined
Discussed with resident
Discussed with multiple family members at the bedside.
Impression:
Sepsis with septic shock/hypotension
Complicated UTI with left ureteral obstruction secondary to nephrolithiasis versus debris.
Acute urinary retention with hematuria requiring Bates catheter placement.
Sacral wound stage III�4 with concern for osteomyelitis and necrotic eschar.
Acute on chronic anemia
Abnormal transaminases
Right upper extremity PICC with line associated thrombosis
Acute kidney injury
Acute hyponatremia.
Chronic CHF preserved EF.
Valvular dysfunction with moderate MS, severe MR, moderate
Pulmonary hypertension
Paroxysmal atrial fibrillation
Bradycardia
Chronic bilateral lower extremity edema/lymphedema
Plan:
Sepsis with septic shock and hypotension
Most likely source is complicated UTI with left ureteral obstruction as well as acute renal obstruction and hematuria.
Blood culture likely contaminant with gram-negative anaerobe.
Urine culture with E. coli and Proteus
Antibiotics narrowed from cefepime/prednisone to ceftriaxone
Status post cystoscopy with left ureteral stone manipulation and stent placement.
Bates catheter remains in place with ongoing hematuria.
Sacral decub stage III-IV.
Suspect chronic osteomyelitis
Necrotic eschar noted
Surgical evaluation noted.
Agree with surgery assessment, at this point there is no clear clinical benefit for surgical debridement.
Continue wound care and offloading.
Septic shock with hypotension likely multifactorial secondary to infection as well as severe anemia
Improved with IV fluids, blood transfusion, had not required pressors. Initiated midodrine.
Patient with chronic CHF preserved left ventricular function and multiple valvular abnormalities as above. Pulmonary hypertension. Monitor volume status closely. Continue midodrine with caution.
Acute kidney injury improved with IV hydration and blood transfusions
Creatinine improved
Maintain Bates catheter.
Acute anemia secondary to dilution as well as blood loss with hematuria
Hemoglobin improved with transfusion. Monitor closely.
Paroxysmal atrial fibrillation
Episode of bradycardia, currently resolved. Reintroduce amiodarone and monitor closely.
Hold Eliquis given hematuria.
Disposition: Overall patient with advanced dementia, bedbound with multiple comorbidities not limited to sepsis, UTI with risk of recurrence, sacral wound. Ongoing goals of care discussion.
CODE STATUS DNR
Original Note:
Today's Communication/Plan
-
S/P left ureteroscopy, stent
Continue IV Rocephin
Assessment / Plan
Assessment / Plan
IMPRESSION: This is a 83-year-old female patient with PMH of atrial fibrillation on Eliquis, CHF, HTN, anemia, hyperlipidemia, and CKD presenting to the ED with PICC line in right upper extremity for hypotension and bilateral lower extremity edema.
PLAN:
#Severe Sepsis (multifactorial, likely from complicated UTI)
-E. coli/Proteus in urine
-Blood culture 01/15 positive with gram-negative bacilli.
-Continue midodrine
-US right upper extremity; Small nonocclusive thrombus formation in the basilic vein.
-Lactic acid normal
-CT Abd/pelvis showed Large volume stool filling the rectum, Sigmoid diverticulosis.
-Continue bowel regimen
-CT with left renal calculus debris within the collecting system and renal pelvis, no definite hydronephrosis
-monitor bates for hematuria
-S/P urological procedure: Left Ureteroscopy, Laser Lithotripsy, Stenting, left renal pelvic stone
-Continue IV Rocephin
-Possible disposition to facility([facility] vs SNF) in [place] with daughter
-follow cbc, bmp in AM
#stage 3-4 sacral decubitus ulcer
-necrotic eschar noted; possible chronic underlying osteomyelitics
-gen surgery consulted for wound debridement; currently will defer debridement
- continue wound care
#STEFFANIE
-improved with IV hydration
-Cr stable
-monitor bmp in AM
#Acute anemia
-continue PPI
-Transfused on 01/16
-HB today is 7.8
-monitor cbc
-hold eliquis due to gross hematuria in Bates
#Transaminitis
-Likely secondary to sepsis
-LFTs trending down
-Monitor cmp in AM
#Bilateral lower extremity lymphedema/Ulcer on right posterior heel
-Seen by podiatry and they do not think right heel wound is a source of infection.
-Tibia/fibula xray showed Marked diffuse soft tissue swelling about the right foot and right ankle, Degenerative changes and diffuse osteopenia.
-U/S for B/L lower extremities: no DVT
#CHFpEF/?New systolic murmur
-Echo showed EF 70-75% and LVH; does not appear to be in exacerbation
-Hold current hypertensive medications (spironolactone, furosemide)
-proBNP is 2690 on 01/15
-Monitor Is/Os, daily weights
-Monitor telemetry
#Paroxysmal atrial fibrillation
-hold amiodarone; bradycardia
-Hold Eliquis
-Monitor telemetry
#Elevated TSH and free t4
-check levels again after infection is resolved
DVT: SCD's
Code: DNR
Anticipated Discharge: 24 - 48 hours
Subjective/Interval History
-
Date of Service: January 22, 2024
Objective Data
-
Labs:
Laboratory Results
01/22/24
05:35
WBC 17.5 H
Hgb 7.7 L
Hct 24.7 L
Plt Count 189
Sodium 141
Potassium 4.3
Chloride 114 H
Carbon Dioxide 22
BUN 32 H
Creatinine 0.9
Glucose 126 H
Calcium 8.0 L
Vital Signs:
Vital Signs
Temp Pulse Resp BP Pulse Ox
98 F 71 16 120/60 93
01/22/24 03:05 01/22/24 03:05 01/22/24 03:05 01/22/24 03:05 01/22/24 03:05
I&O
01/21/24 01/22/24 01/23/24
06:59 06:59 06:59
Intake Total 1340 / 1340 360 / 360
Output Total 980 / 980 600 / 600
Balance 360 / 360 -240 / -240
Review of Systems
-
History Source: Patient
All other systems: Reviewed and negative
Physical Exam
-
General: No Apparent Distress
HEENT: Normocephalic
Respiratory: Clear to Auscultation
Cardiac: Regular Rhythm, S1/S2 and Murmur (systolic murmur)
GI: Soft and Nontender
Genito-urinary: Bates
Musculoskeletal: Edema, Right Lower Extrem and Edema, Left Lower Extrem
Skin: Decubitus Ulcers (sacral)
Neuro: Awake, Alert and Oriented
Psych: Calm
[2024-01-22] MEDS: ANTIFUNGAL CLEAR 1 APPLIC TOPICAL ×2 (09:03→23:18)
[2024-01-22] MEDS: COLACE LIQUID 100 MG PO ×2 (09:04→23:17)
[2024-01-22] MEDS: DAKIN'S SOLUTION 0.25% 1/2 STRENGTH 473 ML TOPICAL (09:04)
[2024-01-22] MEDS: DESITIN MAXIMUM STRENGTH PASTE 1 APPLIC TOPICAL ×3 (09:04→23:19)
[2024-01-22] MEDS: DESENEX/MITRAZOL/ZEASORB 1 APPLIC TOPICAL ×2 (09:05→23:17)
[2024-01-22] MEDS: SANTYL OINTMENT 1 APPLIC TOPICAL ×2 (09:06→23:17)
[2024-01-22] MEDS: ProAmatine 5 MG PO ×3 (09:06→17:36)
[2024-01-22] MEDS: PROTONIX IV 40 MG IV (09:06)
[2024-01-22] MEDS: NSS (PRESERVATIVE FREE) 10 ML IV (09:06)
--- NOTE | 2024-01-22 10:00 | W.PN.URO.CBU ---
Today's Communication / Plan
-
Given non-ambulatory status and decubitus ulcers, Moraes should be maintained
Left Ureteral stent should be removed in ~ 1 month
Assessment / Plan
-
Urease-splitting organisms in urine c/w infection-laden calcium and vjwwocnme-pvstjgzk-irsnqjjns stones
Diagnosis
-
Date of Service: January 22, 2024
-
Patient Diagnosis:
Sepsis
E coli and Proteus UTI
Left renal pelvis and collecting system: calcareous material s/p Left ureteroscopy, laser lithotripsy, stenting 01/20
gross hematuria via Moraes -- thin, clot-free
DNR/DNI
Subjective
-
calm
Objective
-
Vital Signs
Temp Pulse Resp BP Pulse Ox
98.2 F 68 16 122/70 95
01/22/24 07:20 01/22/24 07:20 01/22/24 07:20 01/22/24 07:20 01/22/24 07:20
Intake and Output
01/21/24 01/22/24 01/23/24
06:59 06:59 06:59
Intake Total 1340 / 1340 360 / 360
Output Total 980 / 980 600 / 600
Balance 360 / 360 -240 / -240
Intake:
Oral fluids 300 / 300 360 / 360
IV fluids (Total) 840 / 840
D5/0.45%NSS with KCL 20 MEQ 20 440 / 440
meq In 1,000 ml @ 40 mls/hr IV
.Q24H SARAVANAN Rx#:[id number]
IV piggybacks 200 / 200
Output:
Urine, Moraes 980 / 980 450 / 450
Urine, Voided 150 / 150
Laboratory Results
01/22/24 05:35
01/22/24 05:35
urine cx: proteus and E. coli
Physical Exam
-
General -supine in be, no acute distress
Genitalia - Moraes with thinly bloody urine
--- NOTE | 2024-01-22 10:01 | W.PN.NEPH.PH ---
Today's Communication / Plan
-
sgin off
Assessment/Plan
-
Assessment:
Hypotension
Acute kidney injury
Hypomagnesemia
Metabolic acidosis
Azotemia
Hyponatremia
Acute anemia
Lymphedema
Elevated LFTs
nonobstructive left nephrolithiasis
Echo 01/18:
EF 70-75%, mod to severe LVH, DD intermediate
mod MS, severe MR, mod , mod TR
Plan:
STEFFANIE-cr improving and non oliguric now down to 0.9 and remains grossly non oliguric
Status post stone extraction sacral decubiti debridement
Creatinine back to baseline we will sign off
-
-
Date of Service: January 22, 2024
CC / HPI / ROS
-
Chief Complaint:
STEFFANIE
History of Present Illness:
STEFFANIE/Cr down to 0.9 bates placed for retention of 600cc
s/p sotne extraction and sacral decubiti on 01/20
bp soft on midodrine
abx for GNR bcx/sepsis
echo valvular Heart disease, LVH
Review of Systems:
pain in legs-chronic
no CP
no n/v but po intake is poor
Labs
-
Labs:
WBC 17.5 10^3/uL (4.8-10.8) H 01/22/24 05:35
RBC 2.60 10^6/uL (4.20-5.40) L 01/22/24 05:35
Hgb 7.7 g/dL (12.0-16.0) L 01/22/24 05:35
Hct 24.7 % (37.0-47.0) L 01/22/24 05:35
Plt Count 189 10^3/uL (130-400) 01/22/24 05:35
Sodium 141 mmol/L (135-145) 01/22/24 05:35
Potassium 4.3 mmol/L (3.5-5.1) 01/22/24 05:35
Chloride 114 mmol/L (98-107) H 01/22/24 05:35
Carbon Dioxide 22 mmol/L (22-30) 01/22/24 05:35
BUN 32 mg/dl (7-17) H 01/22/24 05:35
Creatinine 0.9 mg/dL (0.6-1.0) 01/22/24 05:35
eGFR > 60.00 01/22/24 05:35
Glucose 126 mg/dl (70-99) H 01/22/24 05:35
Calcium 8.0 mg/dl (8.4-10.2) L 01/22/24 05:35
Phosphorus 3.2 mg/dl (2.5-4.5) 01/19/24 03:14
Yom-E-Rgbifxvtncv Pept 2690 pg/ml 01/16/24 11:31
Albumin 1.9 g/dl (3.5-5.0) L 01/21/24 05:09
Physical Exam
-
Vital Signs:
Vital Signs
Temp Pulse Resp BP Pulse Ox
98.2 F 68 16 122/70 95
01/22/24 07:20 01/22/24 07:20 01/22/24 07:20 01/22/24 07:20 01/22/24 07:20
Cardiovascular:: Regular rate and rhythm
Respiratory:: Bilateral: Coarse
Lung Excursion:: Normal
Abdomen:: Nontender and Soft
Bowel Sounds:: Normal
Extremity Edema:: +1: Bilateral:
Bates Catheter: Yes
[2024-01-22] MEDS: ROCEPHIN 1000 MG IV (11:58)
[2024-01-22] MEDS: STERILE WATER FOR INJECTION 10 ML IV (11:58)
[2024-01-22] MEDS: XANAX 0.25 MG PO (12:35)
--- NOTE | 2024-01-22 12:56 | PTOTSP ---
Dysphagia Therapy
Patient is appropriate to resume regular, thin liquid diet at this time. Encouraged HOB elevation as close to 90 degrees as tolerated. Instructed patient to avoid slippery foods (i.e., fruit cup, soup) which are at increased risk to passively
spill posteriorly if eating in a reclined position. Patient/family verbalized agreement.
Recommend:
1. Regular, Thin Liquids
2. Medications as best tolerated
3. Strategies: upright as close to 90 degrees as possible, small single sips/bites, avoid mixed consistencies or very slippery foods if eating in a semi-reclined position
4. Oral care 3x daily
5. No further dysphagia therapy warranted. Please reconsult as appropriate. If concerned for aspiration please reconsult via swallow study if able to tolerate upright position and aligned with family goals of care.
--- NOTE | 2024-01-22 13:29 | CM ---
This CM called [facility] for update on referral. Phone rang with no answer. Called back and rang again for long period, Ginger answered and transferred to admissions. No answer in admissions and voice mail was full. Called main number and again
no answer after innumerable rings. Patient is from [facility] who is willing to accept patient. Daughter preference is [facility] for wound care. Discharge Plan of Care: LTAC vs SNF.
--- NOTE | 2024-01-22 14:45 | WOUNDNOTE ---
WOC RN note: Boby Noyola re: recommend air mattress at SNF if not already in place. She has a stage 4 sacral pressure injury.
[2024-01-22 15:00] VITALS: BP 116/72
[2024-01-22 23:11] VITALS: BP 117/59
[2024-01-22] MEDS: NSS (PRESERVATIVE FREE) IV (23:36)
[2024-01-23 05:04] VITALS: BMI 26.2
[2024-01-23] MEDS: ROXICODONE 5 MG PO ×2 (05:05→16:06)
[2024-01-23] MEDS: DILAUDID 0.5 MG IV ×2 (06:07→11:43)
[2024-01-23 07:00] VITALS: BP 110/44
[2024-01-23 07:39] LABS: % Basophils 0.3 % (0-2); % Eosinophils 0.2 % (0-6); % Immature Granulocytes 5.4 % (0-0.5); % Lymphocytes 9.3 % (20.5-51.1); % Monocytes 4.8 % (1.7-9.3); Absolute Immature Granulocytes 0.8 10^3/uL (0-0.05); Absolute Lymphocytes 1.4 10^3/uL (1.2-3.4); Absolute Monocytes 0.7 10^3/uL (0.1-0.6); Hematocrit 27.1 % (37.0-47.0); Hemoglobin 8.2 g/dL (12.0-16.0); Mean Corp Hgb Conc. 30.3 g/dL (33.0-37.0); Mean Corpuscular Hgb 29.3 pg (27.0-31.0); Mean Corpuscular Volume 96.8 fL (81.0-99.0); Mean Platelet Volume 9.8 fL (7.4-10.4); Nucleated Red Blood Cells % 0 %; Platelet Count 207 10^3/uL (130-400); Red Cell Dist. Width 17.7 % (11.5-14.5); White Blood Cell Count 14.9 10^3/uL (4.8-10.8)
--- NOTE | 2024-01-23 07:59 | W.PN.HOSP.TC ---
Addendum entered and electronically signed by Héctor Rivera MD 01/23/24 15:02:
Patient seen and examined
Discussed with resident
Discussed with multiple family members at the bedside.
Impression:
Sepsis with septic shock/hypotension
Complicated UTI with left ureteral obstruction secondary to nephrolithiasis versus debris.
Acute urinary retention with hematuria requiring Bates catheter placement.
Sacral wound stage III�4 with concern for osteomyelitis and necrotic eschar.
Acute on chronic anemia
Abnormal transaminases
Right upper extremity PICC with line associated thrombosis
Acute kidney injury
Acute hyponatremia.
Chronic CHF preserved EF.
Valvular dysfunction with moderate MS, severe MR, moderate
Pulmonary hypertension
Paroxysmal atrial fibrillation
Bradycardia
Chronic bilateral lower extremity edema/lymphedema
Plan:
Sepsis with septic shock and hypotension
Most likely source is complicated UTI with left ureteral obstruction as well as acute renal obstruction and hematuria.
Blood culture likely contaminant with gram-negative anaerobe.
Urine culture with E. coli and Proteus
Antibiotics narrowed from cefepime/prednisone to ceftriaxone. Complete course of treatment through 01/27
Status post cystoscopy with left ureteral stone manipulation and stent placement.
Bates catheter remains in place with ongoing hematuria as well as from the point of wound care and cross-contamination
Sacral decub stage III-IV.
Suspect chronic osteomyelitis
Necrotic eschar noted
Surgical evaluation noted.
Agree with surgery assessment, at this point there is no clear clinical benefit for surgical debridement.
Continue wound care and offloading.
Septic shock with hypotension likely multifactorial secondary to infection as well as severe anemia
Improved with IV fluids, blood transfusion, had not required pressors. Initiated midodrine.
Patient with chronic CHF preserved left ventricular function and multiple valvular abnormalities as above. Pulmonary hypertension. Monitor volume status closely. Continue midodrine with caution.
Acute kidney injury improved with IV hydration and blood transfusions
Creatinine improved
Maintain Bates catheter.
Acute anemia secondary to dilution as well as blood loss with hematuria
Hemoglobin improved with transfusion. Monitor closely.
Paroxysmal atrial fibrillation
Episode of bradycardia, currently resolved. Reintroduce amiodarone and monitor closely.
Reinstate anticoagulation with Eliquis once hematuria cleared and stable hemoglobin.
Disposition: Discussed with patient's daughter as well as case management. Plan is to discharge to LTAC for further wound care, completion of antibiotic course, Bates management, rehabilitation.
Original Note:
Today's Communication/Plan
-
Discharge today to [facility]
Continue IV Rocephin for 3 more days upon discharge
Continue chronic indwelling Bates and monitor for gross hematuria (resumption of Eliquis depending on clear output)
Urological stent removal to be done in 1 month
Assessment / Plan
Assessment / Plan
IMPRESSION: This is a 83-year-old female patient with PMH of atrial fibrillation on Eliquis, CHF, HTN, anemia, hyperlipidemia, and CKD presenting to the ED with PICC line in right upper extremity for hypotension and bilateral lower extremity edema.
PLAN:
#Severe Sepsis (multifactorial, likely from complicated UTI)
-E. coli/Proteus in urine
-Blood culture 01/15 positive with gram-negative bacilli.
-Continue midodrine
-US right upper extremity; Small nonocclusive thrombus formation in the basilic vein.
-Lactic acid normal
-CT Abd/pelvis showed Large volume stool filling the rectum, Sigmoid diverticulosis.
-Continue bowel regimen
-CT with left renal calculus debris within the collecting system and renal pelvis, no definite hydronephrosis
-monitor bates for hematuria
-S/P urological procedure: Left Ureteroscopy, Laser Lithotripsy, Stenting, left renal pelvic stone
-Continue IV Rocephin for another 3 days upon discharge
-Discharge today to long-term care facility (daughter wants to attempt to move patient to [place] after stay in facility)
-Discharge with chronic indwelling bates and stent removal to be done in 1 month.
-Continuation of Eliquis to be determined care facility after monitoring for gross hematuria in Bates
#stage 3-4 sacral decubitus ulcer
-necrotic eschar noted; possible chronic underlying osteomyelitics
-gen surgery consulted for wound debridement; currently will defer debridement
- continue wound care
#STEFFANIE
-improved with IV hydration
-Cr stable
-monitor bmp in AM
#Acute anemia
-continue PPI
-Transfused on 01/16
-HB today is 7.8
-monitor cbc
-hold eliquis due to gross hematuria in Bates
#Transaminitis
-Likely secondary to sepsis
-LFTs trending down
-Monitor cmp in AM
#Bilateral lower extremity lymphedema/Ulcer on right posterior heel
-Seen by podiatry and they do not think right heel wound is a source of infection.
-Tibia/fibula xray showed Marked diffuse soft tissue swelling about the right foot and right ankle, Degenerative changes and diffuse osteopenia.
-U/S for B/L lower extremities: no DVT
#CHFpEF/?New systolic murmur
-Echo showed EF 70-75% and LVH; does not appear to be in exacerbation
-Hold current hypertensive medications (spironolactone, furosemide)
-proBNP is 2690 on 01/15
-Monitor Is/Os, daily weights
-Monitor telemetry
#Paroxysmal atrial fibrillation
-hold amiodarone; bradycardia
-Hold Eliquis
-Monitor telemetry
#Elevated TSH and free t4
-check levels again after infection is resolved
DVT: SCD's
Code: DNR
Anticipated Discharge: Within 24 hours
Subjective/Interval History
-
Date of Service: January 23, 2024
Objective Data
-
Labs:
Laboratory Results
01/23/24
07:19
WBC 14.9 H
Hgb 8.2 L
Hct 27.1 L
Plt Count 207
Sodium Pending
Potassium Pending
Chloride Pending
Carbon Dioxide Pending
BUN Pending
Creatinine Pending
Glucose Pending
Calcium Pending
Vital Signs:
Vital Signs
Temp Pulse Resp BP Pulse Ox
97.9 F 66 20 110/44 100
01/23/24 07:00 01/23/24 07:00 01/23/24 07:00 01/23/24 07:00 01/23/24 07:00
I&O
01/22/24 01/23/24 01/24/24
06:59 06:59 06:59
Intake Total 360 / 360 360 / 360
Output Total 600 / 600 600 / 600
Balance -240 / -240 -240 / -240
Review of Systems
-
History Source: Patient
All other systems: Reviewed and negative
[2024-01-23 08:05] LABS: Blood Urea Nitrogen 31 mg/dl (7-17); Carbon Dioxide 25 mmol/L (22-30); Chloride 112 mmol/L (98-107); Estimated Creatinine Clearance 33 ml/min; Glucose 111 mg/dl (70-99); Potassium 4.1 mmol/L (3.5-5.1); Sodium 138 mmol/L (135-145); eGFR 55.55
[2024-01-23] MEDS: PACERONE 200 MG PO (08:50)
[2024-01-23] MEDS: ProAmatine 5 MG PO ×3 (08:51→17:17)
[2024-01-23] MEDS: PROTONIX 20 MG PO (08:51)
[2024-01-23] MEDS: ANTIFUNGAL CLEAR 1 APPLIC TOPICAL (08:52)
[2024-01-23] MEDS: COLACE LIQUID 100 MG PO (08:52)
[2024-01-23] MEDS: DESITIN MAXIMUM STRENGTH PASTE 1 APPLIC TOPICAL ×2 (08:53→16:10)
[2024-01-23] MEDS: DAKIN'S SOLUTION 0.25% 1/2 STRENGTH 473 ML TOPICAL (08:53)
[2024-01-23] MEDS: DESENEX/MITRAZOL/ZEASORB 1 APPLIC TOPICAL (08:54)
[2024-01-23] MEDS: SANTYL OINTMENT 1 APPLIC TOPICAL (08:55)
--- NOTE | 2024-01-23 09:09 | W.PN.URO.CBU ---
Today's Communication / Plan
-
given non-ambulatory status and decubitus ulcers, maintainance of chronic, indwelling Moraes is indicated
Assessment / Plan
-
Urease-splitting organisms in urine c/w infection-laden calcium and cxtvtjpfw-akkaqhhi-azwigbars stones
Diagnosis
-
Date of Service: January 23, 2024
-
Patient Diagnosis:
Sepsis
E coli and Proteus UTI
Left renal pelvis and collecting system: calcareous material s/p Left ureteroscopy, laser lithotripsy, stenting 01/20
gross hematuria via Moraes -- thin, clot-free
DNR/DNI
Objective
-
Vital Signs
Temp Pulse Resp BP Pulse Ox
97.9 F 66 20 110/44 96
01/23/24 07:00 01/23/24 07:00 01/23/24 07:00 01/23/24 07:00 01/23/24 08:49
Intake and Output
01/22/24 01/23/24 01/24/24
06:59 06:59 06:59
Intake Total 360 / 360 360 / 360
Output Total 600 / 600 600 / 600
Balance -240 / -240 -240 / -240
Intake:
Oral fluids 360 / 360 360 / 360
Output:
Urine, Moraes 450 / 450 600 / 600
Urine, Voided 150 / 150
Laboratory Results
01/23/24 07:19
01/23/24 07:19
Physical Exam
-
General - well developed, well nourished, no acute distress
Chest - clear bilaterally
Abdomen - soft, non-tender, positive bowel sounds, no CVAT, no incisional pain or distention
Genitalia - normal
Rectal - normal
Skin - warm & dry with no rash
Neuro - AOx3, no motor deficits
Extremities - no clubbing, no cyanosis, no edema
Incision - clean, dry
Dressing - clean, dry, intact
[2024-01-23] MEDS: NSS (PRESERVATIVE FREE) IV (10:15)
[2024-01-23] MEDS: STERILE WATER FOR INJECTION 10 ML IV (11:25)
[2024-01-23] MEDS: ROCEPHIN 1000 MG IV (11:25)
--- NOTE | 2024-01-23 11:29 | W.DCSUMMARY ---
Documented by User: Talia Christianson, Resident, 01/23/24 13:57
Discharge Summary
Discharge Data
Date of Admission: 01/16/24
Date of Discharge: 01/23/24
-
Pending Results: No
Hospital Course
This is a 83-year-old female patient with PMH of atrial fibrillation on Eliquis, CHF, HTN, anemia, hyperlipidemia, and CKD who presented to the ED with PICC line in right upper extremity for hypotension and bilateral lower extremity edema.
1)Sepsis with septic shock and hypotension(multifactorial, likely from complicated UTI)
She was started on IV vancomycin and Azactam empirically with U/a showing possible UTI, urine and blood cultures cultures were sent. Blood cultures were negative but urine cultures showed growth of E. coli and Proteus. CT abdomen showed left renal
stones with possible suspected obstructive uropathy. Patient continued to be hypotensive and was admitted to the ICU for further care. Midodrine was started due to hypotension. Antibiotics�IV vancomycin had been discontinued and changed to
cefepime and Flagyl. Patient had acute urinary retention with gross hematuria which required a Moraes catheter placement. Left ureterorenoscopy was done and showed left renal pelvic stone with infected debris. Her gross hematuria after procedures
started still being monitored for. Antibiotics were narrowed from cefepime to IV ceftriaxone. Her Eliquis was held since admission. She is to continue IV ceftriaxone for another 3 days upon discharge from [facility]. She is to continue
chronic indwelling Moraes due to her nonambulatory status and sacral ulcer, Moraes to be changed as physician at LT. Urological stent to be removed. Continuation of Eliquis is to be determined by [facility].
2)Stage 3-4 sacral decubitus ulcer
This was a stage III/IV sacral decubitus ulcer with possible underlying osteomyelitis. Surgical debridement versus local wound care was discussed with family, surgical debridement was deferred for a later time once conditions improved.
Continue local wound care.
3)Acute on chronic anemia likely combination of dilution, iron deficiency, acute hematuria
Patient's hemoglobin had dropped to 6.6 and was given blood transfusion 01/17/2024. Hemoglobin improved to 8. Continue monitoring hemoglobin.
4)Acute kidney injury secondary to hypotension
Creatinine proved from 3.0-1.4 over course of hospital stay with IV hydration. Avoid further hypotension. Continue midodrine. Continue Moraes catheter. Hyponatremia improved with volume repletion. Monitor creatinine.
5)CHFpEF
ECHO on 01/18 showed: LV ejection fraction is 70-75%, Valvular dysfunction with moderate MS, severe MR, moderate . Patient was not overloaded. Stable.
6)Paroxysmal atrial fibrillation
Patient's metoprolol and amiodarone were held due to hypotension and mild bradycardia respectively. Patient's amiodarone was resumed once heart rate resumed, monitor. Eliquis was held on admission and continued to be held due to gross hematuria.
Gross hematuria is slowly improving. Continuation of Eliquis is to be determined by LTAC.
Patient will be discharged today to LTAC.
Discharge Plan
-
[facility] Disposition: [facility]
Condition: Good
Discharge Orders:
Discharge Patient (As Directed); Ordered 01/23/24
Ordered By: Talia Christianson
Discharge Date and Time
Print Language: TAJIK

Documented by User: Héctor Rivear MD 01/23/24 15:00
Discharge Summary
Discharge Data
Date of Admission: 01/16/24
Date of Discharge: 01/23/24
Discharge Plan
-
Patient Disposition: [facility]
Condition: Good
Discharge Orders:
Discharge Patient (As Directed); Ordered 01/23/24
Ordered By: Talia Mamta Kasarapu
Discharge Date and Time
Print Language: TAJIK
[2024-01-23 15:00] VITALS: BP 98/67
[2024-01-23 15:24] VITALS: BP 98/67
--- NOTE | 2024-01-23 15:44 | CM ---
Patient has been medically cleared for discharge to [facility] ([facility]) for senior living and wound care. Martha, liaison, has been notified that patient requires an air mattress for sacral and other wounds. Ambulance transport
scheduled for 6:00 PM. Patient, daughter, son, team notified.
NURSE TO NURSE REPORT # [phone]
FAX # [phone]
--- NOTE | 2024-01-23 17:06 | W.DS.TRANS ---
DC Summary - Buyer Liaison
-
Discharge Instructions:
Instructions:
Stand-Alone Forms:
Changes to Home Medications: Yes
Discharge Medications:
DC Medications w/original date entered in [employer]
Dextrose 5%/Electrolyte #48 1 dose IV .EVERY SHIFT 01/16/24
Zinc Oxide Paste 1 applic topical TID left buttock 01/16/24
acetaminophen 325 mg tablet (Tylenol) 650 mg PO Q4H PRN mild pain 01/16/24
amiodarone 200 mg tablet 200 mg PO DAILY Arrhythmia 01/16/24
apixaban 2.5 mg tablet (Eliquis) 2.5 mg PO BID Blood Clot Prevention/Tx 01/16/24
bisacodyl 10 mg rectal suppository 10 mg [place] DAILY PRN if no results for MOM 01/16/24
cholecalciferol (vitamin D3) 1,250 mcg (50,000 unit) capsule 1,250 mcg PO Q30D Supplement 01/16/24
cholecalciferol (vitamin D3) 125 mcg (5,000 unit) tablet 125 mcg PO Q30D Supplement 01/16/24
miconazole nitrate 2 % topical cream (Micatin) 1 applic topical BID B/L breast 01/16/24
nystatin 100,000 unit/gram topical powder 1 applic topical BID abd fold 01/16/24
oxycodone 5 mg tablet 5 mg PO Q8H PRN severe pain 01/16/24
povidone-iodine 10 % topical solution (Betadine) 1 applic topical Q48H left calf 01/16/24
sennosides 8.6 mg tablet (senna) 8.6 mg PO [id number] PRN constipation 01/16/24
sodium hypochlorite 0.25 % solution (Dakin's Solution) 1 applic topical DAILY right heel 01/16/24
alprazolam 0.25 mg tablet 0.25 mg PO Q8HPRN PRN anxiety #10 tabs 01/23/24
ceftriaxone 1 gram solution for injection 1,000 mg IV Q24H #5 ea 01/23/24
hydromorphone (PF) 0.5 mg/0.5 mL injection syringe (Dilaudid (PF)) 0.5 mg (0.5 mL) IV Q4HPRN PRN moderate-severe pain #10 mL 01/23/24
midodrine 5 mg tablet 5 mg PO TID@0800,1300,1800 #90 tabs 01/23/24
oxycodone 5 mg tablet 5 mg PO Q8HPRN PRN severe pain #20 tabs 01/23/24
pantoprazole 20 mg tablet,delayed release 20 mg PO DAILY #30 tabs 01/23/24
Home Medication Changes
Eliquis to be reinstated with clearance of hematuria.
Lasix and Aldactone has been discontinued due to hypovolemia and hypotension.
Metoprolol has been discontinued due to bradycardia, while amiodarone reinstated.
Antibiotics/ceftriaxone to complete course through 01/28/24.
Pending Results: No
[2024-01-23] MEDS: DILAUDID 1 MG IV (17:17)
== END 2024-01-23 18:03 | disposition other institution (70) | DRG 853 ==
LOC: 2 SOUTH 15:54
PROVIDERS: Internal Medicine; Internal Medicine Critical Care Medicine; Nurse Practitioner Primary Care; Student in an Organized Health Care Education/Training Program; ADMITTING PHYSICIAN Family Medicine; ATTENDING PHYSICIAN Internal Medicine; CONSULT PHYSICIAN Internal Medicine Critical Care Medicine; CONSULT PHYSICIAN Podiatrist Foot & Ankle Surgery; CONSULT PHYSICIAN Specialist; CONSULT PHYSICIAN Surgery; EMERGENCY PHYSICIAN Emergency Medicine; FAMILY PHYSICIAN Internal Medicine
PROC: 30233R1 Transfusion of Nonautologous Platelets into Peripheral Vein, Percutaneous Approach (ICD-10-PCS; 2024-01-17)
PROC: 30233N1 Transfusion of Nonautologous Red Blood Cells into Peripheral Vein, Percutaneous Approach (ICD-10-PCS; 2024-01-17)
PROC: 0TF48ZZ Fragmentation in Left Kidney Pelvis, Via Natural or Artificial Opening Endoscopic (ICD-10-PCS; 2024-01-21)
PROC: 0T778DZ Dilation of Left Ureter with Intraluminal Device, Via Natural or Artificial Opening Endoscopic (ICD-10-PCS; 2024-01-21)
DX: A41.9 Sepsis, unspecified organism (principal); G92.8 Other toxic encephalopathy; L89.154 Pressure ulcer of sacral region, stage 4; L89.613 Pressure ulcer of right heel, stage 3; L89.153 Pressure ulcer of sacral region, stage 3; R65.21 Severe sepsis with septic shock; D62 Acute posthemorrhagic anemia; N17.9 Acute kidney failure, unspecified; D68.9 Coagulation defect, unspecified; E87.1 Hypo-osmolality and hyponatremia; L97.419 Non-pressure chronic ulcer of right heel and midfoot with unspecified severity; M46.28 Osteomyelitis of vertebra, sacral and sacrococcygeal region; N13.6 Pyonephrosis; I13.0 Hypertensive heart and chronic kidney disease with heart failure and stage 1 through stage 4 chronic kidney disease, or unspecified chronic kidney disease; I50.32 Chronic diastolic (congestive) heart failure; R31.0 Gross hematuria; I48.0 Paroxysmal atrial fibrillation; E88.09 Other disorders of plasma-protein metabolism, not elsewhere classified; E83.42 Hypomagnesemia; B96.20 Unspecified Escherichia coli [E. coli] as the cause of diseases classified elsewhere; N18.9 Chronic kidney disease, unspecified
CPT/HCPCS: 51701; 71045; 73590; 73620; 74018; 74176; 76000; 76705; 76770; 80048; 80053; 80202; 81003; 81015; 81099; 82533; 82570; 82607; 82728; 82746; 82962; 83540; 83550; 83605; 83735; 83880; 83935; 84100; 84145; 84156; 84300; 84439; 84443; 84466; 84484; 85014; 85018; 85025; 85610; 85652; 85730; 86140; 86850; 86900; 86901; 86920; 87040; 87070; 87077; 87086; 87149; 87186; 87205; 92526; 92610; 93005; 93306; 93970; 93971; 96361; 96365; 96366; 96375; 99291; C1894; C2617; P9016; P9047; P9059